=== PATIENT | male | born 1945 | race Caucasian/White ===

== ENCOUNTER 2018-03-11 16:27 | Emergency (ER) | payer OTHER, SELFPAY ==
[2018-03-11 16:28] VITALS: BP 162/71; PULSE 66; RESP 16; TEMP 36.9; O2SAT 99; BMI 28.8
--- NOTE | 2018-03-11 16:31 | RAD_ITS ---
STUDY: X-RAY - RIGHT SHOULDER REASON FOR EXAM: Male, 72 years old. Pain TECHNIQUE: 4 view(s) of the shoulder. COMPARISON: None. FINDINGS: Normal glenohumeral articulation. There is hypertrophic osteoarthrosis of the acromioclavicular joint with inferior osseous spur formation. Normal acromion. Normal humeral head and visualized proximal humerus. The soft tissue structures are unremarkable. There is no demonstrated fracture. Normal visualized pulmonary apex. RAD/Shoulder min 2 Views IMPRESSION: Acromioclavicular degenerative change. Electronically Signed: Sander Teague MD at 17:08 EDT , Service support ,
--- NOTE | 2018-03-11 16:57 | ED.VISSUMM ---
- ER Visit Summary Date of Service: 03/11/18 Chief Complaint: Right shoulder injury History of Present Illness: The patient is a 72 M Zentz to the emergency department with right shoulder injury. Patient was walking outdoors. He slipped and fell backwards. He landed on his buttocks and then hit his right elbow. He states his right shoulder jammed up into the joint. Since then, he has had some increasing pain and diminished range of motion. He did not strike his head. He denies loss of consciousness. He denies other injury. He does not taken anything for pain. He has had no prior problems with shoulder injury or other orthopedic issues. Physical Examination: Exam is relatively unremarkable. Patient does have some tenderness to palpation over the joint but there is no gross laxity. There is no pain at the elbow. Axillary nerve is preserved. There is normal pulses. Lungs are clear. Neck is nontender. Test Results: [] Emergency Department Course and Treatment: X-rays obtained. There is some chronic arthritis in the joint, but no evidence of fracture dislocation. Clinically, I do for the patient likely has rotator cuff injury. He will be placed in a sling for comfort. He will be given 2 days of analgesics. He will be given outpatient orthopedic follow-up. He is comfortable with this plan of care and will be discharged. Treatment Plan: [] Disposition: Right rotator cuff strain Impression: Discharged home This note was generated with [employer] dictation software. It may contain incorrect words, spelling, and punctuation that were not noted in review of the chart prior to signing ED Disposition - Plan for ED Patient: Chief Complaint: Upper Extremity Injury Instructions: ED Sprain Shoulder Prescriptions: Hydrocodone Bitart/Apap 5-325 [[place] 5MG-325MG] 1 tab PO Q4H PRN PRN 2 Days #10 tab PRN Reason: Pain Referrals: Panfilo Bergeron DO [STAFF PHYSICIAN] -
--- NOTE | 2018-03-11 17:00 | ED.DCSUM_ITS ---
- ER Visit Summary Date of Service: 03/11/18 Chief Complaint: Right shoulder injury History of Present Illness: The patient is a 72 M Zentz to the emergency department with right shoulder injury. Patient was walking outdoors. He slipped and fell backwards. He landed on his buttocks and then hit his right elbow. He states his right shoulder jammed up into the joint. Since then, he has had some increasing pain and diminished range of motion. He did not strike his head. He denies loss of consciousness. He denies other injury. He does not taken anything for pain. He has had no prior problems with shoulder injury or other orthopedic issues. Physical Examination: Exam is relatively unremarkable. Patient does have some tenderness to palpation over the joint but there is no gross laxity. There is no pain at the elbow. Axillary nerve is preserved. There is normal pulses. Lungs are clear. Neck is nontender. Test Results: [] Emergency Department Course and Treatment: X-rays obtained. There is some chronic arthritis in the joint, but no evidence of fracture dislocation. Clinically, I do for the patient likely has rotator cuff injury. He will be placed in a sling for comfort. He will be given 2 days of analgesics. He will be given outpatient orthopedic follow-up. He is comfortable with this plan of care and will be discharged. Treatment Plan: [] Disposition: Right rotator cuff strain Impression: Discharged home This note was generated with [employer] dictation software. It may contain incorrect words, spelling, and punctuation that were not noted in review of the chart prior to signing ED Disposition - Plan for ED Patient: Chief Complaint: Upper Extremity Injury Instructions: ED Sprain Shoulder Prescriptions: Hydrocodone Bitart/Apap 5-325 [[place] 5MG-325MG] 1 tab PO Q4H PRN PRN 2 Days #10 tab PRN Reason: Pain Referrals: Panfilo Bergeron DO [STAFF PHYSICIAN] -
[2018-03-11] MEDS: HYDROcodone Bitartrate/Apap 5/325 Tablet PO (17:22)
== END 2018-03-11 17:29 | disposition home or self-care (01) ==
PROVIDERS: Emergency Provider Emergency Medicine
DX: S46.011A Strain of muscle(s) and tendon(s) of the rotator cuff of right shoulder, initial encounter (principal); M19.011 Primary osteoarthritis, right shoulder; W01.0XXA Fall on same level from slipping, tripping and stumbling without subsequent striking against object, initial encounter; Y93.01 Activity, walking, marching and hiking; Y92.008 Other place in unspecified non-institutional (private) residence as the place of occurrence of the external cause; Y99.8 Other external cause status
CPT/HCPCS: 73030; 99283

== ENCOUNTER 2020-02-19 14:22 | Inpatient (IN) | payer MEDICARE, OTHER, SELFPAY ==
[2020-02-19] VITALS (31 sets, daily range): BP systolic 52–180; BP diastolic 14–103; PULSE 55–109; RESP 14–36; TEMP 36.4–36.8; O2SAT 91–99; BMI 28.9; BMI 28.3; BMI 28.4
--- NOTE | 2020-02-19 14:47 | EKG12_ITS ---
Test Reason : Blood Pressure : / mmHG Vent. Rate : 072 BPM Atrial Rate : 072 BPM P-R Int : 244 ms QRS Dur : 098 ms QT Int : 424 ms P-R-T Axes : 015 047 077 degrees QTc Int : 464 ms Sinus rhythm with 1st degree A-V block Otherwise normal ECG Confirmed by JOSUE SOLANO, BRADLEY ([id number]), manager editorial KARY CASTRO ([id number]) on 02/23/2020 10:22:27 AM Referred By: MARILYN Confirmed By:BRADLEY SALAS MD
[2020-02-19 15:21] LABS: Absolute Neutrophil Count 8.6 X10^3/uL (2.0-7.7); Basophil# 0.02 X10^3/uL; Basophil% 0.2 % (0-1); Eosinophil# 0.03 X10^3/uL; Eosinophils% 0.3 % (0-5); Hemoglobin 10.5 g/dL (13.0-16.5); Lymphocyte % 13.6 % (19-41); Mean Corp Hgb Conc 32.8 g/dL (32-36); Mean Corpuscular Hgb 30.1 pg (27.0-32.0); Mean Corpuscular Volume 91.7 fL (80-94); Mean Platelet Vol. 11.1 fl (6.2-12.0); Monocyte% 8.1 % (0-10); NRBC Flagged by Analyzer 0 % (0-5); Neutrophil # 8.57 X10^3/uL (2.7-7.7); Neutrophil % 77.3 % (47-70); Platelet Count 269 K/mm3 (150-450); RBC Distribution Width CV 14.6 % (11.6-14.6); RBC Distribution Width SD 48.5 fl (35.1-43.9); Red Blood Count 3.49 M/mm3 (4.6-6.2); White Blood Count 11.1 K/mm3 (4.4-11.0)
--- NOTE | 2020-02-19 15:22 | RAD_ITS ---
STUDY: X-RAY CHEST REASON FOR EXAM: Male, 74 years old. INCREASING SOB AND SLIGHT COUGH. REPORTS SOB STARTING THIS PAST WEEKEND. TECHNIQUE: Single AP portable view of the chest. COMPARISON: None. FINDINGS: EKG electrodes are seen. Increased markings at the lung bases with areas of confluence. This may represent a combination of scarring with bibasilar atelectasis. Mild vascular congestion. Blunting of both costophrenic angles. Normal size heart. Normal mediastinum and sugey. Normal visualized pulmonary arteries. There is atherosclerotic calcification of the aortic arch with tortuosity. There are diffuse degenerative changes of the visualized thoracic spine. Normal visualized ribs, clavicles, and shoulders. There is no demonstrated abnormality of the visualized soft tissue structures of the upper abdomen. RAD/Chest 1 View (Portable) IMPRESSION: Findings suggestive of scarring at the lung bases with superimposed bibasilar atelectasis and mild degree of CHF. Blunting of both costophrenic angles slightly worse on the right side. Electronically Signed: Rafael Camilo, at 15:37 EDT , Service support ,
[2020-02-19 15:37] LABS: ALB/GLOB Ratio 0.8 RATIO (0.9-2.4); AST(SGOT) 67 U/L (15-37); Alanine Aminotransfer ALT/SGPT 87 U/L (16-61); Albumin, Serum 3.2 g/dL (3.2-5.0); Alkaline Phosphatase 89 U/L (45-117); Anion Gap 9 (5-15); BUN 48 mg/dL (7-18); BUN/Creat Ratio 25.5 RATIO (10-20); Chloride 108 mmol/L (98-107); Creatinine, Serum 1.88 mg/dL (0.70-1.30); EST Glomerular Filtration Rate 38 mL/min (>60); Est Glom Filt Rate - Afr Amer 46 mL/min (>60); Estimated Creatinine Clearance 34.36 ml/min; Globulin 3.9 g/dL (2.2-4.2); Glucose 203 mg/dL (74-106); Potassium 4.7 mmol/L (3.5-5.1); Protein, Total 7.1 g/dL (6.4-8.2); Sodium Level 138 mmol/L (136-145)
[2020-02-19 15:46] LABS: BNP,B-Type NATRIURETIC PEPTIDE 1171.8 pg/mL (0-100)
--- NOTE | 2020-02-19 15:52 | ED.DCSUM_ITS ---
History of Present Illness Chief Complaint: Shortness of Breath Informant: Patient Onset: Days Context: Sudden Onset Timing: Continuous Quality: Shortness of breath since the weekend Location: Respiratory Current Severity: Mild Maximum Severity: Moderate Worsened by: Exertion Relieved by: Nothing Associated Symptoms: No associated symptoms Narrative: Patient is a 74-year-old male who presents with shortness of breath that started this past weekend. He denies fever, chills or night sweats. He denies headache, photophobia, neck pain or neck stiffness. He denies rhinorrhea, congestion or postnasal drainage. Denies loss of smell or taste. He denies difficulty breathing or swallowing. He denies trouble with speech. He denies chest pain of any type. He denies nausea, vomiting diarrhea. He denies black or maroon stool. He denies urologic symptoms. He states occasionally has a cough, which he attributes to smoking. Called in to ask if he had the COVID-19 infection. She informed me that he was told he needed a cardiac catheterization and stent placed last year which he declined. Prior similar symptoms: No Recent Illness/Hospitalization: No - Past Medical History (1) Hypertension Status: Chronic (2) Type 2 diabetes mellitus Status: Chronic Past Medical History - Allergies and Home Meds Allergies/Adverse Reactions: Allergies No Known Allergies Allergy (Verified 02/19/20 14:24) [facility] [[facility]] - Prior records reviewed: Yes Surgical History: noncontributory Lives: Alone Smoking Status: Current every day smoker Alcohol: None Drugs: None Review of Systems General: Denies: Chills, Fever, Sweats Eyes: Denies: Visual changes - bilaterally, Blurred Vision - bilaterally, Diplopia ENT: Denies: Rhinorrhea, Sore throat Cardiovascular: Denies: Chest pain, Palpitations Respiratory: Reports: Dyspnea, Cough, Dyspnea on exertion. Denies: Sputum, Orthopnea, Paroxysmal nocturnal dyspnea Gastrointestinal: Denies: Abdominal pain, Nausea, Vomiting, Diarrhea, Constipation, Melena, Hematochezia Genitourinary: Denies: Dysuria, Hematuria, Frequency Musculoskeletal: Denies: Myalgias, Arthralgias, Neck pain, Back pain, Swelling, Extremity Pain Skin: Denies: Rash, Wounds Neurological: Denies: Headache, Weakness, Numbness Endocrine: Denies: Polyuria, Polydipsia Hematologic: Denies: Easy bruising, Easy bleeding Allergy: Denies: Uticaria, Swelling of the mouth, Swelling of the tongue Physical Exam Vital Signs/Narrative: Vital Signs Temp Pulse Resp BP Pulse Ox 02/19/20 14:38 98.2 F 74 18 160/68 H 94 02/19/20 14:25 98.2 F 68 17 147/71 H 93 Inital Vital Signs reviewed: Yes General: Well nourished, Well developed, No Acute Distress Head: Normocephalic, Atraumatic. Negative for: Trauma, Tenderness Eyes: Perrl, EOMI. Negative for: Pale conjunctiva, Scleral icterus ENT: Moist mucous membranes, No rhinorrhea Neck: Supple, Nontender, No lymphadenopathy, No JVD Cardiovascular: Regular rate, Regular rhythm, No murmurs, Normal S1, Normal S2 Respiratory: No distress, Chest nontender, Rales - Rales noted bilaterally Abdomen: Soft, Nontender, Nondistended, Normal bowel sounds, No masses. Negative for: Hepatomegaly, Splenomegaly, Mass, Pulsatile mass Rectal: Deferred Back: Nontender, Normal Inspection. Negative for: CVA tenderness Extremities: Nontender, Edema - 3+ Skin: Normal color, No rash Neurological: Alert, Oriented x3, Cranial nerves II-XII grossly intact, Normal Strength, Normal Sensation Psychological: Normal affect, Normal Mood Diagnostic/Tx/Re-eval Chest X-Ray - ED: 1 View, Read by ED Physician, Normal, Heart, Mediastinum, Bony Structures, - - There is increased interstitial markings noted. This may represent congestive heart failure - Rhythm Strip Rhythm Strip: Sinus Rhythm - EKG Initial EKG Interpretation: Sinus Rhythm - Sinus rhythm with a ventricular rate of 72. There is evidence of a first-degree AV block with a VA interval of 244 ms. QRS duration 98 ms. QT duration 424 ms. [place] is normal. There is no acute ischemic changes noted. - Medical Decision Making With complaint of shortness of breath bilateral rales need to evaluate for cardiac ischemia, congestive heart failure, bilateral pneumonia, viral respiratory infection. EKG, chest x-ray and appropriate labs were ordered. Patient was treated with Lasix for diuresis since clinically he is fluid overloaded. He also has treated with nitroglycerin for preload reduction. Patient requested transfer to [facility]. They were paged to determine if they have capacity to accept him: otherwise, will admit patient to [facility]. Spoke with the personal service representative at the [facility]. She informed that he has Medicare insurance. She recommend that he stay in the hospital at [facility]. I was informed at 1635 the patient became hypoxic. Pulse ox 85%. He is presently on 4 L by nasal cannula. Will start nitroglycerin drip for acute decompensated heart failure. Case discussed with Dr. Goodman. He requested not to start the nitroglycerin drip. He requested additional Lasix. He will admit patient to PCU. - Critical Care Time Critical care time (excluding procedures): 30-74 minutes, Discussing w/Patient &/or Family/Client Technical Professional, Discussing w/Consultants, Arranging Admission or Transfer ED Disposition - Plan for ED Patient: Diagnosis: New onset of congestive heart failure, Elevated troponin I level, Anginal equivalent dyspnea, FREIDA (acute kidney injury), Hypertension, Type 2 diabetes mellitus, Respiratory failure with hypoxia [facility] [[facility] Provider] -
--- NOTE | 2020-02-19 16:12 | NURSING ---
SPOKE WITH [facility] SHE TOOK THE PATIENTS INFORMATION AND STATED THAT SOMEONE WOULD BE GETTING BACK TO [place]. ASKED IF IT WAS OK TO ADMIT TO HERE AND THEY STATED THAT THEY ARE UNABLE TO SAY ONE WAY OR THE OTHER BUT DO WHAT IS IN THE BEST INTEREST OF THE PTY
[2020-02-19] MEDS: Furosemide 20 MG/2 ML VIAL IV ×2 (16:28→17:01)
[2020-02-19] MEDS: Nitroglycerin Oint 1 INCH PACKET TRANSDERM. (16:28)
--- NOTE | 2020-02-19 16:41 | ED.RN ---
DR SANDERS SPOKE WITH HEIDY WITH [facility]. PT WILL STAY HERE. SHE HAD BILLING INFORMATION TO RELAY TO REGISTRATION SO I TRANSFERRED THE CALL
--- NOTE | 2020-02-19 16:45 | ED.RN ---
HEIDY DIRECT NUMBER IS [phone] [facility] [id number]
[2020-02-19] MEDS: Nitroglycerin Infusion 250 ML 6 MG CONT INF (16:55)
--- NOTE | 2020-02-19 17:10 | HP.PCM_ITS ---
Problem List (1) Elevated troponin I level Status: Acute (2) New onset of congestive heart failure Status: Acute (3) Respiratory failure with hypoxia Status: Acute (4) Hypertension Status: Chronic (5) Type 2 diabetes mellitus Status: Chronic History of Present Illness Date of Admission: 02/19/20 Chief Complaint: short of breath The patient is a 74 year old M who for the past 2 weeks is just been progressively more short of breath. States just been more short of breath in general but also when he is exerting herself. Presented to the emergency room and had an x-ray that was consistent with CHF, BNP was elevated as well as troponin. Patient received total 40 mg of IV furosemide and received a Nitropaste. Patient did require oxygen while he was here. Patient himself denies any chest pain but does state that he is having increasing lower extremity edema. Dr. Rodas, of the emergency room, [facility] the [facility] and stated that the patient has never had CHF at their facility before. After my initial evaluation, patient was requiring much more oxygen and 1 of being put on nonrebreather. Discussed with Dr. Nelson as well as Dr. Rodas. Plan is to intubate the patient put him in the ICU. Patient will be checked for COVID-19 and we will check a d-dimer as well to see if patient has possible pulmonary emboli. Patient would not be a candidate for CT angiogram given his chronic kidney disease may require empiric anticoagulation with heparin drip if the d-dimer is significantly elevated. [] Past Medical History Past Medical History (Chronic Problems): Chronic Problems Hypertension (Chronic) Type 2 diabetes mellitus (Chronic) Allergies No Known Allergies Allergy (Verified 02/19/20 14:24) Home Medications: Ambulatory Orders Medication Instructions Recorded Allopurinol [Zyloprim] 300 mg PO DAILY 02/19/20 Alogliptin Benzoate [Alogliptin] 12.5 mg PO DAILY 02/19/20 Aspirin E.C. [Ecotrin] 81 mg PO DAILY@0800 02/19/20 Chlorthalidone 37.5 mg PO DAILY 02/19/20 Lisinopril 20 mg PO BID 02/19/20 Metoprolol Tartrate 50 mg PO BID 02/19/20 [place]-3 Fatty Acids/Fish Oil [Fish 1 cap PO DAILY 02/19/20 Oil 1,000 mg Capsule] glipiZIDE [Glucotrol] 10 mg PO DAILY 02/19/20 metFORMIN HCl [Glucophage] 500 mg PO BIDCM 02/19/20 Surgical History: noncontributory Lives: Alone Smoking Status: Heavy Smoker (>10/day) Tobacco Use: Cigarettes Alcohol: None Drugs: Marijuana - Occasional - *Family History Maternal History Items: - - No CAD Review of Systems Constitutional: Denies: Anorexia, Chills, Fever, Night Sweats Eyes: Denies: Blurred vision, Double vision HEENT: Denies: Head Aches, Sinus Congestion, Sinus Drainage Cardiovascular: Reports: Edema. Denies: Chest Pain, Palpitations Respiratory: Reports: Shortness of Breath. Denies: Cough Gastrointestinal: Denies: Abdominal Pain, Nausea, Vomiting Genitourinary: Denies: Dysuria Musculoskeletal: Denies: Joint Pain, Joint Tenderness Skin: Denies: Rash, Wounds Neurological: Denies: Numbness, Tingling, Focal weakness Psychiatric: Denies: Anxiety, Depression Hematologic/ Lymphatic: Denies: Easy Bruising, Easy Bleeding, Hx of blood clot Comment: All review of systems were negative except as mentioned above in the history of present illness and the other review of systems. VTE Information - Inpt Only VTE Present on Admission: No VTE Mechan Device Prophylaxis: None VTE Pharm Prophylaxis ordered?: Yes Patient Problems: Active and Suspected Problems New onset of congestive heart failure (Acute) Elevated troponin I level (Acute) Respiratory failure with hypoxia (Acute) - Physical Exam Vitals/I&O's: Vital Signs Temp Pulse Resp BP Pulse Ox 36.6 C 83 26 H 164/74 H 91 02/19/20 16:43 02/19/20 16:55 02/19/20 16:43 02/19/20 16:55 02/19/20 16:43 Oxygen Flow Rate (L/min) 4 Oxygen Delivery Method Nasal Cannula Weight: 86.3 kg Body Mass Index (BMI) 28.9 General: Alert, Cooperative, No apparent distress, - - No respiratory distress. No conversational dyspnea. Patient is disheveled and appears older than stated age. HEENT: Atraumatic, Normocephalic Oral: Moist Mucosa, No Gingival or Mucosal Lesions/ Ulcerations Neck: No Nodes, Trachea Midline Lungs: Normal air movement, - - Coarse breath sounds bilaterally Cardiovascular: Regular rate, Regular Rhythm, Normal S1, Normal S2, No murmurs Abdomen: Bowel Sounds Present, Soft, Non Tender, Non-Distended, No Hepato- splenomegaly Extremities: No Calf Tenderness, Edema - No pitting Skin: No rashes, No breakdown Musculoskeletal: No Tenderness to Palpation of Joints or Extremities, No Muscle Wasting Neurological: Deep Tendon Reflexes 2+/4 and Symmetrical, - - No clonus Psych/Mental Status: Normal Affect, Appropriate Laboratory Results 02/19/20 15:00: WBC 11.1 H, RBC 3.49 L, Hgb 10.5 L, Hct 32.0 L, MCV 91.7, MCH 30.1, MCHC 32.8, RDW Std Deviation 48.5 H, RDW Coeff of Юлия 14.6, Plt Count 269, MPV 11.1, Immature Gran % (Auto) 0.500, Neut % (Auto) 77.3 H, Lymph % (Auto) 13.6 L, [place] % (Auto) 8.1, Eos % (Auto) 0.3, Baso % (Auto) 0.2, Absolute Neuts (auto) 8.6 H, Absolute Lymphs (auto) 1.50, Nucleated RBC % 0 02/19/20 15:00: Sodium 138, Potassium 4.7, Chloride 108 H, Carbon Dioxide 21.0, Anion Gap 9, BUN 48 H, Creatinine 1.88 H, Estim Creat Clear Calc 34.36, Est GFR (MDRD) Af Amer 46 L, Est GFR (MDRD) Non-Af 38 L, BUN/Creatinine Ratio 25.5 H, Glucose 203 H, Calcium 9.0, Total Bilirubin 0.40, AST 67 H, ALT 87 H, Alkaline Phosphatase 89, Troponin I 0.238 H, Total Protein 7.1, Albumin 3.2, Globulin 3.9, Albumin/Globulin Ratio 0.8 L 02/19/20 15:00: Lactic Acid 1.0 02/19/20 15:00: B-Natriuretic Peptide 1171.8 H EKG reviewed and showed normal sinus rhythm with no acute changes. Chest x-ray reviewed and showed bilateral pulmonary edema. Questionable small effusion in the right costophrenic angle. Assessment/Plan All Active Problems New onset of congestive heart failure (Acute) Elevated troponin I level (Acute) Respiratory failure with hypoxia (Acute) 1. Acute hypoxic respiratory failure: Patient's status is rapidly gotten worse during this time. Possibilities could include evolving pneumonia, worsening heart failure, COVID-19 and possible associated acute respiratory distress syndrome, pulmonary emboli versus other. Patient currently being intubated in the emergency room. Will put the patient on empiric antibiotics and check COVID-19 as well as a d-dimer. Will check pneumonia studies as well. Pt will be on the ventilator, [facility] consult. 2.Acute CHF exacerbation: Unclear what type at this time. Plan is to continue with IV furosemide, check echocardiogram, consult cardiology (discussed with Dr. Rodriguez). [facility] 3. Elevated troponins: Unclear etiology. May be demand ischemia. We will cycle troponins. Continue with aspirin and metoprolol. 4. Diabetes mellitus type 2: We will hold on his oral agents. Check an A1c and have sliding scale insulin 5. Chronic kidney disease stage III: No baseline labs to compare to so this could be acute but I suspect is prime more chronic given patient's underlying diabetes and hypertension. 6. VTE prophylaxis: High risk. Patient will be on enoxaparin. 7. Advanced care planning: Before the patient got worse, he stated he wished to be full CODE STATUS.
[2020-02-19] MEDS: Etomidate 20 MG/10 ML Vial IV (17:38)
[2020-02-19] MEDS: Rocuronium Bromide 50 MG/5 ML Vial 100 MG IV (17:39)
--- NOTE | 2020-02-19 18:00 | CPS ---
Critical blood gas results gave to Dr. Rodas.
[2020-02-19] MEDS: LORazepam 2 MG/ML Syringe 5 MG IV (18:09)
[2020-02-19] MEDS: Heparin Injection (Vial) 5,000 UNIT/ML VIAL 6000 UNIT IV (18:11)
[2020-02-19 18:13] LABS: Partial Thromboplast Time 32.9 Seconds (24.1-36.2)
[2020-02-19] MEDS: HEPARIN/D5w 25,000 UNITS 25,000 UNITS/250 ML IV.SOLN. 12 UNITS IV (18:14)
--- NOTE | 2020-02-19 18:19 | ED.RN ---
CAYDEN DAVIDSON [phone]
[2020-02-19 18:23] LABS: International Normalized Ratio 1.1; Prothrombin Time (Protime)PT. 13.2 SECONDS (11.7-14.9)
--- NOTE | 2020-02-19 18:25 | ED.RN ---
UNABLE TO PLACE NG/OG X 2 RNS. AWARE.
[2020-02-19 18:30] LABS: Base Excess -8 mmol/L (-2 to +2); Bicarbonate 20.4 mmol/L (22-26); PO2 125 mmHG (75-100); SO2 98 % (95-99); Total Carbon Dioxide 22 mmol/L; pCO2 55.9 mmHg (35-45); pH 7.17 (7.35-7.45)
--- NOTE | 2020-02-19 18:34 | RAD_ITS ---
STUDY: X-RAY CHEST REASON FOR EXAM: Male, 74 years old. ET TUBE PLACEMENT TECHNIQUE: Single AP portable view of the chest. COMPARISON: Same day, 3:17 PM. FINDINGS: Endotracheal tube terminates 6 cm above the odlly. No other changes since 3 hours earlier. Electronically Signed: Jesse Castrejon MD at 18:49 EDT , Service support , RAD/Chest 1 View (Portable)
--- NOTE | 2020-02-19 18:35 | CCHN_ITS ---
Hospitalist Note Given patient deterioration in the ED and required intubation, requested transition of care to the COVID unit with plan of care as noted: HPI: The patient is a 74 y/o M[facility] PMH[facility]: HTN, HLD, Diabetes mellitus type II, Gout, Tobacco use who presents to the [facility] ED on 02/19/20 with history of progressively worsening dyspnea with occasional nonproductive cough, worse over the last 2 weeks and worse with exertion but more severe on day of ED presentation with no specific fever, chills, productive cough, myalgias, stomach discomfort, nausea or vomiting, diarrhea, loss or alteration to sense of taste or smell. Work-up in the ED included initial vital signs T 98.2, heart rate 68, BP 147/71, respiratory rate 17, 93% on room air however patient deteriorated quickly with repeat respiratory rate 26, 91% on 4 L and eventually required BiPAP with eventual transition to intubation, CBC with WC 11.1, hemoglobin 10.5, platelet 269 with left shift with mild lymphopenia however absolute normal, CMP with chloride 108, BUN/creatinine 48/1.88, glucose 203, lactic acid 1, AST/ALT 67/87, troponin 0.238, BNP 1171.8, chest x-ray with findings suggestive of scarring at the lung bases with superimposed bibasilar atelectasis and mild degree of CHF with blunting of both costophrenic angles slightly worse on the right side, EKG with sinus rhythm with a first-degree AV block with no acute evidence of ischemia. In the ED patient administered Lasix 20 mg IV x1, Nitro-Bid 1 inch applied. Following patient respiratory duration patient initiated on rocuronium and administered etomidate. Per discussion with ED physician given patient quick respiratory deterioration initiated on a heparin drip with bolus. Plan of Care: 1. Acute Hypoxic Respiratory Failure secondary to Unclear Specific Etiology, Possibly Acute New Onset CHF Exacerbation of Unclear Type versus Acute Viral Syndrome, COVID-19: Will admit to the COVID ICU unit, continue intubation status with initiation propofol and fentanyl, continue MDI inhaler PRN albuterol, maintain on IV Zosyn and Vancomycin w/ pending MRSA screen with de-escalation if appropriate, HOB, IS parameters w/ pending sputum cultures and urine antigens, respiratory viral panel and requested COVID, will obtain procalcitonin, D-dimer, CRP, CPK, Ferritin, LDH, Alk phos/AST/ALT, given noted EKG with sinus rhythm with a first-degree AV block with no acute evidence of ischemia, trop 0.238 will obtain ECHO, cycle cardiac enzymes with repeat EKG in AM, continue supportive care including q 2 hour turning including prone given no prone bed availability, maintain on IV lasix diuresis given possibly new onset CHF exacerbation as noted, TSH/FT4, mag, FLP in AM requested also, maintain on asa, metoprolol, holding lisinopril in case FREIDA with continued Cr trending, closely monitor for worsening status for ARDS and multiorgan failure, Bld cx x 2 obtained in the ED. Cardiology aware and discussed case, agree with current plan for care. Dr. Nelson, ICU consulted and aware. Given significant decline pending work-up as noted discussed with ED physician requested heparin bolus and drip initiated. 2. Indeterminate cardiac enzymes, possible early NSTEMI versus Myocarditis given acute presentation #1: ED evaluation with troponin 0.238, BNP 1171.8, chest x-ray with findings suggestive of scarring at the lung bases with superimposed bibasilar atelectasis and mild degree of CHF with blunting of both costophrenic angles slightly worse on the right side, EKG with sinus rhythm with a first-degree AV block with no acute evidence of ischemia. Will maintain on a monitored bed, continue serial cardiac enzymes and EKGs. Obtain magnesium level upon admission. Continue Heparin drip. Continue medical management w/ asa, BB, defer statin given mild LFT elevations and possible #1, obtain ECHO. FLP in AM. 3. FREIDA versus CKD stage III: Admission BUN/Cr 48/1.88, baseline renal function unknown and patient's denies any notable renal history but unclear specific baseline, repeat CMP in a.m., will hold lisinopril in case FREIDA especially given acute presentation and #1, will plan continuation of IV diuresis with Lasix as noted. 4. Hypertension: Continue home regimen including metoprolol, holding lisinopril, holding chlorthalidone given IV Lasix usage as noted, PRN hydralazine. 5. Hyperlipidemia: Not on regimen, FLP in a.m., temporarily hold fish oil, given elevated LFTs likely secondary to #1 defer addition. 6. Diabetes mellitus type II: Hold oral home regimen, HgbA1c requested, NPO status, accu checks w/ ISS every 6 hours while NPO. 7. Normocytic anemia, unclear if chronic: Admission CBC with hemoglobin 10.5, likely chronic but unclear, will continue to trend. 8. GERD: Maintain on Protonix. 9. DVT prophylaxis: SCDs, continue heparin drip. 10. CODE STATUS: Full code.
[2020-02-19] MEDS: Propofol 10MG/Ml 1,000 MG/100 ML Bottle 5.2 MG CONT INF (19:02)
--- NOTE | 2020-02-19 19:02 | ECHOCS_ITS ---
Reason For Study: CHF Procedure This was a 2D Doppler, Color Flow transthoracic echocardiogram. The study was technically difficult. Patient is intubated. Contrast injection was performed. Exam performed portable in ICU/CCU. Left Ventricle Normal LV size. Mild segmental systolic dysfunction (see wall motion). The estimated ejection fraction is 50 %. There is evidence of diastolic dysfunction. Anterio-Basal: Hypokinetic. Posterior- Basal: Hypokinetic. Infero-Basal: Akinetic. Mid-Anterior : Hypokinetic. Mid-Lateral : Hypokinetic. Mid-Posterior: Hypokinetic. Mid-Inferior: Akinetic. Right Ventricle Normal RV size. Normal systolic function. Atria The left atrium is mildly enlarged. Normal right atrium. No doppler evidence for ASD. Mitral Valve There is mild mitral annular calcification. Normal mitral valve. Mild (1+) mitral valve insufficiency. Tricuspid Valve Normal tricuspid valve. Trivial tricuspid valve insufficiency. Unable to estimate RV systolic pressure/pulmonary artery pressure due to technically difficult study. Aortic Valve Trisinus/trileaflet aortic valve. Severe diffuse aortic valve thickening. Severe diffuse aortic valve calcification. Severe aortic stenosis. Mild (1+) aortic valve insufficiency. Pulmonic Valve The pulmonic valve is not well visualized. Great Vessels Normal sized aortic root. Calcified aortic root. Pericardium/Pleural No pericardial effusion. Medication Diluted definity 2ml given slow IV push to enhance endocardial definition. MMode/2D Measurements & Calculations LVIDd: 4.1 cm IVSd: 1.7 cm LVOT diam: 2.2 cm LVIDs: 2.6 cm LVPWd: 1.2 cm RVDd: 3.8 cm FS: 36.2 % LVOT area: 3.8 cm2 Ao root diam: 2.9 cm LAV(MOD-bp): 98.3 ml LA A4 area: 26.0 cm2 LAV(MOD-bp) Indexed: 49.2 ml/m2 LAV(MOD-sp2): 101.8 ml LAV(MOD-sp4): 92.6 ml LA dimension(2D): 4.3 cm RA A4 area: 17.0 cm2 Doppler Measurements & Calculations MV E max misael: 74.4 cm/sec Lat Peak E' Misael: 6.9 cm/sec Med Peak E' Misael: 5.0 cm/sec MV A max misael: 80.1 cm/sec E/E' lat: 10.8 E/E' med: 15.0 MV E/A: 0.93 Ao V2 max: 491.8 cm/sec LV V1 max: 95.8 cm/sec SV(LVOT): 96.7 ml Ao max P.9 mmHg LV V1 max P.7 mmHg Ao V2 mean: 346.2 cm/sec LV V1 mean P.1 mmHg Ao mean P.5 mmHg LV V1 mean: 69.2 cm/sec Ao V2 VTI: 119.3 cm LV V1 VTI: 25.6 cm ROSA(I,D): 0.81 cm2 ROSA(V,D): 0.73 cm2 PA V2 max: 116.3 cm/sec Interpretation Summary The study was technically difficult. Contrast injection was performed. Mild segmental systolic dysfunction (see wall motion). The estimated ejection fraction is 50 %. The left atrium is mildly enlarged. There is mild mitral annular calcification. Mild (1+) mitral valve insufficiency. Trivial tricuspid valve insufficiency. Severe aortic stenosis. Mild (1+) aortic valve insufficiency. Calcified aortic root. Unable to estimate RV systolic pressure/pulmonary artery pressure due to technically difficult study. There is evidence of diastolic dysfunction. Ordering Physician: Kaiden Goodman Referring Physician: [facility] Performed By: Tatyana Duran RDCS
[2020-02-19 19:58] LABS: Procalcitonin 1.49 ng/mL (0.00-0.09)
[2020-02-19 19:59] LABS: Ferritin 143 ng/mL (26-388); LDH 314 U/L (87-241); Magnesium 1.8 mg/dL (1.6-2.6); T4 Free Direct 0.96 ng/dL (0.76-1.46)
[2020-02-19 20:03] LABS: Allen Test POS; Blood Gas Specimen Type ART; FI02 100; Mode A-C; O2 Delivery Device Vent; PEEP 10; RR 14; SITE R RADIAL; Vt 450
[2020-02-19 20:04] LABS: Time Given 1800
[2020-02-19 20:12] LABS: D-Dimer Quantitative (DVT/PE) 2.75 FEU/ug/m (0.27-0.49)
[2020-02-19] MEDS: fentaNYL drip 100 ML 5 MCG IV (20:21)
[2020-02-19] MEDS: Insulin Lispro 100 UNIT/ML INSULN.PEN SC (20:23)
[2020-02-19] MEDS: Chlorhexidine 15 ML PO (20:53)
[2020-02-19] MEDS: 0.9% Saline Lock 10 ML Syringe IV (21:01)
[2020-02-19 21:55] LABS: Allen Test POS; Blood Gas Specimen Type ART; SITE R RADIAL
[2020-02-19 21:57] LABS: Mode A-C; O2 Delivery Device Vent; RR 14; Vt 450
[2020-02-19 21:58] LABS: FI02 100; PEEP 10
[2020-02-19 21:59] LABS: Base Excess -9 mmol/L (-2 to +2); Bicarbonate 18.5 mmol/L (22-26); PO2 112 mmHG (75-100); Time Given 2011; pCO2 44.3 mmHg (35-45); pH 7.23 (7.35-7.45)
[2020-02-19 22:00] LABS: SO2 97 % (95-99); Total Carbon Dioxide 20 mmol/L
[2020-02-19 22:18] LABS: M R Staph aureus DNA By PCR Negative (Negative); Probe Check PASS; Specimen Processing Control PASS
[2020-02-19 22:20] LABS: Bedside Glucose 234 mg/dL (70-110)
--- NOTE | 2020-02-19 23:35 | NURSING ---
Dr. Garber at bedside for central line placement.
[2020-02-20] VITALS (70 sets, daily range): BP systolic 74–140; BP diastolic 40–72; PULSE 50–67; RESP 13–22; TEMP 36.6–37.2; O2SAT 90–98; BMI 27.5
--- NOTE | 2020-02-20 00:44 | RAD_ITS ---
STUDY: X-RAY CHEST REASON FOR EXAM: Male, 74 years old. central line placement TECHNIQUE: Single AP portable view of the chest. COMPARISON: 02/19/2020 FINDINGS: Central venous line is seen on the right side its tip is at the lower part of the superior vena cava. Endotracheal tube is seen its tip is 4 cm superior to the dolly. Ill-defined subpleural groundglass opacities are seen more prominent in the lung bases , may represent atypical pneumonia or viral pneumonia (COVID-19 ?). There is no demonstrated pleural abnormality. Normal size heart. Normal mediastinum and sugey. Normal visualized pulmonary arteries. Normal visualized aortic arch and descending thoracic aorta. Normal visualized thoracic spine. There is degenerative osteoarthritis of the bilateral shoulders. There is no demonstrated abnormality of the visualized soft tissue structures of the upper abdomen. RAD/CXR for Line Placement IMPRESSION: Ill-defined subpleural groundglass opacities are seen more prominent in the lung bases , may represent atypical pneumonia or viral pneumonia (COVID-19 ?). Electronically Signed: Johnnie Vaughan, at 1:31 EDT Tel , Service support ,
--- NOTE | 2020-02-20 00:54 | PCM.PN.BLA ---
Progress Note R IJ insertion] Reason for procedure: Septic shock requiring pressures The patient was appropriately placed to maximize comfort. The site was cleansed and allowed to dry prior to draping the patient. The skin overlying the access site was infiltrated with lidocaine. The vein was successfully cannulated and a guidewire was inserted. The needle was removed and the vein dilator was advanced over the guidewire. The dilator was removed and a catheter was threaded over the guidewire while maintaining control over the guidewire. The guidewire was removed and each port was sequentially aspirated and then flushed with saline. The catheter was sutured in place and the site was dressed using sterile technique. A chest x-ray was obtained and the tip is at the lower tip of the SVC. The patient tolerated the procedure well. STROKE Vital Signs/Narrative: Vital Signs Temp Pulse Resp BP BP Pulse Ox 02/20/20 00:30 90/44 L 02/20/20 00:15 128/60 H 02/20/20 00:00 98.4 F 55 L 19 H 106/48 L 94 02/19/20 23:45 111/46 L 02/19/20 23:30 92/39 L 02/19/20 23:15 55 L 102/46 L 02/19/20 23:00 58 L 21 H 97/48 L 98 02/19/20 22:45 56 L 69/35 L 02/19/20 22:40 56 L 17 98 02/19/20 22:30 57 L 17 62/38 L 98 02/19/20 22:15 58 L 17 72/37 L 98 02/19/20 22:02 58 L 02/19/20 22:00 58 L 18 74/43 L 98 02/19/20 21:30 59 L 17 79/46 L 99 02/19/20 21:15 60 25 H 68/41 L 99 02/19/20 21:00 61 25 H 65/36 L 97 Procedures: 61094 US Guide Vascular Access
[2020-02-20 01:07] LABS: Hemoglobin A1c 7.4 % (4.2-6.3)
[2020-02-20] MEDS: Insulin Lispro 100 UNIT/ML INSULN.PEN SC ×3 (01:30→18:58)
[2020-02-20 01:36] LABS: Partial Thromboplast Time 114.2 Seconds (24.1-36.2)
--- NOTE | 2020-02-20 02:27 | SEPSISNOTE ---
Sepsis Note - Physical Exam/Vitals Objective: Chest X-Ray 02/19/20 15:22 IMPRESSION: Findings suggestive of scarring at the lung bases with superimposed bibasilar atelectasis and mild degree of CHF. Blunting of both costophrenic angles slightly worse on the right side. Electronically Signed: Rafael Sandhudorothy, at 15:37 EDT , Service support , Chest X-Ray 02/19/20 18:34 Chest X-Ray 02/20/20 00:44 IMPRESSION: Ill-defined subpleural groundglass opacities are seen more prominent in the lung bases , may represent atypical pneumonia or viral pneumonia (COVID-19 ?). Electronically Signed: Johnnie Vaughan, at 1:31 EDT Tel , Service support , Temp Pulse Resp BP Pulse Ox 98.4 F 54 L 17 95/52 L 95 02/20/20 00:00 02/20/20 02:00 02/20/20 02:00 02/20/20 02:00 02/20/20 02:00 02/20/20 02/19/20 02/19/20 00:35 21:20 20:09 WBC RBC Hgb Hct MCV MCH MCHC RDW Std Deviation RDW Coeff of Юлия Plt Count MPV Immature Gran % (Auto) Neut % (Auto) Lymph % (Auto) Craven % (Auto) Eos % (Auto) Baso % (Auto) Absolute Neuts (auto) Absolute Lymphs (auto) Nucleated RBC % PT INR APTT 114.2 H* D-Dimer Quant (PE/DVT) Specimen Type Sample Site pH Bicarbonate Actual POC Total CO2 Base Excess O2 Saturation O2 % ABG pCO2 ABG pO2 Dinh Test Respiration Rate O2 Delivery Device Vent Mode Tidal Volume POC PEEP Blood Gas Notified Whom Blood Gas Notified Time Sodium Potassium Chloride Carbon Dioxide Anion Gap BUN Creatinine Estim Creat Clear Calc Est GFR (MDRD) Af Amer Est GFR (MDRD) Non-Af BUN/Creatinine Ratio Glucose Hemoglobin A1c Lactic Acid Calcium Magnesium Ferritin Total Bilirubin AST ALT Alkaline Phosphatase Lactate Dehydrogenase Troponin I 0.441 H C-React Prot Ext Range B-Natriuretic Peptide Total Protein Albumin Globulin Albumin/Globulin Ratio Procalcitonin Free T4 COVID-19 (JET) MRSA (PCR) POC Glucose 234 H 02/19/20 02/19/20 02/19/20 20:05 20:00 19:15 WBC RBC Hgb Hct MCV MCH MCHC RDW Std Deviation RDW Coeff of Юлия Plt Count MPV Immature Gran % (Auto) Neut % (Auto) Lymph % (Auto) Craven % (Auto) Eos % (Auto) Baso % (Auto) Absolute Neuts (auto) Absolute Lymphs (auto) Nucleated RBC % PT INR APTT D-Dimer Quant (PE/DVT) 2.75 H* Specimen Type ART Sample Site R RADIAL pH 7.23 L Bicarbonate Actual 18.5 L POC Total CO2 20 Base Excess -9 L O2 Saturation 97 O2 % 100 ABG pCO2 44.3 ABG pO2 112 H Dinh Test POS Respiration Rate 14 O2 Delivery Device Vent Vent Mode A-C Tidal Volume 450 POC PEEP 10 Blood Gas Notified Whom [facility] Blood Gas Notified Time 2010 Sodium Potassium Chloride Carbon Dioxide Anion Gap BUN Creatinine Estim Creat Clear Calc Est GFR (MDRD) Af Amer Est GFR (MDRD) Non-Af BUN/Creatinine Ratio Glucose Hemoglobin A1c Lactic Acid Calcium Magnesium Ferritin Total Bilirubin AST ALT Alkaline Phosphatase Lactate Dehydrogenase Troponin I 0.364 H C-React Prot Ext Range B-Natriuretic Peptide Total Protein Albumin Globulin Albumin/Globulin Ratio Procalcitonin Free T4 COVID-19 (JET) MRSA (PCR) POC Glucose 02/19/20 02/19/20 02/19/20 19:15 19:00 18:19 WBC RBC Hgb Hct MCV MCH MCHC RDW Std Deviation RDW Coeff of Юлия Plt Count MPV Immature Gran % (Auto) Neut % (Auto) Lymph % (Auto) Craven % (Auto) Eos % (Auto) Baso % (Auto) Absolute Neuts (auto) Absolute Lymphs (auto) Nucleated RBC % PT INR APTT D-Dimer Quant (PE/DVT) Specimen Type ART Sample Site R RADIAL pH 7.17 L* Bicarbonate Actual 20.4 L POC Total CO2 22 Base Excess -8 L O2 Saturation 98 O2 % 100 ABG pCO2 55.9 H ABG pO2 125 H Dinh Test POS Respiration Rate 14 O2 Delivery Device Vent Vent Mode A-C Tidal Volume 450 POC PEEP 10 Blood Gas Notified Whom ED MD Blood Gas Notified Time 1800 Sodium Potassium Chloride Carbon Dioxide Anion Gap BUN Creatinine Estim Creat Clear Calc Est GFR (MDRD) Af Amer Est GFR (MDRD) Non-Af BUN/Creatinine Ratio Glucose Hemoglobin A1c Lactic Acid Calcium Magnesium Ferritin Total Bilirubin AST ALT Alkaline Phosphatase Lactate Dehydrogenase Troponin I C-React Prot Ext Range B-Natriuretic Peptide Total Protein Albumin Globulin Albumin/Globulin Ratio Procalcitonin 1.49 H Free T4 COVID-19 (JET) MRSA (PCR) Negative POC Glucose 02/19/20 02/19/20 02/19/20 17:45 14:55 14:55 WBC RBC Hgb Hct MCV MCH MCHC RDW Std Deviation RDW Coeff of Юлия Plt Count MPV Immature Gran % (Auto) Neut % (Auto) Lymph % (Auto) Craven % (Auto) Eos % (Auto) Baso % (Auto) Absolute Neuts (auto) Absolute Lymphs (auto) Nucleated RBC % PT INR APTT D-Dimer Quant (PE/DVT) Specimen Type Sample Site pH Bicarbonate Actual POC Total CO2 Base Excess O2 Saturation O2 % ABG pCO2 ABG pO2 Dinh Test Respiration Rate O2 Delivery Device Vent Mode Tidal Volume POC PEEP Blood Gas Notified Whom Blood Gas Notified Time Sodium Potassium Chloride Carbon Dioxide Anion Gap BUN Creatinine Estim Creat Clear Calc Est GFR (MDRD) Af Amer Est GFR (MDRD) Non-Af BUN/Creatinine Ratio Glucose Hemoglobin A1c Lactic Acid Calcium Magnesium 1.8 Ferritin 143 Total Bilirubin AST ALT Alkaline Phosphatase Lactate Dehydrogenase 314 H Troponin I C-React Prot Ext Range 41.20 H B-Natriuretic Peptide 1171.8 H Total Protein Albumin Globulin Albumin/Globulin Ratio Procalcitonin Free T4 0.96 COVID-19 (JET) Pending MRSA (PCR) POC Glucose 02/19/20 02/19/20 02/19/20 14:55 14:55 14:55 WBC 11.1 H RBC 3.49 L Hgb 10.5 L Hct 32.0 L MCV 91.7 MCH 30.1 MCHC 32.8 RDW Std Deviation 48.5 H RDW Coeff of Юлия 14.6 Plt Count 269 MPV 11.1 Immature Gran % (Auto) 0.500 Neut % (Auto) 77.3 H Lymph % (Auto) 13.6 L Craven % (Auto) 8.1 Eos % (Auto) 0.3 Baso % (Auto) 0.2 Absolute Neuts (auto) 8.6 H Absolute Lymphs (auto) 1.50 Nucleated RBC % 0 PT INR APTT D-Dimer Quant (PE/DVT) Specimen Type Sample Site pH Bicarbonate Actual POC Total CO2 Base Excess O2 Saturation O2 % ABG pCO2 ABG pO2 Dinh Test Respiration Rate O2 Delivery Device Vent Mode Tidal Volume POC PEEP Blood Gas Notified Whom Blood Gas Notified Time Sodium 138 Potassium 4.7 Chloride 108 H Carbon Dioxide 21.0 Anion Gap 9 BUN 48 H Creatinine 1.88 H Estim Creat Clear Calc 34.36 Est GFR (MDRD) Af Amer 46 L Est GFR (MDRD) Non-Af 38 L BUN/Creatinine Ratio 25.5 H Glucose 203 H Hemoglobin A1c Lactic Acid 1.0 Calcium 9.0 Magnesium Ferritin Total Bilirubin 0.40 AST 67 H ALT 87 H Alkaline Phosphatase 89 Lactate Dehydrogenase Troponin I 0.238 H C-React Prot Ext Range B-Natriuretic Peptide Total Protein 7.1 Albumin 3.2 Globulin 3.9 Albumin/Globulin Ratio 0.8 L Procalcitonin Free T4 COVID-19 (JET) MRSA (PCR) POC Glucose 02/19/20 02/19/20 02/19/20 14:53 14:53 00:35 WBC RBC Hgb Hct MCV MCH MCHC RDW Std Deviation RDW Coeff of Юлия Plt Count MPV Immature Gran % (Auto) Neut % (Auto) Lymph % (Auto) Craven % (Auto) Eos % (Auto) Baso % (Auto) Absolute Neuts (auto) Absolute Lymphs (auto) Nucleated RBC % PT 13.2 INR 1.1 APTT 32.9 D-Dimer Quant (PE/DVT) Specimen Type Sample Site pH Bicarbonate Actual POC Total CO2 Base Excess O2 Saturation O2 % ABG pCO2 ABG pO2 Dinh Test Respiration Rate O2 Delivery Device Vent Mode Tidal Volume POC PEEP Blood Gas Notified Whom Blood Gas Notified Time Sodium Potassium Chloride Carbon Dioxide Anion Gap BUN Creatinine Estim Creat Clear Calc Est GFR (MDRD) Af Amer Est GFR (MDRD) Non-Af BUN/Creatinine Ratio Glucose Hemoglobin A1c 7.4 H Lactic Acid Calcium Magnesium Ferritin Total Bilirubin AST ALT Alkaline Phosphatase Lactate Dehydrogenase Troponin I C-React Prot Ext Range B-Natriuretic Peptide Total Protein Albumin Globulin Albumin/Globulin Ratio Procalcitonin Free T4 COVID-19 (JET) MRSA (PCR) POC Glucose General: - - Intubated and sedated Lungs: - - Coarse Cardiovascular: Bradycardic Capillary Refill: <3 seconds Peripheral Pulses: Normal Skin Color: [place], - - cold extremities - Assessment/Plan Because of possible COVID will not give fluid bolus per septic shock protocol. On levophed. Titrate as needed. Add vasopressin if patient is requiring more than 15mcg/min. On Zosyn and azithromycin - Attestation Sepsis Attestation: Sepsis re-evaluation was performed
[2020-02-20 02:36] LABS: Bedside Glucose 188 mg/dL (70-110)
[2020-02-20] MEDS: Propofol 10MG/Ml 1,000 MG/100 ML Bottle 2.6 MG CONT INF (02:38)
[2020-02-20] MEDS: 0.9% Saline Lock 10 ML Syringe IV ×2 (03:49→20:51)
[2020-02-20 03:50] LABS: Absolute Lymphocyte Count 1.91 X10^3/uL (0.83-4.51); Absolute Neutrophil Count 9.7 X10^3/uL (2.0-7.7); Basophil# 0.02 X10^3/uL; Basophil% 0.2 % (0-1); Eosinophil# 0.01 X10^3/uL; Eosinophils% 0.1 % (0-5); Hematocrit 28.2 % (40-54); Hemoglobin 9.2 g/dL (13.0-16.5); Lymphocyte # 1.91 X10^3/ul (4.0); Lymphocyte % 14.6 % (19-41); Mean Corp Hgb Conc 32.6 g/dL (32-36); Mean Corpuscular Hgb 30.8 pg (27.0-32.0); Mean Corpuscular Volume 94.3 fL (80-94); Mean Platelet Vol. 10.5 fl (6.2-12.0); Monocyte% 10.7 % (0-10); NRBC Flagged by Analyzer 0 % (0-5); Neutrophil # 9.67 X10^3/uL (2.7-7.7); Neutrophil % 73.8 % (47-70); Platelet Count 274 K/mm3 (150-450); RBC Distribution Width CV 14.1 % (11.6-14.6); Red Blood Count 2.99 M/mm3 (4.6-6.2); White Blood Count 13.1 K/mm3 (4.4-11.0)
[2020-02-20] MEDS: fentaNYL drip 100 ML 7.5 MCG IV (04:02)
[2020-02-20 04:15] LABS: ALB/GLOB Ratio 0.8 RATIO (0.9-2.4); AST(SGOT) 39 U/L (15-37); Alanine Aminotransfer ALT/SGPT 65 U/L (16-61); Albumin, Serum 2.7 g/dL (3.2-5.0); Alkaline Phosphatase 73 U/L (45-117); Anion Gap 8 (5-15); BUN 54 mg/dL (7-18); BUN/Creat Ratio 20.3 RATIO (10-20); Calcium,Total 8.5 mg/dL (8.5-10.1); Chloride 109 mmol/L (98-107); Cholesterol 142 mg/dL (200); Creatinine, Serum 2.66 mg/dL (0.70-1.30); EST Glomerular Filtration Rate 25 mL/min (>60); Est Glom Filt Rate - Afr Amer 31 mL/min (>60); Estimated Creatinine Clearance 24.29 ml/min; Globulin 3.5 g/dL (2.2-4.2); Glucose 208 mg/dL (74-106); High Density Lipoprotein 38 mg/dL; Potassium 4.8 mmol/L (3.5-5.1); Protein, Total 6.2 g/dL (6.4-8.2); Sodium Level 137 mmol/L (136-145); Thyroid Stim Hormone (TSH) 3.59 uIU/mL (0.358-3.74); Triglycerides 97 mg/dL; Very Low Density Lipoprotein 19 mg/dL (5-40)
--- NOTE | 2020-02-20 04:50 | RAD_ITS ---
STUDY: X-RAY - ABDOMEN/PELVIS REASON FOR EXAM: Male, 74 years old. OG tube placement TECHNIQUE: Single AP view of the abdomen / pelvis. COMPARISON: None. FINDINGS: Normal visualized lung bases. An OG tube is seen stent is in the gastric lumen. There is an unremarkable bowel gas pattern. There is no demonstrated free abdominal air. The visualized liver, spleen and kidneys are grossly normal in size and morphology. Normal soft tissue structures. Normal visualized osseous structures. RAD/Abdomen Single View (Portable) IMPRESSION: An OG tube is seen stent is in the gastric lumen is in good position. Electronically Signed: Johnnie Vaughan, at 5:20 EDT Tel , Service support ,
[2020-02-20] MEDS: TITRATION PARAMETER CHANGE 1 EACH IV (05:19)
--- NOTE | 2020-02-20 05:55 | EKG12_ITS ---
Test Reason : AM EKG Blood Pressure : / mmHG Vent. Rate : 050 BPM Atrial Rate : 050 BPM P-R Int : 266 ms QRS Dur : 096 ms QT Int : 582 ms P-R-T Axes : 045 041 081 degrees QTc Int : 530 ms Sinus bradycardia with 1st degree A-V block T wave abnormality, consider anterior ischemia Prolonged QT Abnormal ECG Confirmed by JOSUE SOLANO, BRADLEY ([id number]), market editor KARY CASTRO ([id number] on 02/24/2020 9:42:59 AM Referred By: ELZA Confirmed By:BRADLEY SALAS MD
--- NOTE | 2020-02-20 06:25 | CON.PCM_ITS ---
Reason for Consult Date of Consultation: 02/20/20 Reason for Consultation: Acute combined respiratory failure History of Present Illness: The patient is a 74-year-old male, with a history as outlined below, who presented to the emergency department on February 18 with complaints of shortness of breath. History pertinent to the patient's hospitalization was obtained primarily via chart review, as the patient is currently intubated and there is no family available at the bedside. On presentation to the emergency department, the patient was initially noted to be afebrile and hemodynamically stable. He was maintaining appropriate oxygen saturations on room air. Laboratory evaluation revealed a mildly elevated white blood cell count of 11,000. Chemistry profile revealed an elevated creatinine to 1.8. AST and ALT were mildly increased. Troponin was elevated at 0.238. BNP was elevated to 1171. Procalcitonin was only elevated to 1.49. MRSA screen was negative. The initial plain film chest x-ray revealed findings that could have been suggestive of interstitial scarring in the lung bases with some blunting of the costophrenic angles. Over the next several hours, follow-up chest imaging revealed the interval development of some groundglass changes within the lung bases. There was initial concern for acute decompensated heart failure. The patient was placed on a nitro infusion and Lasix. The patient's supplemental oxygen requirement increased during his emergency department stay. He was quickly escalated to BiPAP and then subsequently intubated. The patient was placed on antimicrobials and admitted to the medical intensive care unit. Overnight, the patient became hypotensive, even after discontinuation of his nitro infusion. Therefore, a central venous catheter was placed and vasopressors were started. Past Medical History Past Medical History (Chronic Problems): Chronic Problems Hypertension (Chronic) Type 2 diabetes mellitus (Chronic) Allergies No Known Allergies Allergy (Verified 02/19/20 14:24) Home Medications: Ambulatory Orders Medication Instructions Recorded Allopurinol [Zyloprim] 300 mg PO DAILY 02/19/20 Alogliptin Benzoate [Alogliptin] 12.5 mg PO DAILY 02/19/20 Aspirin E.C. [Ecotrin] 81 mg PO DAILY@0800 02/19/20 Chlorthalidone 37.5 mg PO DAILY 02/19/20 Lisinopril 20 mg PO BID 02/19/20 Metoprolol Tartrate 50 mg PO BID 02/19/20 [place]-3 Fatty Acids/Fish Oil [Fish 1 cap PO DAILY 02/19/20 Oil 1,000 mg Capsule] glipiZIDE [Glucotrol] 10 mg PO DAILY 02/19/20 metFORMIN HCl [Glucophage] 500 mg PO BIDCM 02/19/20 Surgical History: noncontributory Lives: Alone Smoking Status: Heavy Smoker (>10/day) Tobacco Use: Cigarettes Alcohol: None Drugs: Marijuana - Occasional - *Family History Maternal History Items: - - No CAD Review of Systems Unable to obtain accurate/complete ROS d/t: Due to current intubation and mechanical ventilation status. Patient Problems: Active and Suspected Problems New onset of congestive heart failure (Acute) Elevated troponin I level (Acute) Respiratory failure with hypoxia (Acute) FREIDA (acute kidney injury) (Acute) Objective: The patient's most recent lab work, culture data and imaging studies have all been personally reviewed. Strep and urine Legionella antigens were negative. Respiratory viral panel was negative. Blood and sputum cultures are pending. COVID testing is pending. - Physical Exam Vitals/I&O's: Vital Signs Temp Pulse Resp BP Pulse Ox 98.5 F 51 L 16 103/45 L 94 02/20/20 06:00 02/20/20 06:00 02/20/20 06:00 02/20/20 06:00 02/20/20 06:00 Oxygen Flow Rate (L/min) 4 Oxygen Delivery Method Mechanical Ventilator Weight: 181 lb 7.047 oz Body Mass Index (BMI) 28.3 Intake and Output for Last 24 Hours 02/18/20 02/19/20 02/20/20 23:59 23:59 23:59 Intake Total 101.87 / 111.57 608.35 / 608.35 Output Total 475 / 475 Balance 101.87 / -288.43 133.35 / 133.35 General: - - Intubated, sedated and mechanically ventilated. No ventilator dyssynchrony. Plateau pressures are acceptable. HEENT: Atraumatic, PERRLA, Normocephalic Oral: No Gingival or Mucosal Lesions/ Ulcerations, - - Endotracheal and OG tubes in place Neck: Supple, No Nodes, Trachea Midline, - - Right IJ central venous catheter in place Lungs: No rhonchi, No wheeze, No rales, Diminished Cardiovascular: Regular rate, Regular Rhythm, Normal S1, Normal S2 Abdomen: Bowel Sounds Present, Soft, Non Tender Extremities: No clubbing, No cyanosis, Edema Skin: No breakdown Musculoskeletal: No Tenderness to Palpation of Joints or Extremities Lymphatic: No Cervical, Supraclavicular, or Inguinal Adenopathy Neurological: - - No focal neurological deficits. Although sedated, the patient can follow simple commands. Labs (Last 48 Hours) 02/19/20 02/19/20 02/19/20 00:35 14:53 14:53 WBC RBC Hgb Hct MCV MCH MCHC RDW Std Deviation RDW Coeff of Юлия Plt Count MPV Immature Gran % (Auto) Neut % (Auto) Lymph % (Auto) Nelson % (Auto) Eos % (Auto) Baso % (Auto) Absolute Neuts (auto) Absolute Lymphs (auto) Nucleated RBC % PT 13.2 INR 1.1 APTT 32.9 D-Dimer Quant (PE/DVT) Specimen Type Sample Site pH Bicarbonate Actual POC Total CO2 Base Excess O2 Saturation O2 % ABG pCO2 ABG pO2 Dinh Test Respiration Rate O2 Delivery Device Vent Mode Tidal Volume POC PEEP Blood Gas Notified Whom Blood Gas Notified Time Sodium Potassium Chloride Carbon Dioxide Anion Gap BUN Creatinine Estim Creat Clear Calc Est GFR (MDRD) Af Amer Est GFR (MDRD) Non-Af BUN/Creatinine Ratio Glucose Hemoglobin A1c 7.4 H Lactic Acid Calcium Magnesium Ferritin Total Bilirubin AST ALT Alkaline Phosphatase Lactate Dehydrogenase Troponin I C-React Prot Ext Range B-Natriuretic Peptide Total Protein Albumin Globulin Albumin/Globulin Ratio Triglycerides Cholesterol LDL Cholesterol VLDL Cholesterol HDL Cholesterol Procalcitonin TSH Free T4 COVID-19 (JET) MRSA (PCR) POC Glucose 02/19/20 02/19/20 02/19/20 14:55 14:55 14:55 WBC 11.1 H RBC 3.49 L Hgb 10.5 L Hct 32.0 L MCV 91.7 MCH 30.1 MCHC 32.8 RDW Std Deviation 48.5 H RDW Coeff of Юлия 14.6 Plt Count 269 MPV 11.1 Immature Gran % (Auto) 0.500 Neut % (Auto) 77.3 H Lymph % (Auto) 13.6 L Nelson % (Auto) 8.1 Eos % (Auto) 0.3 Baso % (Auto) 0.2 Absolute Neuts (auto) 8.6 H Absolute Lymphs (auto) 1.50 Nucleated RBC % 0 PT INR APTT D-Dimer Quant (PE/DVT) Specimen Type Sample Site pH Bicarbonate Actual POC Total CO2 Base Excess O2 Saturation O2 % ABG pCO2 ABG pO2 Dinh Test Respiration Rate O2 Delivery Device Vent Mode Tidal Volume POC PEEP Blood Gas Notified Whom Blood Gas Notified Time Sodium 138 Potassium 4.7 Chloride 108 H Carbon Dioxide 21.0 Anion Gap 9 BUN 48 H Creatinine 1.88 H Estim Creat Clear Calc 34.36 Est GFR (MDRD) Af Amer 46 L Est GFR (MDRD) Non-Af 38 L BUN/Creatinine Ratio 25.5 H Glucose 203 H Hemoglobin A1c Lactic Acid 1.0 Calcium 9.0 Magnesium Ferritin Total Bilirubin 0.40 AST 67 H ALT 87 H Alkaline Phosphatase 89 Lactate Dehydrogenase Troponin I 0.238 H C-React Prot Ext Range B-Natriuretic Peptide Total Protein 7.1 Albumin 3.2 Globulin 3.9 Albumin/Globulin Ratio 0.8 L Triglycerides Cholesterol LDL Cholesterol VLDL Cholesterol HDL Cholesterol Procalcitonin TSH Free T4 COVID-19 (JET) MRSA (PCR) POC Glucose 02/19/20 02/19/20 02/19/20 14:55 14:55 17:45 WBC RBC Hgb Hct MCV MCH MCHC RDW Std Deviation RDW Coeff of Юлия Plt Count MPV Immature Gran % (Auto) Neut % (Auto) Lymph % (Auto) Nelson % (Auto) Eos % (Auto) Baso % (Auto) Absolute Neuts (auto) Absolute Lymphs (auto) Nucleated RBC % PT INR APTT D-Dimer Quant (PE/DVT) Specimen Type Sample Site pH Bicarbonate Actual POC Total CO2 Base Excess O2 Saturation O2 % ABG pCO2 ABG pO2 Dinh Test Respiration Rate O2 Delivery Device Vent Mode Tidal Volume POC PEEP Blood Gas Notified Whom Blood Gas Notified Time Sodium Potassium Chloride Carbon Dioxide Anion Gap BUN Creatinine Estim Creat Clear Calc Est GFR (MDRD) Af Amer Est GFR (MDRD) Non-Af BUN/Creatinine Ratio Glucose Hemoglobin A1c Lactic Acid Calcium Magnesium 1.8 Ferritin 143 Total Bilirubin AST ALT Alkaline Phosphatase Lactate Dehydrogenase 314 H Troponin I C-React Prot Ext Range 41.20 H B-Natriuretic Peptide 1171.8 H Total Protein Albumin Globulin Albumin/Globulin Ratio Triglycerides Cholesterol LDL Cholesterol VLDL Cholesterol HDL Cholesterol Procalcitonin TSH Free T4 0.96 COVID-19 (JET) Pending MRSA (PCR) POC Glucose 02/19/20 02/19/2002/18/20 18:19 19:00 19:15 WBC RBC Hgb Hct MCV MCH MCHC RDW Std Deviation RDW Coeff of Юлия Plt Count MPV Immature Gran % (Auto) Neut % (Auto) Lymph % (Auto) Nelson % (Auto) Eos % (Auto) Baso % (Auto) Absolute Neuts (auto) Absolute Lymphs (auto) Nucleated RBC % PT INR APTT D-Dimer Quant (PE/DVT) Specimen Type ART Sample Site R RADIAL pH 7.17 L* Bicarbonate Actual 20.4 L POC Total CO2 22 Base Excess -8 L O2 Saturation 98 O2 % 100 ABG pCO2 55.9 H ABG pO2 125 H Dinh Test POS Respiration Rate 14 O2 Delivery Device Vent Vent Mode A-C Tidal Volume 450 POC PEEP 10 Blood Gas Notified Whom ED Blood Gas Notified Time 1800 Sodium Potassium Chloride Carbon Dioxide Anion Gap BUN Creatinine Estim Creat Clear Calc Est GFR (MDRD) Af Amer Est GFR (MDRD) Non-Af BUN/Creatinine Ratio Glucose Hemoglobin A1c Lactic Acid Calcium Magnesium Ferritin Total Bilirubin AST ALT Alkaline Phosphatase Lactate Dehydrogenase Troponin I C-React Prot Ext Range B-Natriuretic Peptide Total Protein Albumin Globulin Albumin/Globulin Ratio Triglycerides Cholesterol LDL Cholesterol VLDL Cholesterol HDL Cholesterol Procalcitonin 1.49 H TSH Free T4 COVID-19 (JET) MRSA (PCR) Negative POC Glucose 02/19/20 02/19/20 02/19/20 19:15 20:00 20:05 WBC RBC Hgb Hct MCV MCH MCHC RDW Std Deviation RDW Coeff of Юлия Plt Count MPV Immature Gran % (Auto) Neut % (Auto) Lymph % (Auto) Nelson % (Auto) Eos % (Auto) Baso % (Auto) Absolute Neuts (auto) Absolute Lymphs (auto) Nucleated RBC % PT INR APTT D-Dimer Quant (PE/DVT) 2.75 H* Specimen Type ART Sample Site R RADIAL pH 7.23 L Bicarbonate Actual 18.5 L POC Total CO2 20 Base Excess -9 L O2 Saturation 97 O2 % 100 ABG pCO2 44.3 ABG pO2 112 H Dinh Test POS Respiration Rate 14 O2 Delivery Device Vent Vent Mode A-C Tidal Volume 450 POC PEEP 10 Blood Gas Notified Whom [facility] Blood Gas Notified Time 2010 Sodium Potassium Chloride Carbon Dioxide Anion Gap BUN Creatinine Estim Creat Clear Calc Est GFR (MDRD) Af Amer Est GFR (MDRD) Non-Af BUN/Creatinine Ratio Glucose Hemoglobin A1c Lactic Acid Calcium Magnesium Ferritin Total Bilirubin AST ALT Alkaline Phosphatase Lactate Dehydrogenase Troponin I 0.364 H C-React Prot Ext Range B-Natriuretic Peptide Total Protein Albumin Globulin Albumin/Globulin Ratio Triglycerides Cholesterol LDL Cholesterol VLDL Cholesterol HDL Cholesterol Procalcitonin TSH Free T4 COVID-19 (JET) MRSA (PCR) POC Glucose 02/19/20 02/19/20 02/20/20 20:09 21:20 00:35 WBC RBC Hgb Hct MCV MCH MCHC RDW Std Deviation RDW Coeff of Юлия Plt Count MPV Immature Gran % (Auto) Neut % (Auto) Lymph % (Auto) Nelson % (Auto) Eos % (Auto) Baso % (Auto) Absolute Neuts (auto) Absolute Lymphs (auto) Nucleated RBC % PT INR APTT 114.2 H* D-Dimer Quant (PE/DVT) Specimen Type Sample Site pH Bicarbonate Actual POC Total CO2 Base Excess O2 Saturation O2 % ABG pCO2 ABG pO2 Dinh Test Respiration Rate O2 Delivery Device Vent Mode Tidal Volume POC PEEP Blood Gas Notified Whom Blood Gas Notified Time Sodium Potassium Chloride Carbon Dioxide Anion Gap BUN Creatinine Estim Creat Clear Calc Est GFR (MDRD) Af Amer Est GFR (MDRD) Non-Af BUN/Creatinine Ratio Glucose Hemoglobin A1c Lactic Acid Calcium Magnesium Ferritin Total Bilirubin AST ALT Alkaline Phosphatase Lactate Dehydrogenase Troponin I 0.441 H C-React Prot Ext Range B-Natriuretic Peptide Total Protein Albumin Globulin Albumin/Globulin Ratio Triglycerides Cholesterol LDL Cholesterol VLDL Cholesterol HDL Cholesterol Procalcitonin TSH Free T4 COVID-19 (JET) MRSA (PCR) POC Glucose 234 H 02/20/20 02/20/20 02/20/20 00:56 03:40 03:40 WBC 13.1 H RBC 2.99 L Hgb 9.2 L Hct 28.2 L MCV 94.3 H MCH 30.8 MCHC 32.6 RDW Std Deviation 48.0 H RDW Coeff of Юлия 14.1 Plt Count 274 MPV 10.5 Immature Gran % (Auto) 0.600 Neut % (Auto) 73.8 H Lymph % (Auto) 14.6 L Nelson % (Auto) 10.7 H Eos % (Auto) 0.1 Baso % (Auto) 0.2 Absolute Neuts (auto) 9.7 H Absolute Lymphs (auto) 1.91 Nucleated RBC % 0 PT INR APTT D-Dimer Quant (PE/DVT) Specimen Type Sample Site pH Bicarbonate Actual POC Total CO2 Base Excess O2 Saturation O2 % ABG pCO2 ABG pO2 Dinh Test Respiration Rate O2 Delivery Device Vent Mode Tidal Volume POC PEEP Blood Gas Notified Whom Blood Gas Notified Time Sodium 137 Potassium 4.8 Chloride 109 H Carbon Dioxide 20.0 L Anion Gap 8 BUN 54 H Creatinine 2.66 H Estim Creat Clear Calc 24.29 Est GFR (MDRD) Af Amer 31 L Est GFR (MDRD) Non-Af 25 L BUN/Creatinine Ratio 20.3 H Glucose 208 H Hemoglobin A1c Lactic Acid Calcium 8.5 Magnesium Ferritin Total Bilirubin 0.40 AST 39 H ALT 65 H Alkaline Phosphatase 73 Lactate Dehydrogenase Troponin I C-React Prot Ext Range B-Natriuretic Peptide Total Protein 6.2 L Albumin 2.7 L Globulin 3.5 Albumin/Globulin Ratio 0.8 L Triglycerides 97 Cholesterol 142 LDL Cholesterol 85 VLDL Cholesterol 19 HDL Cholesterol 38 L Procalcitonin TSH 3.59 Free T4 COVID-19 (JET) MRSA (PCR) POC Glucose 188 H Microbiology 02/19/20 17:45 Mucosa - Nasopharyngeal Respiratory Panel (PCR) - Final 02/19/20 19:08 Urine Catheter - Catheter Streptococcus pneumoniae Antigen (M - Final 02/19/20 19:08 Urine Catheter - Catheter Legionella Antigen - Final Clinical Impression(s) from Imaging Studies Chest X-Ray 02/19/20 15:22 IMPRESSION: Findings suggestive of scarring at the lung bases with superimposed bibasilar atelectasis and mild degree of CHF. Blunting of both costophrenic angles slightly worse on the right side. Electronically Signed: Rafael Camilo, at 15:37 EDT , Service support , Chest X-Ray 02/19/20 18:34 Chest X-Ray 02/20/20 00:44 IMPRESSION: Ill-defined subpleural groundglass opacities are seen more prominent in the lung bases , may represent atypical pneumonia or viral pneumonia (COVID-19 ?). Electronically Signed: Johnnie Vaughan, at 1:31 EDT Tel , Service support , KUB X-Ray 02/20/20 04:50 IMPRESSION: An OG tube is seen stent is in the gastric lumen is in good position. Electronically Signed: Johnnie Vaughan, at 5:20 EDT Tel , Service support , Current Medications Acetaminophen (Tylenol Liquid) 650 mg GT Q6H PRN PRN PRN Reason: Pain Score 1-10/Temp > 100.7 F Aspirin (Aspirin, Baby) 81 mg GT DAILY@0800 ALO Chlorhexidine Gluconate () 15 ml PO BID ALO Last Admin: 02/19/20 20:53 Dose: 15 ml Documented by: Dextrose (D50w Syringe) 0 gm IV X1 PRN; Protocol PRN Reason: Hypoglycemia Furosemide (Lasix) 40 mg IV BID@1000,1800 ALO Glucagon () 1 mg IM .X1 PRN PRN Reason: Hypoglycemia Heparin Sodium (Porcine) (Heparin Na) 0 unit IV UD PRN; Protocol Heparin Sodium/Dextrose () 25,000 units in 250 mls @ 12 mls/hr IV .[id number] ALO; Protocol Last Infusion: 02/20/20 03:35 Dose: 900 units/hr, 9 mls/hr Documented by: Propofol (Diprivan) 1,000 mg in 100 mls @ 4.938 mls/hr CONT INF .Q12H ALO; Protocol Last Admin: 02/20/20 06:02 Dose: Not Given Documented by: Piperacillin Sod/Tazobactam (Sod 3.375 gm/ Sodium Chloride) 50 mls @ 12.5 mls/hr IV Q8 ALO Last Admin: 02/20/20 05:20 Dose: 12.5 mls/hr Documented by: Fentanyl () 100 mls @ 5 mls/hr IV UD ALO; Protocol Last Titration: 02/20/20 06:00 Dose: 75 mcg/hr, 7.5 mls/hr Documented by: Sodium Chloride () 250 mls @ 15 mls/hr IV .[id number] PRN PRN Reason: Saline Flush Sodium Chloride () 250 mls @ 15 mls/hr IV .[id number] PRN PRN Reason: Additional IVPB Infusion Azithromycin 500 mg/ Dextrose 255 mls @ 250 mls/hr IV Q24H [facility] Last Infusion: 02/20/20 01:53 Dose: Infused Documented by: Norepinephrine Bitartrate 8 mg (/ Sodium Chloride) 250 mls @ 9.375 mls/hr CONT INF .[id number] [facility]; Protocol Last Titration: 02/20/20 06:00 Dose: 15 mcg/min, 28.1 mls/hr Documented by: Insulin Human Lispro (Humalog Kwikpen (Bkc)) 0 unit SC Q6 [facility]; Protocol Lansoprazole (Lansoprazole) 15 mg NG DAILY [facility] Metoprolol Tartrate (Lopressor (Beta Bismark)) 50 mg GT BID [facility] Last Admin: 02/19/20 22:02 Dose: Not Given Documented by: Nitroglycerin (Nitrostat) 0.4 mg SUBLINGUAL Q5M PRN PRN Reason: CARDIAC/CHEST PAIN Ondansetron HCl (Zofran) 4 mg IV Q8H PRN PRN PRN Reason: NAUSEA/VOMITING Sodium Chloride () 10 - 40 ml IV UD PRN PRN Reason: SALINE FLUSH Last Admin: 02/20/20 03:49 Dose: 40 ml Documented by: Assessment/Plan Active and Suspected Problems New onset of congestive heart failure (Acute) Elevated troponin I level (Acute) Respiratory failure with hypoxia (Acute) FREIDA (acute kidney injury) (Acute) RECOMMENDATIONS: 1. Broaden antimicrobials, while awaiting infectious work-up. 2. Discontinue IV Lasix. 3. Stop beta-bismark, given bradycardia. 4. Obtain echocardiogram. 5. COVID testing is pending. 6. Administer fluid bolus. 7. Wean Levophed to maintain a mean arterial pressure at or above 65 mmHg. 8. Start tube feeds today. 9. Wean FiO2 and PEEP to maintain oxygen saturations at or above 90%. IMPRESSIONS: 1. Acute combined respiratory failure Likely multifactorial with decompensated heart failure and/or pulmonary infecti ous etiologies contributing. The patient did require intubation. We will plan to continue current supportive measures and wean FiO2 and PEEP to maintain oxygen saturations at or above 90%. The patient will remain on broad-spectrum antimicrobials, pending infectious work-up. Unfortunately, given the patient's tenuous hemodynamics, aggressive diuresis cannot be undertaken. Awaiting echocardiogram. COVID testing is pending. Given elevated d-dimer and concerns for viral mediated thrombotic phenomenon, the patient was placed empirically on a heparin drip. 2. Multifactorial shock Most likely distributive versus hypovolemic in nature. Although, an echocardiogram is currently pending to evaluate the patient's underlying cardiac function. A component of his hypotension is also the consequence of the medication that is currently being utilized to sedate him while on the ventilator. For now, we will plan to continue vasopressor support in an attempt to maintain a mean arterial pressure at or above 65 mmHg. Infectious work-up is currently pending. Echocardiogram is pending. Given that the patient did receive IV Lasix yesterday, will give him back a small amount of supplemental IV fluid today. 3. Acute kidney injury Most likely prerenal in etiology and related to ischemic ATN in the setting of numbers 1 and 2. Plan to continue current supportive measures. Continue to monitor urine output. There is no current indication for renal replacement therapy. 4. Indeterminate cardiac enzymes/non-ST segment elevation TN Possibly related to demand ischemia in the setting of numbers 1 and 2. Awaiting echocardiogram. 5. Hypertension/hyperlipidemia/diabetes mellitus/anemia/GERD Complicates care, management, recovery and prognosis. Continue sliding scale insulin coverage. Hold antihypertensives. TIME: 45 minutes of critical care time, independent of procedures, was spent addressing the patient's acute combined respiratory failure, multifactorial shock, acute kidney injury, troponin elevation, review of all data and collaboration with the care team. ([id number]) [id number] Critical care first hour
[2020-02-20 06:41] LABS: Bedside Glucose 178 mg/dL (70-110)
--- NOTE | 2020-02-20 06:58 | PN_ITS ---
Patient Problems: Active and Suspected Problems New onset of congestive heart failure (Acute) Elevated troponin I level (Acute) Respiratory failure with hypoxia (Acute) FREIDA (acute kidney injury) (Acute) Subjective: Patient awake, intubated and able to follow commands, able to give signals to orientation questions and questions regarding how he is currently faring. Patient denies any ongoing dyspnea or any chest pain. He denies any arthralgias, abdominal cramping, nausea. He notes feeling improved since initial ED presentation. Discussed plan of care which included evaluation for COVID to which patient understands as he initially had been admitted for concern for acute decompensated CHF. Patient denies fevers, chills, nausea, emesis, abdominal pain, chest pain. Objective: Physical Examination: General: awake, alert, continued intubated status, able to answer orientation questions appropriately, giving appropriate hand gestures to questions, remains cooperative, seated upright in the ICU bed, wrist restraints in place. Skin: normal color, turgor, no icterus, cyanosis. HEENT: AT/NC, EOMI, PERRLA, dry MM, ET tube in place. Lungs: Diminished breath sounds bilaterally, intubated, no evidence of distress, no rales, ronchi or wheezing. Heart: Regular rate and rhythm; no gallop, rub audible. Abdomen: soft, NTTP, ND, normal BS. Extremities: no cyanosis, clubbing, mild bilateral pedal to distal culver nonpitting edema. Neurological: patient awake, alert, oriented as noted; cognitive function improving, likely mildly decreased still from baseline intact; pupils equally reactive to light and accomodation; cranial nerves grossly appear normal although limited given intubated status, moving extremities, strength severely global decrease given intubated status with restrictions. Psychiatric: affect appears fatigued otherwise normal, no acute evidence of depressive or anxiety feelings. Vitals/I&O's: Vital Signs Temp Pulse Resp BP Pulse Ox 98.5 F 54 L 18 103/45 L 92 02/20/20 06:00 02/20/20 06:33 02/20/20 06:33 02/20/20 06:00 02/20/20 06:33 Oxygen Flow Rate (L/min) 4 Oxygen Delivery Method Mechanical Ventilator Weight: 181 lb 7.047 oz Body Mass Index (BMI) 28.3 Intake and Output for Last 24 Hours 0402/19/20 02/20/20 23:59 23:59 23:59 Intake Total 101.87 / 111.57 633.17 / 633.17 Output Total 475 / 475 Balance 101.87 / -288.43 158.17 / 158.17 Microbiology Past 72 Hours 02/19/20 17:45 Mucosa - Nasopharyngeal Respiratory Panel (PCR) - Final 02/19/20 19:08 Urine Catheter - Catheter Streptococcus pneumoniae Antigen (M - Final 02/19/20 19:08 Urine Catheter - Catheter Legionella Antigen - Final Laboratory Results 02/19/20 00:35: Hemoglobin A1c 7.4 H 02/19/20 14:53: APTT 32.9 02/19/20 14:53: PT 13.2, INR 1.1 02/19/20 14:55: WBC 11.1 H, RBC 3.49 L, Hgb 10.5 L, Hct 32.0 L, MCV 91.7, MCH 30.1, MCHC 32.8, RDW Std Deviation 48.5 H, RDW Coeff of Юлия 14.6, Plt Count 269, MPV 11.1, Immature Gran % (Auto) 0.500, Neut % (Auto) 77.3 H, Lymph % (Auto) 13.6 L, [place] % (Auto) 8.1, Eos % (Auto) 0.3, Baso % (Auto) 0.2, Absolute Neuts (auto) 8.6 H, Absolute Lymphs (auto) 1.50, Nucleated RBC % 0 02/19/20 14:55: Sodium 138, Potassium 4.7, Chloride 108 H, Carbon Dioxide 21.0, Anion Gap 9, BUN 48 H, Creatinine 1.88 H, Estim Creat Clear Calc 34.36, Est GFR (MDRD) Af Amer 46 L, Est GFR (MDRD) Non-Af 38 L, BUN/Creatinine Ratio 25.5 H, Glucose 203 H, Calcium 9.0, Total Bilirubin 0.40, AST 67 H, ALT 87 H, Alkaline Phosphatase 89, Troponin I 0.238 H, Total Protein 7.1, Albumin 3.2, Globulin 3.9, Albumin/Globulin Ratio 0.8 L 02/19/20 14:55: Lactic Acid 1.0 02/19/20 14:55: B-Natriuretic Peptide 1171.8 H 02/19/20 14:55: Magnesium 1.8, Ferritin 143, Lactate Dehydrogenase 314 H, C- React Prot Ext Range 41.20 H, Free T4 0.96 02/19/20 17:45: COVID-19 (JET) Pending 02/19/20 18:19: Specimen Type ART, Sample Site R RADIAL, pH 7.17 L*, Bicarbonate Actual 20.4 L, POC Total CO2 22, Base Excess -8 L, O2 Saturation 98, O2 % 100, ABG pCO2 55.9 H, ABG pO2 125 H, Dinh Test POS, Respiration Rate 14, O2 Delivery Device Vent, Vent Mode A-C, Tidal Volume 450, POC PEEP 10, Blood Gas Notified Whom ED , Blood Gas Notified Time 1800 02/19/20 19:00: MRSA (PCR) Negative 02/19/20 19:15: Procalcitonin 1.49 H 02/19/20 19:15: D-Dimer Quant (PE/DVT) 2.75 H* 02/19/20 20:00: Troponin I 0.364 H 02/19/20 20:05: Specimen Type ART, Sample Site R RADIAL, pH 7.23 L, Bicarbonate Actual 18.5 L, POC Total CO2 20, Base Excess -9 L, O2 Saturation 97, O2 % 100, ABG pCO2 44.3, ABG pO2 112 H, Dinh Test POS, Respiration Rate 14, O2 Delivery Device Vent, Vent Mode A-C, Tidal Volume 450, POC PEEP 10, Blood Gas Notified Whom HOSP , Blood Gas Notified Time 201002/19/20 20:09: POC Glucose 234 H 02/19/20 21:20: Troponin I 0.441 H 02/20/20 00:35: APTT 114.2 H* 02/20/20 00:56: POC Glucose 188 H 02/20/20 03:40: Sodium 137, Potassium 4.8, Chloride 109 H, Carbon Dioxide 20.0 L , Anion Gap 8, BUN 54 H, Creatinine 2.66 H, Estim Creat Clear Calc 24.29, Est GFR (MDRD) Af Amer 31 L, Est GFR (MDRD) Non-Af 25 L, BUN/Creatinine Ratio 20.3 H , Glucose 208 H, Calcium 8.5, Total Bilirubin 0.40, AST 39 H, ALT 65 H, Alkaline Phosphatase 73, Total Protein 6.2 L, Albumin 2.7 L, Globulin 3.5, Albumin/Globulin Ratio 0.8 L, Triglycerides 97, Cholesterol 142, LDL Cholesterol 85, VLDL Cholesterol 19, HDL Cholesterol 38 L, TSH 3.59 02/20/20 03:40: WBC 13.1 H, RBC 2.99 L, Hgb 9.2 L, Hct 28.2 L, MCV 94.3 H, MCH 30.8, MCHC 32.6, RDW Std Deviation 48.0 H, RDW Coeff of Юлия 14.1, Plt Count 274, MPV 10.5, Immature Gran % (Auto) 0.600, Neut % (Auto) 73.8 H, Lymph % (Auto) 14.6 L, [place] % (Auto) 10.7 H, Eos % (Auto) 0.1, Baso % (Auto) 0.2, Absolute Neuts (auto) 9.7 H, Absolute Lymphs (auto) 1.91, Nucleated RBC % 0 02/20/20 05:02: POC Glucose 178 H Current Medications Acetaminophen (Tylenol Liquid) 650 mg GT Q6H PRN PRN PRN Reason: Pain Score 1-10/Temp > 100.7 F Aspirin (Aspirin, Baby) 81 mg GT DAILY@0800 [facility] Chlorhexidine Gluconate () 15 ml PO BID [facility] Last Admin: 02/19/20 20:53 Dose: 15 ml Documented by: Dextrose (D50w Syringe) 0 gm IV X1 PRN; Protocol PRN Reason: Hypoglycemia Glucagon () 1 mg IM .X1 PRN PRN Reason: Hypoglycemia Heparin Sodium (Porcine) (Heparin Na) 0 unit IV UD PRN; Protocol Heparin Sodium/Dextrose () 25,000 units in 250 mls @ 12 mls/hr IV .[id number] [facility]; Protocol Last Infusion: 02/20/20 03:35 Dose: 900 units/hr, 9 mls/hr Documented by: Propofol (Diprivan) 1,000 mg in 100 mls @ 4.938 mls/hr CONT INF .Q12H [facility]; Protocol Last Admin: 02/20/20 06:02 Dose: Not Given Documented by: Piperacillin Sod/Tazobactam (Sod 3.375 gm/ Sodium Chloride) 50 mls @ 12.5 mls/hr IV Q8 [facility] Last Admin: 02/20/20 05:20 Dose: 12.5 mls/hr Documented by: Fentanyl () 100 mls @ 5 mls/hr IV UD ALO; Protocol Last Titration: 02/20/20 06:00 Dose: 75 mcg/hr, 7.5 mls/hr Documented by: Sodium Chloride () 250 mls @ 15 mls/hr IV .[id number] PRN PRN Reason: Saline Flush Sodium Chloride () 250 mls @ 15 mls/hr IV .[id number] PRN PRN Reason: Additional IVPB Infusion Norepinephrine Bitartrate 8 mg (/ Sodium Chloride) 250 mls @ 9.375 mls/hr CONT INF .[id number] ALO; Protocol Last Admin: 02/20/20 06:53 Dose: 15 mcg/min, 28.1 mls/hr Documented by: Insulin Human Lispro (Humalog Kwikpen (Bkc)) 0 unit SC Q6 ALO; Protocol Last Admin: 02/20/20 06:25 Dose: 1 units Documented by: Lansoprazole (Lansoprazole) 15 mg NG DAILY [facility] Nitroglycerin (Nitrostat) 0.4 mg SUBLINGUAL Q5M PRN PRN Reason: CARDIAC/CHEST PAIN Ondansetron HCl (Zofran) 4 mg IV Q8H PRN PRN PRN Reason: NAUSEA/VOMITING Sodium Chloride () 10 - 40 ml IV UD PRN PRN Reason: SALINE FLUSH Last Admin: 02/20/20 03:49 Dose: 40 ml Documented by: STROKE Vital Signs/Narrative: Vital Signs Temp Pulse Resp BP Pulse Ox 02/20/20 06:33 54 L 18 92 02/20/20 06:00 98.5 F 51 L 16 103/45 L 94 02/20/20 05:04 98.6 F 52 L 20 H 102/54 L 93 02/20/20 04:10 50 L 17 97 02/20/20 04:00 50 L 17 102/48 L 98 02/20/20 03:28 51 L 02/20/20 03:15 51 L 108/45 L 02/20/20 03:00 52 L 15 107/46 L 97 Medical Necessity - Tobacco Use Smoking Status: Heavy Smoker (>10/day) Tobacco Use: Cigarettes Assessment/Plan All Active Problems New onset of congestive heart failure (Acute) Elevated troponin I level (Acute) Respiratory failure with hypoxia (Acute) FREIDA (acute kidney injury) (Acute) The patient is a 74 y/o M[facility] PMHx: HTN, HLD, Diabetes mellitus type II, Gout, Tobacco use who presents to the [facility] ED on 02/19/20 with history of progressively worsening dyspnea with occasional nonproductive cough, worse over the last 2 weeks and worse with exertion but more severe on day of ED presentation with no specific fever, chills, productive cough, myalgias, stomach discomfort, nausea or vomiting, diarrhea, loss or alteration to sense of taste or smell. 1. Acute Septic Shock versus Distributive Shock secondary to Acute Hypoxic Respiratory Failure secondary to Unclear Specific Etiology, Possibly Acute New Onset CHF Exacerbation of Unclear Type versus Acute Viral Syndrome, COVID-19: Transitioned from PCU admission to ICU admission, maintained in the COVID ICU unit, continued intubation status with initiation propofol and fentanyl, continue MDI inhaler PRN albuterol, maintained on IV Zosyn and Vancomycin w/ negative MRSA screen therefore 02/20/20 vanc d/c, HOB, IS parameters w/ pending sputum cultures, negative urine antigens, respiratory viral panel negative, pending COVID, pro calcitonin 1.49, LDH 314, CRP 41.20, ferritin 143. EKG with sinus rhythm with a first-degree AV block with no acute evidence of ischemia, trop 0.238 with trending as noted with now up to 0.441, requested echocardiogram, maintain on telemetry, continue supportive care including q 2 hour turning including prone given no prone bed availability, we administered IV Lasix therapy however given hypotension with necessity to start 02/19/2020 evening pressor therapy with hypotension discontinued. TSH and free T4 normal. Magnesium 1.8. Will continue to closely monitor for worsening status for ARDS and multiorgan failure, Bld cx x 2 obtained in the ED. Cardiology aware and discussed case, agree with current plan for care. Dr. Nelson, ICU consulted and aware. If cardiology is needed will formally consult as discussed with Dr. Nelson. Initiated on heparin drip in the ED given concerns for possible PE involvement as well as indeterminate cardiac enzymes which has been continued. 2. Indeterminate cardiac enzymes, possible early NSTEMI versus Myocarditis given acute presentation #1: ED evaluation with troponin 0.238, BNP 1171.8, ches t x-ray with findings suggestive of scarring at the lung bases with superimposed bibasilar atelectasis and mild degree of CHF with blunting of both costophrenic angles slightly worse on the right side, EKG with sinus rhythm with a first- degree AV block with no acute evidence of ischemia. Maintained on a monitored bed, continue serial cardiac enzymes with trending 0.238-->0.364-->0.441, magnesium level 1.8 on admission. Continued Heparin drip. Continue medical management w/ asa, holding BB, defer statin given mild LFT elevations and possible #1, pending ECHO. FLP with triglycerides 97, total cholesterol 142, LDL 85, VLDL 19, HDL 38. 3. FREIDA superimposed on possible CKD stage III: Admission BUN/Cr 48/1.88, baseline renal function unknown and patient's denies any notable renal history but unclear specific baseline, however more likely acute kidney injury on possible chronic kidney disease with repeat 02/20/2020 BUN/creatinine 54/2.66, continue to hold nephrotoxic regimen, initial IV Lasix given concern for possible CHF discontinued secondary to hypotension with pressor usage. 4. Hypertension: Holding patient hypertensive regimen as well as IV Lasix given worsening blood pressures with hypotension with pressor therapy usage. Resume once appropriate and normalized renal function. PRN hydralazine. 5. Hyperlipidemia: Not on regimen, FLP with triglycerides 97, total cholesterol 142, LDL 85, VLDL 19, HDL 38, temporarily hold fish oil, given elevated LFTs likely secondary to #1 defer addition. 6. Diabetes mellitus type II: Hold oral home regimen, HgbA1c 7.4%, TFs per ICU, accu checks w/ ISS every 6 hours while NPO. 7. Normocytic anemia, unclear if chronic: Admission CBC with hemoglobin 10.5, likely chronic but unclear, 02/20/2020 hemoglobin 9.2, will continue to trend. 8. GERD: Maintain on Protonix. 9. DVT prophylaxis: SCDs, continued heparin drip. 10. CODE STATUS: Full code. Inpatient E&M: 13364 Subs Hosp L3
[2020-02-20 08:18] LABS: Partial Thromboplast Time 46.3 Seconds (24.1-36.2)
--- NOTE | 2020-02-20 08:30 | NURSING ---
0820 Pt weaned to PEEP 5 from PEEP [address] Nelson. Sats remained stable, but patient dropped to 86-87% after approx [address] Nelson notified and PEEP titrated back to 8. Sats stabilized. [address] Nelson to clarify OG placement per CXR done this AM. Stated that OG appeared to be in the stomach with possible mild kink. This RN was unable to aspirate gastric contents, but flushes without difficulty. OK to leave in current position per Dr. Nelson and utilize for associate media planner and enteral feeding per Business [employer] Consultant recommendations.
[2020-02-20] MEDS: Lansoprazole 15 MG Capsule.DR NG (08:51)
[2020-02-20] MEDS: Lactated Ringers 1,000 ML 999 ML IV (08:52)
[2020-02-20] MEDS: Heparin Injection (Vial) 5,000 UNIT/ML VIAL IV ×2 (08:52→21:59)
[2020-02-20] MEDS: Aspirin 81 MG TAB.CHEW GT (08:53)
[2020-02-20] MEDS: Chlorhexidine 15 ML PO ×2 (08:53→20:51)
--- NOTE | 2020-02-20 10:06 | NT.THERAPY_ITS ---
Nutrition Therapy Report - History Nutrition Services has been consulted to:: Manage enteral nutrition Current diet / nutrition support order:: none ordered - Anthropometric Measurements Height:: 5 ft 8.11 in Weight:: 82.3 kg Body Mass Index (BMI):: 27.5 - Relevant Labs Relevant Labs:: WBC 13.1 K/mm3 (4.4-11.0) H 02/20/20 03:40 RBC 2.99 M/mm3 (4.6-6.2) L 02/20/20 03:40 Hgb 9.2 g/dL (13.0-16.5) L 02/20/20 03:40 Hct 28.2 % (40-54) L 02/20/20 03:40 MCV 94.3 fL (80-94) H 02/20/20 03:40 RDW Std Deviation 48.0 fl (35.1-43.9) H 02/20/20 03:40 Neut % (Auto) 73.8 % (47-70) H 02/20/20 03:40 Lymph % (Auto) 14.6 % (19-41) L 02/20/20 03:40 [place] % (Auto) 10.7 % (0-10) H 02/20/20 03:40 Absolute Neuts (auto) 9.7 X10^3/uL (2.0-7.7) H 02/20/20 03:40 APTT 46.3 Seconds (24.1-36.2) H 02/20/20 07:35 D-Dimer Quant (PE/DVT) 2.75 FEU/ug/m (0.27-0.49) H* 02/19/20 19:15 Chloride 109 mmol/L (98-107) H 02/20/20 03:40 Carbon Dioxide 20.0 mmol/L (21.0-32.0) L 02/20/20 03:40 BUN 54 mg/dL (7-18) H 02/20/20 03:40 Creatinine 2.66 mg/dL (0.70-1.30) H 02/20/20 03:40 Est GFR (MDRD) Af Amer 31 mL/min (>60) L 02/20/20 03:40 Est GFR (MDRD) Non-Af 25 mL/min (>60) L 02/20/20 03:40 BUN/Creatinine Ratio 20.3 RATIO (10-20) H 02/20/20 03:40 Glucose 208 mg/dL (74-106) H 02/20/20 03:40 Hemoglobin A1c 7.4 % (4.2-6.3) H 02/19/20 00:35 AST 39 U/L (15-37) H 02/20/20 03:40 ALT 65 U/L (16-61) H 02/20/20 03:40 Lactate Dehydrogenase 314 U/L (87-241) H 02/19/20 14:55 Troponin I 0.441 ng/mL (<0.045) H 02/19/20 21:20 C-React Prot Ext Range 41.20 mg/L (0.0-3.0) H 02/19/20 14:55 B-Natriuretic Peptide 1171.8 pg/mL (0-100) H 02/19/20 14:55 Total Protein 6.2 g/dL (6.4-8.2) L 02/20/20 03:40 Albumin 2.7 g/dL (3.2-5.0) L 02/20/20 03:40 Albumin/Globulin Ratio 0.8 RATIO (0.9-2.4) L 02/20/20 03:40 HDL Cholesterol 38 mg/dL (40-) L 02/20/20 03:40 Procalcitonin 1.49 ng/mL (0.00-0.09) H 02/19/20 19:15 - Assessment Food / Nutrition-Related History:: Discussed in ICU rounds. Currently intubated, OG in place. In isolation precautions for suspected COVID-19. Pt was unable to answer admission nutrition screen questions. No wt hx per EMR. BLE 1+ pitting edema per nursing documentation. Per nigel Donaldson to start tube feeds today. - Nutrition Diagnosis Problem / Etiology / Signs & Symptoms (PES):: Inadequate oral intake related to intubation as evidenced by inability to consume oral diet. Evidence of Malnutrition Exists:: No - Nutrition Intervention Nutrition Prescription:: [id number] calories; 90-110 g protein/day - Food / Nutrient Delivery Interventions Summary of nutrition intervention:: Will order enteral nutrition. Nutrition support ordered as / adjusted to:: Vital AF 1.2 at goal rate of 65mL/hour w/ 100mL H2O flush every 4 hours to provide 1872 calories, 117 g protein, and 1865mL total fluid/day. Start tube feeds at 20mL/hour and increase by 10mL every 8 to 12 hours as pt tolerates until goal rate achieved. NPO diet order entered. Nutrition education provided?: No - MNT Monitoring Further MNT monitoring and evaluation required?: Yes MNT Follow-up in:: 1-2 days
--- NOTE | 2020-02-20 10:44 | CASEMGMT ---
RN Note: Pt remains on ventilator. Unable to participate in assessment at this time. Attempted call to patient's @ home. No answer, and no message machine with voice identifier. Will attempt again later. Sheree SIM RN ACM
[2020-02-20] MEDS: Vital AF 1.2 Cal Liquid 1,000 ML 65 ML GT (11:30)
[2020-02-20 12:16] LABS: Bedside Glucose 149 mg/dL (70-110)
[2020-02-20] MEDS: fentaNYL drip 100 ML 12.5 MCG IV ×2 (13:20→21:36)
--- NOTE | 2020-02-20 15:21 | CASEMGMT ---
RN CM assessment. Pt remains on ventilator 65% O2. not available so assessment deferred for now. Sheree BSN RN ACM
--- NOTE | 2020-02-20 15:31 | CASEMGMT ---
RN CM Assessment Note Presentation: New onset CHF, Resp failure with hypoxia. COVID test pending. Intubated, ventilator, ICU care. Intro role of CM and purpose of RN CM assessment to patient's via phone. Demographics, PCP and Pharmacy verified. Pharmacy added to chart. states pt stays mostly in basement and does not communicate medical status with his and daughter. states she overheard him talking to a nurse, that's how I found out he's been sick. and daughter are moving pt's bedroom back to main floor. States pt has been independent, not using DME. PCP: [facility] in [place]. Per , do NOT wish to transfer to [facility] at this time. Plan is to stay @ [facility] under MCR A benefit Specialists: Cardiology @ [facility] Preferred Pharmacy: [facility] Insurance: [facility] A; [place] Prescription Benef[place] yes through [place] LNO[place] : Living Arrangements: Lives in one story home with and daughter who helps take care of parents. states pt is generally independent with care needs. Transportation: drives DME: none, has walker, grab bars and shower chair at home -pt does not have oxygen or Cpap at home. If oxygen is needed, would need to get through [facility] as pt does not have [facility] part B benefits. HHC: none Patient DC goals: undetermined DC PLAN: undetermined.Questions answered for . She will call to ICU later tonight for update. Sheree SIM RN ACM
[2020-02-20 15:52] LABS: Partial Thromboplast Time 59.5 Seconds (24.1-36.2)
--- NOTE | 2020-02-20 16:00 | NURSING ---
Dr. Olson notified for crit lab value of elevated D-dimer. Clarified that physician did not need notified of elevated D-dimer as long as values are trending down.
[2020-02-20 19:11] LABS: Bedside Glucose 159 mg/dL (70-110)
[2020-02-20] MEDS: HEPARIN/D5w 25,000 UNITS 25,000 UNITS/250 ML IV.SOLN. 10 UNITS IV (20:48)
[2020-02-20 21:17] LABS: Partial Thromboplast Time 52.7 Seconds (24.1-36.2)
--- NOTE | 2020-02-20 22:11 | CPS ---
POST VENT. CHECK PATIENT WEANED TO .55%. PATIENTS NURSE AWARE.
--- NOTE | 2020-02-20 22:44 | CPS ---
POST VENT. ASSESSMENT, PATIENT WEANED TO .50%. PATIENTS NURSE AWARE.
[2020-02-21] VITALS (36 sets, daily range): BP systolic 112–161; BP diastolic 49–104; PULSE 61–116; RESP 13–20; TEMP 36.5–37.3; O2SAT 90–95
[2020-02-21] MEDS: Insulin Lispro 100 UNIT/ML INSULN.PEN SC ×5 (00:43→23:46)
[2020-02-21 01:41] LABS: Bedside Glucose 161 mg/dL (70-110)
[2020-02-21 04:10] LABS: Absolute Lymphocyte Count 1.21 X10^3/uL (0.83-4.51); Absolute Neutrophil Count 8.9 X10^3/uL (2.0-7.7); Basophil# 0.03 X10^3/uL; Basophil% 0.3 % (0-1); Eosinophil# 0.01 X10^3/uL; Eosinophils% 0.1 % (0-5); Hematocrit 28.2 % (40-54); Hemoglobin 9.3 g/dL (13.0-16.5); Lymphocyte # 1.21 X10^3/ul (4.0); Mean Corpuscular Hgb 31.3 pg (27.0-32.0); Mean Corpuscular Volume 94.9 fL (80-94); Mean Platelet Vol. 10.8 fl (6.2-12.0); Monocyte# 0.82 X10^3/uL; Monocyte% 7.5 % (0-10); NRBC Flagged by Analyzer 0 % (0-5); Neutrophil # 8.85 X10^3/uL (2.7-7.7); Neutrophil % 80.7 % (47-70); Platelet Count 228 K/mm3 (150-450); RBC Distribution Width CV 14.4 % (11.6-14.6); Red Blood Count 2.97 M/mm3 (4.6-6.2)
[2020-02-21 04:18] LABS: Partial Thromboplast Time 61.2 Seconds (24.1-36.2)
[2020-02-21 04:22] LABS: D-Dimer Quantitative (DVT/PE) 1.37 FEU/ug/m (0.27-0.49)
[2020-02-21 04:30] LABS: ALB/GLOB Ratio 0.7 RATIO (0.9-2.4); AST(SGOT) 25 U/L (15-37); Alanine Aminotransfer ALT/SGPT 53 U/L (16-61); Albumin, Serum 2.7 g/dL (3.2-5.0); Alkaline Phosphatase 67 U/L (45-117); Anion Gap 9 (5-15); BUN 58 mg/dL (7-18); BUN/Creat Ratio 19.8 RATIO (10-20); Chloride 108 mmol/L (98-107); Creatinine, Serum 2.93 mg/dL (0.70-1.30); EST Glomerular Filtration Rate 23 mL/min (>60); Est Glom Filt Rate - Afr Amer 27 mL/min (>60); Estimated Creatinine Clearance 22.05 ml/min; Glucose 168 mg/dL (74-106); Potassium 4.8 mmol/L (3.5-5.1); Protein, Total 6.7 g/dL (6.4-8.2); Sodium Level 138 mmol/L (136-145)
[2020-02-21 05:56] LABS: Bedside Glucose 160 mg/dL (70-110)
--- NOTE | 2020-02-21 06:09 | PCM.PN.INT ---
Subjective: The patient was seen and examined at the bedside this morning. Events from the last 24 hours have been reviewed. The patient is currently afebrile, hemodynamically stable and maintaining appropriate oxygen saturations on assist control mode of mechanical ventilation with an FiO2 requirement of 50% and PEEP of 8. COVID testing is still pending. The patient was able to be weaned off of Levophed completely around 2100 hrs. Nursing staff did report thick, creamy secretions from his endotracheal tube overnight. The patient is currently on fentanyl only for sedation and pain control. He has been tolerating tube feeds without issue. The patient did have a positive blood culture identified overnight. Objective: The patient's most recent lab work, culture data and imaging studies have all been personally reviewed. Surface echocardiogram revealed mild segmental systolic dysfunction with an ejection fraction of 50%. There was evidence of severe aortic stenosis. Strep and urine Legionella antigens were negative. Respiratory viral panel was negative. Preliminary sputum culture was positive for alphahemolytic Streptococcus. Blood culture dated February 18 was positive for gram-positive cocci. General: - - Remains intubated and mechanically ventilated. No dyssynchrony noted. HEENT: Atraumatic, PERRLA, Normocephalic Oral: Moist Mucosa, - - Endotracheal and OG tubes remain in place. Neck: Supple, No Nodes, Trachea Midline, - - Stable central venous catheter in place Lungs: No rhonchi, No wheeze, No rales, Diminished Cardiovascular: Regular rate, Regular Rhythm, Normal S1, Normal S2, Murmur Abdomen: Bowel Sounds Present, Soft, Non Tender Extremities: No clubbing, No cyanosis, Edema Skin: - - No significant change from previous Musculoskeletal: No Tenderness to Palpation of Joints or Extremities Lymphatic: No Cervical, Supraclavicular, or Inguinal Adenopathy Neurological: Neuro grossly intact Vital Signs Temp Pulse Resp BP Pulse Ox 97.7 F L 70 14 129/55 H 92 02/21/20 06:00 02/21/20 06:00 02/21/20 06:00 02/21/20 06:00 02/21/20 06:00 Oxygen Flow Rate (L/min) 4 Oxygen Delivery Method Mechanical Ventilator Weight: 185 lb 3.013 oz Body Mass Index (BMI) 27.5 Intake and Output for Last 24 Hours 02/19/20 02/20/20 02/21/20 23:59 23:59 23:59 Intake Total 101.87 / 111.57 2764.67 / 3197.17 1290.92 / 1290.92 Output Total 820 / 970 200 / 200 Balance 101.87 / -288.43 1944.67 / 2227.17 1090.92 / 1090.92 Labs (Last 48 Hours) 02/19/20 02/19/20 02/19/20 00:35 14:53 14:53 WBC RBC Hgb Hct MCV MCH MCHC RDW Std Deviation RDW Coeff of Юлия Plt Count MPV Immature Gran % (Auto) Neut % (Auto) Lymph % (Auto) [place] % (Auto) Eos % (Auto) Baso % (Auto) Absolute Neuts (auto) Absolute Lymphs (auto) Nucleated RBC % PT 13.2 INR 1.1 APTT 32.9 D-Dimer Quant (PE/DVT) Specimen Type Sample Site pH Bicarbonate Actual POC Total CO2 Base Excess O2 Saturation O2 % ABG pCO2 ABG pO2 Dinh Test Respiration Rate O2 Delivery Device Vent Mode Tidal Volume POC PEEP Blood Gas Notified Whom Blood Gas Notified Time Sodium Potassium Chloride Carbon Dioxide Anion Gap BUN Creatinine Estim Creat Clear Calc Est GFR (MDRD) Af Amer Est GFR (MDRD) Non-Af BUN/Creatinine Ratio Glucose Hemoglobin A1c 7.4 H Lactic Acid Calcium Magnesium Ferritin Total Bilirubin AST ALT Alkaline Phosphatase Lactate Dehydrogenase Troponin I C-React Prot Ext Range B-Natriuretic Peptide Total Protein Albumin Globulin Albumin/Globulin Ratio Triglycerides Cholesterol LDL Cholesterol VLDL Cholesterol HDL Cholesterol Procalcitonin TSH Free T4 COVID-19 (JET) MRSA (PCR) POC Glucose 02/19/20 02/19/20 02/19/20 14:55 14:55 14:55 WBC 11.1 H RBC 3.49 L Hgb 10.5 L Hct 32.0 L MCV 91.7 MCH 30.1 MCHC 32.8 RDW Std Deviation 48.5 H RDW Coeff of Юлия 14.6 Plt Count 269 MPV 11.1 Immature Gran % (Auto) 0.500 Neut % (Auto) 77.3 H Lymph % (Auto) 13.6 L [place] % (Auto) 8.1 Eos % (Auto) 0.3 Baso % (Auto) 0.2 Absolute Neuts (auto) 8.6 H Absolute Lymphs (auto) 1.50 Nucleated RBC % 0 PT INR APTT D-Dimer Quant (PE/DVT) Specimen Type Sample Site pH Bicarbonate Actual POC Total CO2 Base Excess O2 Saturation O2 % ABG pCO2 ABG pO2 Dinh Test Respiration Rate O2 Delivery Device Vent Mode Tidal Volume POC PEEP Blood Gas Notified Whom Blood Gas Notified Time Sodium 138 Potassium 4.7 Chloride 108 H Carbon Dioxide 21.0 Anion Gap 9 BUN 48 H Creatinine 1.88 H Estim Creat Clear Calc 34.36 Est GFR (MDRD) Af Amer 46 L Est GFR (MDRD) Non-Af 38 L BUN/Creatinine Ratio 25.5 H Glucose 203 H Hemoglobin A1c Lactic Acid 1.0 Calcium 9.0 Magnesium Ferritin Total Bilirubin 0.40 AST 67 H ALT 87 H Alkaline Phosphatase 89 Lactate Dehydrogenase Troponin I 0.238 H C-React Prot Ext Range B-Natriuretic Peptide Total Protein 7.1 Albumin 3.2 Globulin 3.9 Albumin/Globulin Ratio 0.8 L Triglycerides Cholesterol LDL Cholesterol VLDL Cholesterol HDL Cholesterol Procalcitonin TSH Free T4 COVID-19 (JET) MRSA (PCR) POC Glucose 02/19/20 02/19/20 02/19/20 14:55 14:55 17:45 WBC RBC Hgb Hct MCV MCH MCHC RDW Std Deviation RDW Coeff of [place] Plt Count MPV Immature Gran % (Auto) Neut % (Auto) Lymph % (Auto) [place] % (Auto) Eos % (Auto) Baso % (Auto) Absolute Neuts (auto) Absolute Lymphs (auto) Nucleated RBC % PT INR APTT D-Dimer Quant (PE/DVT) Specimen Type Sample Site pH Bicarbonate Actual POC Total CO2 Base Excess O2 Saturation O2 % ABG pCO2 ABG pO2 Dinh Test Respiration Rate O2 Delivery Device Vent Mode Tidal Volume POC PEEP Blood Gas Notified Whom Blood Gas Notified Time Sodium Potassium Chloride Carbon Dioxide Anion Gap BUN Creatinine Estim Creat Clear Calc Est GFR (MDRD) Af Amer Est GFR (MDRD) Non-Af BUN/Creatinine Ratio Glucose Hemoglobin A1c Lactic Acid Calcium Magnesium 1.8 Ferritin 143 Total Bilirubin AST ALT Alkaline Phosphatase Lactate Dehydrogenase 314 H Troponin I C-React Prot Ext Range 41.20 H B-Natriuretic Peptide 1171.8 H Total Protein Albumin Globulin Albumin/Globulin Ratio Triglycerides Cholesterol LDL Cholesterol VLDL Cholesterol HDL Cholesterol Procalcitonin TSH Free T4 0.96 COVID-19 (JET) Pending MRSA (PCR) POC Glucose 02/19/20 02/19/20 02/19/20 18:19 19:00 19:15 WBC RBC Hgb Hct MCV MCH MCHC RDW Std Deviation RDW Coeff of [place] Plt Count MPV Immature Gran % (Auto) Neut % (Auto) Lymph % (Auto) [place] % (Auto) Eos % (Auto) Baso % (Auto) Absolute Neuts (auto) Absolute Lymphs (auto) Nucleated RBC % PT INR APTT D-Dimer Quant (PE/DVT) Specimen Type ART Sample Site R RADIAL pH 7.17 L* Bicarbonate Actual 20.4 L POC Total CO2 22 Base Excess -8 L O2 Saturation 98 O2 % 100 ABG pCO2 55.9 H ABG pO2 125 H Dinh Test POS Respiration Rate 14 O2 Delivery Device Vent Vent Mode A-C Tidal Volume 450 POC PEEP 10 Blood Gas Notified Whom ED Blood Gas Notified Time 1800 Sodium Potassium Chloride Carbon Dioxide Anion Gap BUN Creatinine Estim Creat Clear Calc Est GFR (MDRD) Af Amer Est GFR (MDRD) Non-Af BUN/Creatinine Ratio Glucose Hemoglobin A1c Lactic Acid Calcium Magnesium Ferritin Total Bilirubin AST ALT Alkaline Phosphatase Lactate Dehydrogenase Troponin I C-React Prot Ext Range B-Natriuretic Peptide Total Protein Albumin Globulin Albumin/Globulin Ratio Triglycerides Cholesterol LDL Cholesterol VLDL Cholesterol HDL Cholesterol Procalcitonin 1.49 H TSH Free T4 COVID-19 (JET) MRSA (PCR) Negative POC Glucose 02/19/20 02/19/20 02/19/20 19:15 20:00 20:05 WBC RBC Hgb Hct MCV MCH MCHC RDW Std Deviation RDW Coeff of [place] Plt Count MPV Immature Gran % (Auto) Neut % (Auto) Lymph % (Auto) [place] % (Auto) Eos % (Auto) Baso % (Auto) Absolute Neuts (auto) Absolute Lymphs (auto) Nucleated RBC % PT INR APTT D-Dimer Quant (PE/DVT) 2.75 H* Specimen Type ART Sample Site R RADIAL pH 7.23 L Bicarbonate Actual 18.5 L POC Total CO2 20 Base Excess -9 L O2 Saturation 97 O2 % 100 ABG pCO2 44.3 ABG pO2 112 H Dinh Test POS Respiration Rate 14 O2 Delivery Device Vent Vent Mode A-C Tidal Volume 450 POC PEEP 10 Blood Gas Notified Whom [facility] Blood Gas Notified Time 2011 Sodium Potassium Chloride Carbon Dioxide Anion Gap BUN Creatinine Estim Creat Clear Calc Est GFR (MDRD) Af Amer Est GFR (MDRD) Non-Af BUN/Creatinine Ratio Glucose Hemoglobin A1c Lactic Acid Calcium Magnesium Ferritin Total Bilirubin AST ALT Alkaline Phosphatase Lactate Dehydrogenase Troponin I 0.364 H C-React Prot Ext Range B-Natriuretic Peptide Total Protein Albumin Globulin Albumin/Globulin Ratio Triglycerides Cholesterol LDL Cholesterol VLDL Cholesterol HDL Cholesterol Procalcitonin TSH Free T4 COVID-19 (JET) MRSA (PCR) POC Glucose 02/19/20 02/19/20 02/20/20 20:09 21:20 00:35 WBC RBC Hgb Hct MCV MCH MCHC RDW Std Deviation RDW Coeff of [place] Plt Count MPV Immature Gran % (Auto) Neut % (Auto) Lymph % (Auto) [place] % (Auto) Eos % (Auto) Baso % (Auto) Absolute Neuts (auto) Absolute Lymphs (auto) Nucleated RBC % PT INR APTT 114.2 H* D-Dimer Quant (PE/DVT) Specimen Type Sample Site pH Bicarbonate Actual POC Total CO2 Base Excess O2 Saturation O2 % ABG pCO2 ABG pO2 Dinh Test Respiration Rate O2 Delivery Device Vent Mode Tidal Volume POC PEEP Blood Gas Notified Whom Blood Gas Notified Time Sodium Potassium Chloride Carbon Dioxide Anion Gap BUN Creatinine Estim Creat Clear Calc Est GFR (MDRD) Af Amer Est GFR (MDRD) Non-Af BUN/Creatinine Ratio Glucose Hemoglobin A1c Lactic Acid Calcium Magnesium Ferritin Total Bilirubin AST ALT Alkaline Phosphatase Lactate Dehydrogenase Troponin I 0.441 H C-React Prot Ext Range B-Natriuretic Peptide Total Protein Albumin Globulin Albumin/Globulin Ratio Triglycerides Cholesterol LDL Cholesterol VLDL Cholesterol HDL Cholesterol Procalcitonin TSH Free T4 COVID-19 (JET) MRSA (PCR) POC Glucose 234 H 02/20/20 02/20/20 02/20/20 00:56 03:40 03:40 WBC 13.1 H RBC 2.99 L Hgb 9.2 L Hct 28.2 L MCV 94.3 H MCH 30.8 MCHC 32.6 RDW Std Deviation 48.0 H RDW Coeff of Юлия 14.1 Plt Count 274 MPV 10.5 Immature Gran % (Auto) 0.600 Neut % (Auto) 73.8 H Lymph % (Auto) 14.6 L [place] % (Auto) 10.7 H Eos % (Auto) 0.1 Baso % (Auto) 0.2 Absolute Neuts (auto) 9.7 H Absolute Lymphs (auto) 1.91 Nucleated RBC % 0 PT INR APTT D-Dimer Quant (PE/DVT) Specimen Type Sample Site pH Bicarbonate Actual POC Total CO2 Base Excess O2 Saturation O2 % ABG pCO2 ABG pO2 Dinh Test Respiration Rate O2 Delivery Device Vent Mode Tidal Volume POC PEEP Blood Gas Notified Whom Blood Gas Notified Time Sodium 137 Potassium 4.8 Chloride 109 H Carbon Dioxide 20.0 L Anion Gap 8 BUN 54 H Creatinine 2.66 H Estim Creat Clear Calc 24.29 Est GFR (MDRD) Af Amer 31 L Est GFR (MDRD) Non-Af 25 L BUN/Creatinine Ratio 20.3 H Glucose 208 H Hemoglobin A1c Lactic Acid Calcium 8.5 Magnesium Ferritin Total Bilirubin 0.40 AST 39 H ALT 65 H Alkaline Phosphatase 73 Lactate Dehydrogenase Troponin I C-React Prot Ext Range B-Natriuretic Peptide Total Protein 6.2 L Albumin 2.7 L Globulin 3.5 Albumin/Globulin Ratio 0.8 L Triglycerides 97 Cholesterol 142 LDL Cholesterol 85 VLDL Cholesterol 19 HDL Cholesterol 38 L Procalcitonin TSH 3.59 Free T4 COVID-19 (JET) MRSA (PCR) POC Glucose 188 H 02/20/20 02/20/20 02/20/20 05:02 07:35 11:24 WBC RBC Hgb Hct MCV MCH MCHC RDW Std Deviation RDW Coeff of [place] Plt Count MPV Immature Gran % (Auto) Neut % (Auto) Lymph % (Auto) [place] % (Auto) Eos % (Auto) Baso % (Auto) Absolute Neuts (auto) Absolute Lymphs (auto) Nucleated RBC % PT INR APTT 46.3 H D-Dimer Quant (PE/DVT) Cancelled Specimen Type Sample Site pH Bicarbonate Actual POC Total CO2 Base Excess O2 Saturation O2 % ABG pCO2 ABG pO2 Dinh Test Respiration Rate O2 Delivery Device Vent Mode Tidal Volume POC PEEP Blood Gas Notified Whom Blood Gas Notified Time Sodium Potassium Chloride Carbon Dioxide Anion Gap BUN Creatinine Estim Creat Clear Calc Est GFR (MDRD) Af Amer Est GFR (MDRD) Non-Af BUN/Creatinine Ratio Glucose Hemoglobin A1c Lactic Acid Calcium Magnesium Ferritin Total Bilirubin AST ALT Alkaline Phosphatase Lactate Dehydrogenase Troponin I C-React Prot Ext Range B-Natriuretic Peptide Total Protein Albumin Globulin Albumin/Globulin Ratio Triglycerides Cholesterol LDL Cholesterol VLDL Cholesterol HDL Cholesterol Procalcitonin TSH Free T4 COVID-19 (JET) MRSA (PCR) POC Glucose 178 H 149 H 02/20/20 02/20/20 02/20/20 15:00 18:54 20:50 WBC RBC Hgb Hct MCV MCH MCHC RDW Std Deviation RDW Coeff of [place] Plt Count MPV Immature Gran % (Auto) Neut % (Auto) Lymph % (Auto) [place] % (Auto) Eos % (Auto) Baso % (Auto) Absolute Neuts (auto) Absolute Lymphs (auto) Nucleated RBC % PT INR APTT 59.5 H 52.7 H D-Dimer Quant (PE/DVT) Cancelled Cancelled Specimen Type Sample Site pH Bicarbonate Actual POC Total CO2 Base Excess O2 Saturation O2 % ABG pCO2 ABG pO2 Dinh Test Respiration Rate O2 Delivery Device Vent Mode Tidal Volume POC PEEP Blood Gas Notified Whom Blood Gas Notified Time Sodium Potassium Chloride Carbon Dioxide Anion Gap BUN Creatinine Estim Creat Clear Calc Est GFR (MDRD) Af Amer Est GFR (MDRD) Non-Af BUN/Creatinine Ratio Glucose Hemoglobin A1c Lactic Acid Calcium Magnesium Ferritin Total Bilirubin AST ALT Alkaline Phosphatase Lactate Dehydrogenase Troponin I C-React Prot Ext Range B-Natriuretic Peptide Total Protein Albumin Globulin Albumin/Globulin Ratio Triglycerides Cholesterol LDL Cholesterol VLDL Cholesterol HDL Cholesterol Procalcitonin TSH Free T4 COVID-19 (JET) MRSA (PCR) POC Glucose 159 H 02/21/20 02/21/20 02/21/20 00:39 04:00 04:00 WBC 11.0 RBC 2.97 L Hgb 9.3 L Hct 28.2 L MCV 94.9 H MCH 31.3 MCHC 33.0 RDW Std Deviation 49.0 H RDW Coeff of Юлия 14.4 Plt Count 228 MPV 10.8 Immature Gran % (Auto) 0.400 Neut % (Auto) 80.7 H Lymph % (Auto) 11.0 L [place] % (Auto) 7.5 Eos % (Auto) 0.1 Baso % (Auto) 0.3 Absolute Neuts (auto) 8.9 H Absolute Lymphs (auto) 1.21 Nucleated RBC % 0 PT INR APTT D-Dimer Quant (PE/DVT) Specimen Type Sample Site pH Bicarbonate Actual POC Total CO2 Base Excess O2 Saturation O2 % ABG pCO2 ABG pO2 Dinh Test Respiration Rate O2 Delivery Device Vent Mode Tidal Volume POC PEEP Blood Gas Notified Whom Blood Gas Notified Time Sodium 138 Potassium 4.8 Chloride 108 H Carbon Dioxide 21.0 Anion Gap 9 BUN 58 H Creatinine 2.93 H Estim Creat Clear Calc 22.05 Est GFR (MDRD) Af Amer 27 L Est GFR (MDRD) Non-Af 23 L BUN/Creatinine Ratio 19.8 Glucose 168 H Hemoglobin A1c Lactic Acid Calcium 9.0 Magnesium Ferritin Total Bilirubin 0.40 AST 25 ALT 53 Alkaline Phosphatase 67 Lactate Dehydrogenase Troponin I C-React Prot Ext Range B-Natriuretic Peptide Total Protein 6.7 Albumin 2.7 L Globulin 4.0 Albumin/Globulin Ratio 0.7 L Triglycerides Cholesterol LDL Cholesterol VLDL Cholesterol HDL Cholesterol Procalcitonin TSH Free T4 COVID-19 (JET) MRSA (PCR) POC Glucose 161 H 02/21/20 02/21/20 02/21/20 04:00 04:00 05:38 WBC RBC Hgb Hct MCV MCH MCHC RDW Std Deviation RDW Coeff of [place] Plt Count MPV Immature Gran % (Auto) Neut % (Auto) Lymph % (Auto) [place] % (Auto) Eos % (Auto) Baso % (Auto) Absolute Neuts (auto) Absolute Lymphs (auto) Nucleated RBC % PT INR APTT 61.2 H D-Dimer Quant (PE/DVT) Cancelled 1.37 H* Specimen Type Sample Site pH Bicarbonate Actual POC Total CO2 Base Excess O2 Saturation O2 % ABG pCO2 ABG pO2 Dinh Test Respiration Rate O2 Delivery Device Vent Mode Tidal Volume POC PEEP Blood Gas Notified Whom Blood Gas Notified Time Sodium Potassium Chloride Carbon Dioxide Anion Gap BUN Creatinine Estim Creat Clear Calc Est GFR (MDRD) Af Amer Est GFR (MDRD) Non-Af BUN/Creatinine Ratio Glucose Hemoglobin A1c Lactic Acid Calcium Magnesium Ferritin Total Bilirubin AST ALT Alkaline Phosphatase Lactate Dehydrogenase Troponin I C-React Prot Ext Range B-Natriuretic Peptide Total Protein Albumin Globulin Albumin/Globulin Ratio Triglycerides Cholesterol LDL Cholesterol VLDL Cholesterol HDL Cholesterol Procalcitonin TSH Free T4 COVID-19 (JET) MRSA (PCR) POC Glucose 160 H Microbiology 02/19/20 19:15 Blood Culture (Wb) - Anticubital Left Blood Culture - Preliminary 02/19/20 22:55 Sputum, Induced/Lukens Gram Stain - Final 02/19/20 22:55 Sputum, Induced/Lukens Respiratory Culture - Preliminary Alpha Hemolytic Streptococcus 02/19/20 17:45 Mucosa - Nasopharyngeal Respiratory Panel (PCR) - Final 02/19/20 19:08 Urine Catheter - Catheter Streptococcus pneumoniae Antigen (M - Final 02/19/20 19:08 Urine Catheter - Catheter Legionella Antigen - Final Clinical Impression(s) from Imaging Studies Chest X-Ray 02/19/20 15:22 IMPRESSION: Findings suggestive of scarring at the lung bases with superimposed bibasilar atelectasis and mild degree of CHF. Blunting of both costophrenic angles slightly worse on the right side. Electronically Signed: Rafael Ton, at 15:37 EDT , Service support , Chest X-Ray 02/19/20 18:34 Chest X-Ray 02/20/20 00:44 IMPRESSION: Ill-defined subpleural groundglass opacities are seen more prominent in the lung bases , may represent atypical pneumonia or viral pneumonia (COVID-19 ?). Electronically Signed: Johnnie Vaughan, at 1:31 EDT Tel , Service support , KUB X-Ray 02/20/20 04:50 IMPRESSION: An OG tube is seen stent is in the gastric lumen is in good position. Electronically Signed: Johnnie Vaughan, at 5:20 EDT Tel , Service support , Medical Necessity - Tobacco Use Smoking Status: Heavy Smoker (>10/day) Tobacco Use: Cigarettes Assessment/Plan All Active Problems New onset of congestive heart failure (Acute) Elevated troponin I level (Acute) Respiratory failure with hypoxia (Acute) FREIDA (acute kidney injury) (Acute) RECOMMENDATIONS: 1. Continue broad-spectrum antimicrobial coverage, pending infectious work-up. 2. Obtain repeat blood cultures. 3. Await COVID test results. 4. Continue tube feeds. 5. Continue empiric heparin infusion. 6. Continue bronchodilators. 7. Wean FiO2 and PEEP to maintain oxygen saturations at or above 90%. 8. Continue appropriate ICU prophylaxis. IMPRESSIONS: 1. Acute combined respiratory failure Likely multifactorial with decompensated heart failure and/or pulmonary infectious etiologies contributing. The patient did require intubation. We will plan to continue current supportive measures and wean FiO2 and PEEP to maintain oxygen saturations at or above 90%. The patient will remain on broad-spectrum antimicrobials, pending infectious work-up. COVID testing is pending. Given elevated d-dimer and concerns for viral mediated thrombotic phenomenon, the patient will be continued empirically on a heparin drip. 2. Septic shock Most likely distributive (Septic) in nature. A component of his hypotension is also the consequence of the medication that was being utilized to sedate him while on the ventilator. The patient has since defervesced and has been weaned from vasopressor support. He is currently hemodynamically stable. Plan to continue current supportive measures along with broad-spectrum antimicrobials, pending finalized infectious work-up. 3. Acute kidney injury Most likely prerenal in etiology and related to ischemic ATN in the setting of numbers 1 and 2. Plan to continue current supportive measures. Continue to monitor urine output. There is no current indication for renal replacement therapy. 4. Indeterminate cardiac enzymes/non-ST segment elevation UT/heart failure with preserved ejection fraction/aortic stenosis Most likely related to demand ischemia in the setting of numbers 1 and 2. 5. Hypertension/hyperlipidemia/diabetes mellitus/anemia/GERD Complicates care, management, recovery and prognosis. Continue sliding scale insulin coverage. Physical therapy evaluation, once medically stabilized. TIME: 38 minutes of critical care time, independent of procedures, was spent addressing the patient's acute combined respiratory failure, multifactorial shock, acute kidney injury, troponin elevation, review of all data and collaboration with the care team. ([id number]) [phone] [id number] Critical care first hour
[2020-02-21] MEDS: fentaNYL drip 100 ML 10 MCG IV (06:42)
--- NOTE | 2020-02-21 06:52 | PCM.RX.CS ---
Consult Pharmacy has been consulted to manage selected antiobiotic: Vancomycin Type of Consult: New start Labs: Sodium 138 mmol/L (136-145) 02/21/20 04:00 Potassium 4.8 mmol/L (3.5-5.1) 02/21/20 04:00 Chloride 108 mmol/L (98-107) H 02/21/20 04:00 Carbon Dioxide 21.0 mmol/L (21.0-32.0) 02/21/20 04:00 Anion Gap 9 (5-15) 02/21/20 04:00 BUN 58 mg/dL (7-18) H 02/21/20 04:00 Creatinine 2.93 mg/dL (0.70-1.30) H 02/21/20 04:00 Est GFR (MDRD) Af Amer 27 mL/min (>60) L 02/21/20 04:00 Est GFR (MDRD) Non-Af 23 mL/min (>60) L 02/21/20 04:00 BUN/Creatinine Ratio 19.8 RATIO (10-20) 02/21/20 04:00 Glucose 168 mg/dL (74-106) H 02/21/20 04:00 Microbiology: Microbiology 02/19/20 19:15 Blood Culture (Wb) - Anticubital Left Blood Culture - Preliminary 02/19/20 22:55 Sputum, Induced/Lukens Gram Stain - Final 02/19/20 22:55 Sputum, Induced/Lukens Respiratory Culture - Preliminary Alpha Hemolytic Streptococcus 02/19/20 17:45 Mucosa - Nasopharyngeal Respiratory Panel (PCR) - Final 02/19/20 19:08 Urine Catheter - Catheter Streptococcus pneumoniae Antigen (M - Final 02/19/20 19:08 Urine Catheter - Catheter Legionella Antigen - Final Weight used for dosin kg Estimated Creatinine Clearance: 22.05 Goal Trough: 15-20 mcg/mL Pharmacy Plan for Drug Dosing: Pharmacy Service will continue to monitor and adjust dosing as required. Medications Vancomycin HCl 750 mg/ Sodium (Chloride) 265 mls @ 250 mls/hr IV Q12H ALO Discontinued Medications Vancomycin HCl 1,250 mg/ (Sodium Chloride) 275 mls @ 250 mls/hr IV X1 ONE Stop: 02/21/20 02:57 Last Admin: 02/21/20 03:17 Dose: Infused Documented by: Follow-Up Labs: Trough Vancomycin Labs to be done on [date and time ordered]: 02/21 @ 0332
--- NOTE | 2020-02-21 07:53 | PCM.PN.HOSP ---
Patient Problems: Active and Suspected Problems New onset of congestive heart failure (Acute) Elevated troponin I level (Acute) Respiratory failure with hypoxia (Acute) FREIDA (acute kidney injury) (Acute) Subjective: Patient with hand maneuvering and gesturing with no acute events overnight per self and also per nursing report. Patient oxygenation requirements have been stable. Patient has been weaned off of Levophed successfully. Patient tolerating intubation on minimal sedation not even requiring restraints. Patient maintained on tube feeds without issue concurrently. Patient overnight with 1 of 2 blood cultures with noted coag negative staph. Sputum preliminary noting alphahemolytic strep. Patient given blood culture findings placed back again on IV vancomycin with continuation of Zosyn. Patient denies fevers, chills, nausea, emesis, abdominal pain, chest pain. Objective: Physical Examination: General: awake, alert, continued intubated status, answering questions with hand signals, remains cooperative, seated upright in the ICU bed, wrist restraints currently off, minimally sedated and comfortable appearing. Skin: normal color, turgor, no icterus, cyanosis. HEENT: AT/NC, EOMI, PERRLA, improved less dry MM, ET tube in place, TF ongoing. Lungs: Diminished breath sounds bilaterally, intubated, no evidence of distress, no rales, ronchi or wheezing. Heart: Regular rate and rhythm; no gallop, rub audible. Abdomen: soft, NTTP, ND, normal BS. Extremities: no cyanosis, clubbing, minimal bilateral pedal nonpitting edema. Neurological: patient awake, alert, oriented as noted; cognitive function improved, suspect near baseline intact with currently minimal sedation; pupils equally reactive to light and accomodation; cranial nerves grossly appear normal although limited given intubated status, moving extremities, strength remains moderately to severely globally decrease given intubated status with restrictions. Psychiatric: affect appears less fatigued, normalizing, no acute evidence of depressive or anxiety feelings. Vitals/I&O's: Vital Signs Temp Pulse Resp BP Pulse Ox 97.7 F L 70 14 129/55 H 92 02/21/20 06:00 02/21/20 06:00 02/21/20 06:00 02/21/20 06:00 02/21/20 06:00 Oxygen Flow Rate (L/min) 4 Oxygen Delivery Method Mechanical Ventilator Weight: 185 lb 3.013 oz Body Mass Index (BMI) 27.5 Intake and Output for Last 24 Hours 02/19/20 02/20/20 02/21/20 23:59 23:59 23:59 Intake Total 101.87 / 111.57 2764.67 / 3197.17 1296.13 / 1296.13 Output Total 820 / 970 200 / 200 Balance 101.87 / -288.43 1944.67 / 2227.17 1096.13 / 1096.13 Microbiology Past 72 Hours 02/19/20 19:15 Blood Culture (Wb) - Anticubital Left Blood Culture - Preliminary 02/19/20 22:55 Sputum, Induced/Lukens Gram Stain - Final 02/19/20 22:55 Sputum, Induced/Lukens Respiratory Culture - Preliminary Alpha Hemolytic Streptococcus 02/19/20 17:45 Mucosa - Nasopharyngeal Respiratory Panel (PCR) - Final 02/19/20 19:08 Urine Catheter - Catheter Streptococcus pneumoniae Antigen (M - Final 02/19/20 19:08 Urine Catheter - Catheter Legionella Antigen - Final Laboratory Results 02/19/20 17:45: COVID-19 (JET) Pending 02/20/20 07:35: APTT 46.3 H, D-Dimer Quant (PE/DVT) Cancelled 02/20/20 11:24: POC Glucose 149 H 02/20/20 15:00: APTT 59.5 H, D-Dimer Quant (PE/DVT) Cancelled 02/20/20 18:54: POC Glucose 159 H 02/20/20 20:50: APTT 52.7 H, D-Dimer Quant (PE/DVT) Cancelled 02/21/20 00:39: POC Glucose 161 H 02/21/20 04:00: WBC 11.0, RBC 2.97 L, Hgb 9.3 L, Hct 28.2 L, MCV 94.9 H, MCH 31.3, MCHC 33.0, RDW Std Deviation 49.0 H, RDW Coeff of Юлия 14.4, Plt Count 228, MPV 10.8, Immature Gran % (Auto) 0.400, Neut % (Auto) 80.7 H, Lymph % (Auto) 11.0 L, [place] % (Auto) 7.5, Eos % (Auto) 0.1, Baso % (Auto) 0.3, Absolute Neuts (auto) 8.9 H, Absolute Lymphs (auto) 1.21, Nucleated RBC % 0 02/21/20 04:00: Sodium 138, Potassium 4.8, Chloride 108 H, Carbon Dioxide 21.0, Anion Gap 9, BUN 58 H, Creatinine 2.93 H, Estim Creat Clear Calc 22.05, Est GFR (MDRD) Af Amer 27 L, Est GFR (MDRD) Non-Af 23 L, BUN/Creatinine Ratio 19.8, Glucose 168 H, Calcium 9.0, Total Bilirubin 0.40, AST 25, ALT 53, Alkaline Phosphatase 67, Total Protein 6.7, Albumin 2.7 L, Globulin 4.0, Albumin/Globulin Ratio 0.7 L 02/21/20 04:00: D-Dimer Quant (PE/DVT) Cancelled 02/21/20 04:00: APTT 61.2 H, D-Dimer Quant (PE/DVT) 1.37 H* 02/21/20 05:38: POC Glucose 160 H Current Medications Acetaminophen (Tylenol Liquid) 650 mg GT Q6H PRN PRN PRN Reason: Pain Score 1-10/Temp > 100.7 F Aspirin (Aspirin, Baby) 81 mg GT 1000 [facility] Last Admin: 02/20/20 08:53 Dose: 81 mg Documented by: Chlorhexidine Gluconate () 15 ml PO BID [facility] Last Admin: 02/20/20 20:51 Dose: 15 ml Documented by: Dextrose (D50w Syringe) 0 gm IV X1 PRN; Protocol PRN Reason: Hypoglycemia Glucagon () 1 mg IM .X1 PRN PRN Reason: Hypoglycemia Heparin Sodium (Porcine) (Heparin Na) 0 unit IV UD PRN; Protocol Last Admin: 02/20/20 21:59 Dose: 1,000 unit Documented by: Heparin Sodium/Dextrose () 25,000 units in 250 mls @ 12 mls/hr IV .[id number] [facility]; Protocol Last Infusion: 02/21/20 06:00 Dose: 1,100 units/hr, 11 mls/hr Documented by: Piperacillin Sod/Tazobactam (Sod 3.375 gm/ Sodium Chloride) 50 mls @ 12.5 mls/hr IV Q8 [facility] Last Admin: 02/21/20 05:39 Dose: 12.5 mls/hr Documented by: Fentanyl () 100 mls @ 5 mls/hr IV UD [facility]; Protocol Last Admin: 02/21/20 06:42 Dose: 100 mcg/hr, 10 mls/hr Documented by: Sodium Chloride () 250 mls @ 15 mls/hr IV .[id number] PRN PRN Reason: Saline Flush Sodium Chloride () 250 mls @ 15 mls/hr IV .[id number] PRN PRN Reason: Additional IVPB Infusion Norepinephrine Bitartrate 8 mg (/ Sodium Chloride) 250 mls @ 9.375 mls/hr CONT INF .[id number] [facility]; Protocol Last Titration: 02/21/20 06:00 Dose: 0 mcg/min, 0 mls/hr Documented by: Enteral Nutritional Formula (Vital Af 1.2 Charly Liquid) 1,000 mls @ 65 mls/hr GT .[id number] [facility] Last Admin: 02/21/20 01:43 Dose: Not Given Documented by: Vancomycin IV Pharmacy to Dose (1 ea/ Sodium Chloride) 500 mls @ 250 mls/hr IV X1 PRN; Protocol PRN Reason: Rx to Dose Vancomycin HCl 750 mg/ Sodium (Chloride) 265 mls @ 250 mls/hr IV Q12H [facility] Insulin Human Lispro (Humalog Kwikpen (Bkc)) 0 unit SC Q6 [facility]; Protocol Last Admin: 02/21/20 05:39 Dose: 1 units Documented by: Lansoprazole (Lansoprazole) 15 mg NG DAILY [facility] Last Admin: 02/20/20 08:51 Dose: 15 mg Documented by: Nitroglycerin (Nitrostat) 0.4 mg SUBLINGUAL Q5M PRN PRN Reason: CARDIAC/CHEST PAIN Ondansetron HCl (Zofran) 4 mg IV Q8H PRN PRN PRN Reason: NAUSEA/VOMITING Sodium Chloride () 10 - 40 ml IV UD PRN PRN Reason: SALINE FLUSH Last Admin: 02/20/20 20:51 Dose: 40 ml Documented by: STROKE Vital Signs/Narrative: Vital Signs Temp Pulse Resp BP Pulse Ox 02/21/20 06:00 97.7 F L 70 14 129/55 H 92 02/21/20 05:00 97.7 F L 65 14 130/60 H 94 02/21/20 04:47 67 02/21/20 04:00 97.7 F L 72 16 131/51 H 92 Medical Necessity - Tobacco Use Smoking Status: Heavy Smoker (>10/day) Tobacco Use: Cigarettes Assessment/Plan All Active Problems New onset of congestive heart failure (Acute) Elevated troponin I level (Acute) Respiratory failure with hypoxia (Acute) FREIDA (acute kidney injury) (Acute) The patient is a 74 y/o M[facility] PMHx: HTN, HLD, Diabetes mellitus type II, Gout, Tobacco use who presents to the [facility] ED on 02/19/20 with history of progressively worsening dyspnea with occasional nonproductive cough, worse over the last 2 weeks and worse with exertion but more severe on day of ED presentation with no specific fever, chills, productive cough, myalgias, stomach discomfort, nausea or vomiting, diarrhea, loss or alteration to sense of taste or smell. 1. Acute Septic Shock versus Distributive Shock secondary to Acute Hypoxic Respiratory Failure secondary to Unclear Specific Etiology, Possibly Acute New Onset CHF Exacerbation of Unclear Type versus Acute Viral Syndrome, COVID-19: Transitioned from PCU admission to ICU admission, maintained in the COVID ICU unit, continued intubation status with initiation propofol and fentanyl, continue MDI inhaler PRN albuterol, maintained on IV Zosyn and Vancomycin w/ negative MRSA screen therefore 02/20/20 vanc d/c however 02/20/2020 evening with positive coag negative staph in 1 of 2 blood cultures therefore vancomycin re-added, HOB, IS parameters w/ sputum culture preliminary alpha hemolytic strep noted, negative urine antigens, respiratory viral panel negative, pending COVID, procalcitonin 1.49, LDH 314, CRP 41.20, ferritin 143. EKG with sinus rhythm with a first-degree AV block with no acute evidence of ischemia, trop 0.238 -->0.441, ECHO as noted #2, maintained on telemetry, continue supportive care, initially attempted IV Lasix therapy however given hypotension with necessity to start 02/19/2020 evening pressor therapy with hypotension discontinued, now 02/20/20 evening de-escalated off pressor therapy. TSH and free T4 normal. Magnesium 1.8. 1/2 Bld Cx 02/20/20 noting coag negative staph w/ second blood culture pending. Initiated and continued on heparin drip in the ED given concerns for possible PE involvement with elevated D-dimer which has been trending down (2.75-->1.37) as well as indeterminate cardiac enzymes. 2. Indeterminate cardiac enzymes, likely Demand Ischemia versus Myocarditis given acute presentation #1: ED evaluation with troponin 0.238, BNP 1171.8, chest x-ray with findings suggestive of scarring at the lung bases with superimposed bibasilar atelectasis and mild degree of CHF with blunting of both costophrenic angles slightly worse on the right side, EKG with sinus rhythm with a first-degree AV block with no acute evidence of ischemia. Maintained on a monitored bed, serial cardiac enzymes with trending 0.238-->0.364-->0.441, magnesium level 1.8 on admission. Continue medical management w/ asa, holding BB, defer statin given mild LFT elevations and possible #1, ECHO w/ mild segmental systolic dysfunction, EF 50%, mildly enlarged LA, mild MVI, trivial TBI, severe aortic stenosis, mild CHRIST[place]NA, evidence of diastolic dysfunction. FLP with triglycerides 97, total cholesterol 142, LDL 85, VLDL 19, HDL 38. Continued on heparin drip. 3. FREIDA superimposed on possible CKD stage III: Admission BUN/Cr 48/1.88, baseline renal function unknown and patient's denies any notable renal history but unclear specific baseline, however more likely acute kidney injury on possible chronic kidney disease, repeat 02/20/2020 BUN/creatinine 54/2.66-->02/21/20 BUN/Cr 58/2.93, rising, continue to hold nephrotoxic regimen, initial IV Lasix given concern for possible CHF discontinued secondary to hypotension with pressor usage. Given possible #1, likely ATN. 4. Hypertension: Holding patient hypertensive regimen with hypotension with pressor therapy usage initially, de-escalated on 02/20/20 evening. Resume once appropriate and normalized renal function. PRN hydralazine. 5. Hyperlipidemia: Not on regimen, FLP with triglycerides 97, total cholesterol 142, LDL 85, VLDL 19, HDL 38, temporarily hold fish oil. 6. Diabetes mellitus type II: Hold oral home regimen, HgbA1c 7.4%, TFs per ICU, accu checks w/ ISS every 6 hours while NPO. 7. Normocytic anemia, unclear if chronic: Admission CBC with hemoglobin 10.5, likely chronic but unclear, 02/21/2020 hemoglobin 9.3, will continue to trend. 8. GERD: Maintain on Protonix. 9. DVT prophylaxis: SCDs, continued heparin drip. 10. CODE STATUS: Full code. Inpatient E&M: 77238 Subs Hosp L2
[2020-02-21] MEDS: Chlorhexidine 15 ML PO ×2 (10:30→21:36)
[2020-02-21] MEDS: Aspirin 81 MG TAB.CHEW GT (10:30)
[2020-02-21] MEDS: Lansoprazole 15 MG Capsule.DR NG (10:30)
[2020-02-21 10:55] LABS: Partial Thromboplast Time 61.4 Seconds (24.1-36.2)
[2020-02-21 13:06] LABS: Bedside Glucose 213 mg/dL (70-110)
[2020-02-21] MEDS: fentaNYL drip 100 ML 15 MCG IV ×2 (13:24→19:57)
[2020-02-21] MEDS: Ipratropium/Albuterol Sulfate 3 ML AMPUL.NEB INHALATION (17:21)
[2020-02-21] MEDS: HEPARIN/D5w 25,000 UNITS 25,000 UNITS/250 ML IV.SOLN. 11 UNITS IV (17:27)
[2020-02-21] MEDS: Vital AF 1.2 Cal Liquid 1,000 ML 65 ML GT (17:27)
[2020-02-21 17:50] LABS: Bedside Glucose 266 mg/dL (70-110)
[2020-02-21 23:56] LABS: Bedside Glucose 322 mg/dL (70-110)
[2020-02-22] VITALS (36 sets, daily range): BP systolic 120–185; BP diastolic 52–88; PULSE 63–139; RESP 9–21; TEMP 36.9–37.5; O2SAT 86–99
[2020-02-22] MEDS: fentaNYL drip 100 ML 15 MCG IV (02:25)
[2020-02-22] MEDS: 0.9% Saline Lock 10 ML Syringe IV (04:52)
[2020-02-22 05:10] LABS: Absolute Lymphocyte Count 1.24 X10^3/uL (0.83-4.51); Absolute Neutrophil Count 7.8 X10^3/uL (2.0-7.7); Basophil# 0.02 X10^3/uL; Basophil% 0.2 % (0-1); Hematocrit 26.8 % (40-54); Hemoglobin 8.6 g/dL (13.0-16.5); Lymphocyte # 1.24 X10^3/ul (4.0); Lymphocyte % 11.9 % (19-41); Mean Corp Hgb Conc 32.1 g/dL (32-36); Mean Corpuscular Hgb 30.1 pg (27.0-32.0); Mean Corpuscular Volume 93.7 fL (80-94); Mean Platelet Vol. 10.7 fl (6.2-12.0); Monocyte% 11.5 % (0-10); NRBC Flagged by Analyzer 0 % (0-5); Neutrophil # 7.75 X10^3/uL (2.7-7.7); Neutrophil % 74.6 % (47-70); Platelet Count 241 K/mm3 (150-450); RBC Distribution Width CV 14.1 % (11.6-14.6); RBC Distribution Width SD 47.7 fl (35.1-43.9); Red Blood Count 2.86 M/mm3 (4.6-6.2); White Blood Count 10.4 K/mm3 (4.4-11.0)
[2020-02-22 05:20] LABS: Partial Thromboplast Time 76.5 Seconds (24.1-36.2)
[2020-02-22 05:27] LABS: ALB/GLOB Ratio 0.6 RATIO (0.9-2.4); AST(SGOT) 17 U/L (15-37); Alanine Aminotransfer ALT/SGPT 40 U/L (16-61); Albumin, Serum 2.3 g/dL (3.2-5.0); Alkaline Phosphatase 66 U/L (45-117); Anion Gap 5 (5-15); BUN 60 mg/dL (7-18); Calcium,Total 9.1 mg/dL (8.5-10.1); Chloride 106 mmol/L (98-107); Creatinine, Serum 2.31 mg/dL (0.70-1.30); EST Glomerular Filtration Rate 30 mL/min (>60); Est Glom Filt Rate - Afr Amer 36 mL/min (>60); Estimated Creatinine Clearance 27.97 ml/min; Globulin 3.8 g/dL (2.2-4.2); Glucose 280 mg/dL (74-106); Potassium 4.1 mmol/L (3.5-5.1); Protein, Total 6.1 g/dL (6.4-8.2); Sodium Level 140 mmol/L (136-145)
[2020-02-22 05:32] LABS: D-Dimer Quantitative (DVT/PE) 1.16 FEU/ug/m (0.27-0.49)
[2020-02-22] MEDS: Insulin Lispro 100 UNIT/ML INSULN.PEN SC ×3 (05:46→18:13)
[2020-02-22 05:56] LABS: Bedside Glucose 276 mg/dL (70-110)
--- NOTE | 2020-02-22 06:00 | PN_ITS ---
Subjective: The patient was seen and examined at the bedside this morning. Events from the last 24 hours have been reviewed. The patient is currently afebrile, hemodynamically stable and maintaining appropriate oxygen saturations on assist control mode mechanical ventilation with an FiO2 requirement of 50%. Spontaneous breathing trial was not attempted this morning as the patient had periodic episodes of desaturation early this morning, which responded to suctioning. COVID testing was negative. Creatinine is improved this morning to 2.3. The patient is currently documented to be overall net +4.7 L for the hospital admission. At approximately 0730 this morning, the patient apparently reported that he could not breathe and subsequently self extubated. He was quickly placed on BiPAP therapy for stabilization. Objective: The patient's most recent lab work, culture data and imaging studies have all been personally reviewed. Surface echocardiogram revealed mild segmental systolic dysfunction with an ejection fraction of 50%. There was evidence of severe aortic stenosis. Strep and urine Legionella antigens were negative. Respiratory viral panel was negative. Preliminary sputum culture was positive for alphahemolytic Streptococcus. General: Alert, No apparent distress, - - Intubated mechanically ventilated. No sedation infusing at the current time. HEENT: Atraumatic, PERRLA, Normocephalic Oral: No Gingival or Mucosal Lesions/ Ulcerations, - - Endotracheal and OG tubes in place Neck: Supple, No Nodes, Trachea Midline, - - Stable appearing central venous catheter Lungs: No rhonchi, No wheeze, No rales, Diminished Cardiovascular: Regular rate, Regular Rhythm, Normal S1, Normal S2, Murmur Abdomen: Bowel Sounds Present, Soft, Non Tender Extremities: No clubbing, No cyanosis, Edema Skin: - - No significant change from previous Musculoskeletal: No Muscle Wasting Lymphatic: No Cervical, Supraclavicular, or Inguinal Adenopathy Neurological: Neuro grossly intact, - - Alert and able to follow commands Vital Signs Temp Pulse Resp BP Pulse Ox 98.8 F 89 14 158/88 H 86 02/22/20 05:00 02/22/20 05:00 02/22/20 05:00 02/22/20 05:02/22/20 05:00 Oxygen Flow Rate (L/min) 4 Oxygen Delivery Method Mechanical Ventilator Weight: 184 lb 8.43 oz Body Mass Index (BMI) 27.5 Intake and Output for Last 24 Hours 04/02/21/20 02/22/20 23:59 23:59 23:59 Intake Total 2764.67 / 3197.17 3157.18 / 3172.18 1064.27 / 1064.27 Output Total 820 / 970 1225 / 1225 325 / 325 Balance 1944.67 / 2227.17 1932.18 / 1947.18 739.27 / 739.27 Labs (Last 48 Hours) 02/19/20 02/20/20 02/20/20 17:45 05:02 07:35 WBC RBC Hgb Hct MCV MCH MCHC RDW Std Deviation RDW Coeff of Юлия Plt Count MPV Immature Gran % (Auto) Neut % (Auto) Lymph % (Auto) [place] % (Auto) Eos % (Auto) Baso % (Auto) Absolute Neuts (auto) Absolute Lymphs (auto) Nucleated RBC % APTT 46.3 H D-Dimer Quant (PE/DVT) Cancelled Sodium Potassium Chloride Carbon Dioxide Anion Gap BUN Creatinine Estim Creat Clear Calc Est GFR (MDRD) Af Amer Est GFR (MDRD) Non-Af BUN/Creatinine Ratio Glucose Calcium Total Bilirubin AST ALT Alkaline Phosphatase Total Protein Albumin Globulin Albumin/Globulin Ratio COVID-19 (JET) Not Detected POC Glucose 178 H 02/20/20 02/20/20 02/20/20 11:24 15:00 18:54 WBC RBC Hgb Hct MCV MCH MCHC RDW Std Deviation RDW Coeff of Юлия Plt Count MPV Immature Gran % (Auto) Neut % (Auto) Lymph % (Auto) [place] % (Auto) Eos % (Auto) Baso % (Auto) Absolute Neuts (auto) Absolute Lymphs (auto) Nucleated RBC % APTT 59.5 H D-Dimer Quant (PE/DVT) Cancelled Sodium Potassium Chloride Carbon Dioxide Anion Gap BUN Creatinine Estim Creat Clear Calc Est GFR (MDRD) Af Amer Est GFR (MDRD) Non-Af BUN/Creatinine Ratio Glucose Calcium Total Bilirubin AST ALT Alkaline Phosphatase Total Protein Albumin Globulin Albumin/Globulin Ratio COVID-19 (JET) POC Glucose 149 H 159 H 02/20/20 02/21/20 02/21/20 20:50 00:39 04:00 WBC 11.0 RBC 2.97 L Hgb 9.3 L Hct 28.2 L MCV 94.9 H MCH 31.3 MCHC 33.0 RDW Std Deviation 49.0 H RDW Coeff of Юлия 14.4 Plt Count 228 MPV 10.8 Immature Gran % (Auto) 0.400 Neut % (Auto) 80.7 H Lymph % (Auto) 11.0 L [place] % (Auto) 7.5 Eos % (Auto) 0.1 Baso % (Auto) 0.3 Absolute Neuts (auto) 8.9 H Absolute Lymphs (auto) 1.21 Nucleated RBC % 0 APTT 52.7 H D-Dimer Quant (PE/DVT) Cancelled Sodium Potassium Chloride Carbon Dioxide Anion Gap BUN Creatinine Estim Creat Clear Calc Est GFR (MDRD) Af Amer Est GFR (MDRD) Non-Af BUN/Creatinine Ratio Glucose Calcium Total Bilirubin AST ALT Alkaline Phosphatase Total Protein Albumin Globulin Albumin/Globulin Ratio COVID-19 (JET) POC Glucose 161 H 02/21/20 02/21/20 02/21/20 04:00 04:00 04:00 WBC RBC Hgb Hct MCV MCH MCHC RDW Std Deviation RDW Coeff of Юлия Plt Count MPV Immature Gran % (Auto) Neut % (Auto) Lymph % (Auto) [place] % (Auto) Eos % (Auto) Baso % (Auto) Absolute Neuts (auto) Absolute Lymphs (auto) Nucleated RBC % APTT 61.2 H D-Dimer Quant (PE/DVT) Cancelled 1.37 H* Sodium 138 Potassium 4.8 Chloride 108 H Carbon Dioxide 21.0 Anion Gap 9 BUN 58 H Creatinine 2.93 H Estim Creat Clear Calc 22.05 Est GFR (MDRD) Af Amer 27 L Est GFR (MDRD) Non-Af 23 L BUN/Creatinine Ratio 19.8 Glucose 168 H Calcium 9.0 Total Bilirubin 0.40 AST 25 ALT 53 Alkaline Phosphatase 67 Total Protein 6.7 Albumin 2.7 L Globulin 4.0 Albumin/Globulin Ratio 0.7 L COVID-19 (JET) POC Glucose 02/21/20 02/21/20 02/21/20 05:38 10:30 12:47 WBC RBC Hgb Hct MCV MCH MCHC RDW Std Deviation RDW Coeff of Юлия Plt Count MPV Immature Gran % (Auto) Neut % (Auto) Lymph % (Auto) [place] % (Auto) Eos % (Auto) Baso % (Auto) Absolute Neuts (auto) Absolute Lymphs (auto) Nucleated RBC % APTT 61.4 H D-Dimer Quant (PE/DVT) Sodium Potassium Chloride Carbon Dioxide Anion Gap BUN Creatinine Estim Creat Clear Calc Est GFR (MDRD) Af Amer Est GFR (MDRD) Non-Af BUN/Creatinine Ratio Glucose Calcium Total Bilirubin AST ALT Alkaline Phosphatase Total Protein Albumin Globulin Albumin/Globulin Ratio COVID-19 (JET) POC Glucose 160 H 213 H 02/21/20 02/21/20 02/22/20 17:25 23:45 04:55 WBC 10.4 RBC 2.86 L Hgb 8.6 L Hct 26.8 L MCV 93.7 MCH 30.1 MCHC 32.1 RDW Std Deviation 47.7 H RDW Coeff of Юлия 14.1 Plt Count 241 MPV 10.7 Immature Gran % (Auto) 0.800 Neut % (Auto) 74.6 H Lymph % (Auto) 11.9 L [place] % (Auto) 11.5 H Eos % (Auto) 1.0 Baso % (Auto) 0.2 Absolute Neuts (auto) 7.8 H Absolute Lymphs (auto) 1.24 Nucleated RBC % 0 APTT D-Dimer Quant (PE/DVT) Sodium Potassium Chloride Carbon Dioxide Anion Gap BUN Creatinine Estim Creat Clear Calc Est GFR (MDRD) Af Amer Est GFR (MDRD) Non-Af BUN/Creatinine Ratio Glucose Calcium Total Bilirubin AST ALT Alkaline Phosphatase Total Protein Albumin Globulin Albumin/Globulin Ratio COVID-19 (JET) POC Glucose 266 H 322 H 02/22/20 02/22/20 02/22/20 04:55 04:55 05:43 WBC RBC Hgb Hct MCV MCH MCHC RDW Std Deviation RDW Coeff of Юлия Plt Count MPV Immature Gran % (Auto) Neut % (Auto) Lymph % (Auto) [place] % (Auto) Eos % (Auto) Baso % (Auto) Absolute Neuts (auto) Absolute Lymphs (auto) Nucleated RBC % APTT 76.5 H D-Dimer Quant (PE/DVT) 1.16 H* Sodium 140 Potassium 4.1 Chloride 106 Carbon Dioxide 29.0 Anion Gap 5 BUN 60 H Creatinine 2.31 H Estim Creat Clear Calc 27.97 Est GFR (MDRD) Af Amer 36 L Est GFR (MDRD) Non-Af 30 L BUN/Creatinine Ratio 26.0 H Glucose 280 H Calcium 9.1 Total Bilirubin 0.30 AST 17 ALT 40 Alkaline Phosphatase 66 Total Protein 6.1 L Albumin 2.3 L Globulin 3.8 Albumin/Globulin Ratio 0.6 L COVID-19 (JET) POC Glucose 276 H Microbiology 02/19/20 19:15 Blood Culture (Wb) - Anticubital Left Bacteria Detection (PCR ) - Final Coag Negative Staph 02/19/20 19:15 Blood Culture (Wb) - Anticubital Left Blood Culture - Preliminary Coag Negative Staph 02/19/20 22:55 Sputum, Induced/Lukens Gram Stain - Final 02/19/20 22:55 Sputum, Induced/Lukens Respiratory Culture - Preliminary Alpha Hemolytic Streptococcus Clinical Impression(s) from Imaging Studies Chest X-Ray 02/19/20 15:22 IMPRESSION: Findings suggestive of scarring at the lung bases with superimposed bibasilar atelectasis and mild degree of CHF. Blunting of both costophrenic angles slightly worse on the right side. Electronically Signed: Rafael Camilo, at 15:37 EDT , Service support , Chest X-Ray 02/19/20 18:34 Chest X-Ray 02/20/20 00:44 IMPRESSION: Ill-defined subpleural groundglass opacities are seen more prominent in the lung bases , may represent atypical pneumonia or viral pneumonia (COVID-19 ?). Electronically Signed: Johnnie Vaughan, at 1:31 EDT Tel , Service support , KUB X-Ray 02/20/20 04:50 IMPRESSION: An OG tube is seen stent is in the gastric lumen is in good position. Electronically Signed: Johnnie Vaughan, at 5:20 EDT Tel , Service support , Medical Necessity - Tobacco Use Smoking Status: Heavy Smoker (>10/day) Tobacco Use: Cigarettes Assessment/Plan All Active Problems New onset of congestive heart failure (Acute) Elevated troponin I level (Acute) Respiratory failure with hypoxia (Acute) FREIDA (acute kidney injury) (Acute) Aortic valve stenosis (Acute) CHF (congestive heart failure) (Acute) Anemia (Acute) Sepsis (Acute) RECOMMENDATIONS: 1. Place patient on BiPAP therapy and monitor clinically for the need for reintubation. Okay to transition to Airvo if tolerated. 2. Continue broad-spectrum antimicrobial coverage. 3. Continue empiric heparin infusion. 4. Continue bronchodilators. 5. Consider initiation of diuretic therapy today. 6. Continue appropriate ICU prophylaxis. IMPRESSIONS: 1. Acute combined respiratory failure Likely multifactorial with decompensated heart failure with pulmonary infectious etiologies contributing. The patient did require intubation, but later self extubated on the morning of February 21. The patient was subsequently transitioned to BiPAP therapy for stabilization. We will plan to wean FiO2 to maintain oxygen saturations at or above 90%. The patient will remain on empiric antimicrobials, pending finalized infectious work-up. COVID testing was nega tive. Given elevated d-dimer and concerns for viral mediated thrombotic phenomenon, the patient will be continued empirically on a heparin drip. 2. Septic shock Resolved. Most likely distributive (Septic) in nature. A component of his hypotension was also the consequence of the medication that was being utilized to sedate him while on the ventilator. The patient has since defervesced and has been weaned from vasopressor support. He is currently hemodynamically stable. Plan to continue current supportive measures along with broad-spectrum antimicrobials. 3. Acute kidney injury Most likely prerenal in etiology and related to ischemic ATN in the setting of numbers 1 and 2. Plan to continue current supportive measures. Continue to m onitor urine output. There is no current indication for renal replacement therapy. 4. Indeterminate cardiac enzymes/non-ST segment elevation MO/heart failure with preserved ejection fraction/aortic stenosis Most likely related to demand ischemia in the setting of numbers 1 and 2. Consider initiation of diuretic therapy today. 5. Hypertension/hyperlipidemia/diabetes mellitus/anemia/GERD Complicates care, management, recovery and prognosis. Continue sliding scale insulin coverage. Physical therapy evaluation, once medically stabilized. TIME: 39 minutes of critical care time, independent of procedures, was spent addressing the patient's acute combined respiratory failure, multifactorial shock, acute kidney injury, troponin elevation, review of all data and collaboration with the care team. [id number]) [id number]: [id number] Critical care first hour
--- NOTE | 2020-02-22 06:09 | CPS ---
No SBT performed at this time d/t SpO2 <88% on 40% FIO2. Pt increased to 50% FIO2 SpO2 92%.
--- NOTE | 2020-02-22 07:01 | PN_ITS ---
Patient Problems: Active and Suspected Problems New onset of congestive heart failure (Acute) Elevated troponin I level (Acute) Respiratory failure with hypoxia (Acute) FREIDA (acute kidney injury) (Acute) Subjective: The patient is a 74 y/o M[facility]: HTN, HLD, Diabetes mellitus type II, Gout, Tobacco use who presents to the [facility] ED on 02/19/20 with history of progressively worsening dyspnea with occasional nonproductive cough, worse over the last 2 weeks and worse with exertion but more severe on day of ED presentation with no specific fever, chills, productive cough, myalgias, stomach discomfort, nausea or vomiting, diarrhea, loss or alteration to sense of taste or smell. Transitioned from PCU admission to ICU admission, maintained in the [facility] ICU unit, initially intubated and sedated; however, 02/22/20 self extubation, BIPAP current transition. Maintained on IV Zosyn and Vancomycin w/ negative MRSA screen therefore 02/20/20 vanc d/c however 02/20/2020 evening with positive coag negative staph in 1 of 2 blood cultures therefore vancomycin re- added. Sputum culture preliminary alpha hemolytic strep noted, negative urine antigens, respiratory viral panel negative, pending COVID, procalcitonin 1.49, LDH 314, CRP 41.20, ferritin 143. EKG with sinus rhythm with a first-degree AV block with no acute evidence of ischemia, trop 0.238 -->0.441, ECHO as noted #2. Initially attempted IV Lasix therapy however given hypotension with necessity to start 02/19/2020 evening pressor therapy with hypotension discontinued, 02/20/20 evening de-escalated off pressor therapy. TSH and free T4 normal. Magnesium 1.8. 1/2 Bld Cx 02/20/20 noting coag negative staph w/ second blood culture pending. Initiated and continued on heparin drip in the ED given concerns for possible PE involvement with elevated D-dimer which has been trending down (2.75-->1.37-->1.16) as well as indeterminate cardiac enzymes. As noted 02/22/20 self extubation, currently on BIPAP, tolerating. Continue medical management w/ asa, given improved BP will add back BB, given LFT improvement will add statin, ECHO w/ mild segmental systolic dysfunction, EF 50%, mildly enlarged LA, mild MVI, trivial TBI, severe aortic stenosis, mild CHRISTIANA, evidence of diastolic dysfunction. FLP with triglycerides 97, total cholesterol 142, LDL 85, VLDL 19, HDL 38. Dr. Rodriguez will see 02/22/20 given now negative COVID status. Admission BUN/Cr 48/1.88, baseline renal function unknown and patient's denies any notable renal history but unclear specific baseline, however more likely acute kidney injury on possible chronic kidney disease, repeat 02/21/2020 BUN/creatinine 54/2.66-->02/21/20 BUN/Cr 58/2.93-->02/22/20 BUN/Cr 60/2.31, trending down. Holter with negative COVID testing evening prior with discontinuation of COVID precautions. Patient this a.m. off sedation and restraints also had been off patient had previously been tolerating however he had a period of significant anxiety and sensation of dyspnea with self extubation with transition to BiPAP currently. Currently tolerating BiPAP, maintaining appropriate settings. Discussed code status again at length given recent episode and patient although very reticent to have intubation again notes that if it was not absolutely necessary he would allow it again. Patient denies fevers, chills, nausea, emesis, abdominal pain, chest pain or worsened dyspnea. Objective: Physical Examination: General: awake, alert, recent self extubation, oriented x3, answering questions appropriately, previously was irritated but now calm, BiPAP in place, no obvious distress. Skin: normal color, turgor, no icterus, cyanosis. HEENT: AT/NC, EOMI, PERRLA, mildly dry MM, BIPAP in place with leak given palomino. Lungs: Transitioned recently to BiPAP status post self extubation, no acute distress, diminished breath sounds, no distress, no rales, ronchi or wheezing. Heart: Regular rate and rhythm; no gallop, rub audible, SM. Abdomen: soft, NTTP, ND, normal BS. Extremities: no cyanosis, clubbing, minimal bilateral pedal nonpitting edema. Neurological: awake, alert, recent self extubation, oriented x3, answering questions appropriately, previously was irritated but now calm, BiPAP in place, no obvious distress; cognitive function baseline intact; pupils equally reactive to light and accomodation; cranial nerves grossly appear normal, moving all extremities, strength improved, moderately globally decrease. Psychiatric: affect appears less fatigued, initially irritable, calm now, no acute evidence of depressive or anxiety feelings. Vitals/I&O's: Vital Signs Temp Pulse Resp BP Pulse Ox 98.8 F 79 15 165/63 H 91 02/22/20 06:00 02/22/20 06:00 02/22/20 06:00 02/22/20 06:00 02/22/20 06:00 Oxygen Flow Rate (L/min) 4 Oxygen Delivery Method Mechanical Ventilator Weight: 184 lb 8.43 oz Body Mass Index (BMI) 27.5 Intake and Output for Last 24 Hours 02/20/20 02/21/20 02/22/20 23:59 23:59 23:59 Intake Total 2764.67 / 3197.17 3157.18 / 3172.18 1064.27 / 1064.27 Output Total 820 / 970 1225 / 1225 325 / 325 Balance 1944.67 / 2227.17 1932.18 / 1947.18 739.27 / 739.27 Microbiology Past 72 Hours 02/19/20 19:15 Blood Culture (Wb) - Anticubital Left Bacteria Detection (PCR) - Final Coag Negative Staph 02/19/20 19:15 Blood Culture (Wb) - Anticubital Left Blood Culture - Preliminary Coag Negative Staph 02/19/20 22:55 Sputum, Induced/Lukens Gram Stain - Final 02/19/20 22:55 Sputum, Induced/Lukens Respiratory Culture - Preliminary Alpha Hemolytic Streptococcus 02/19/20 17:45 Mucosa - Nasopharyngeal Respiratory Panel (PCR) - Final 02/19/20 19:08 Urine Catheter - Catheter Streptococcus pneumoniae Antigen (M - Final 02/19/20 19:08 Urine Catheter - Catheter Legionella Antigen - Final Laboratory Results 02/19/20 17:45: COVID-19 (JET) Not Detected 02/21/20 10:30: APTT 61.4 H 02/21/20 12:47: POC Glucose 213 H 02/21/20 17:25: POC Glucose 266 H 02/21/20 23:45: POC Glucose 322 H 02/22/20 04:55: WBC 10.4, RBC 2.86 L, Hgb 8.6 L, Hct 26.8 L, MCV 93.7, MCH 30.1, MCHC 32.1, RDW Std Deviation 47.7 H, RDW Coeff of Юлия 14.1, Plt Count 241, MPV 10.7, Immature Gran % (Auto) 0.800, Neut % (Auto) 74.6 H, Lymph % (Auto) 11.9 L, [place] % (Auto) 11.5 H, Eos % (Auto) 1.0, Baso % (Auto) 0.2, Absolute Neuts (auto) 7.8 H, Absolute Lymphs (auto) 1.24, Nucleated RBC % 0 02/22/20 04:55: Sodium 140, Potassium 4.1, Chloride 106, Carbon Dioxide 29.0, Anion Gap 5, BUN 60 H, Creatinine 2.31 H, Estim Creat Clear Calc 27.97, Est GFR (MDRD) Af Amer 36 L, Est GFR (MDRD) Non-Af 30 L, BUN/Creatinine Ratio 26.0 H, Glucose 280 H, Calcium 9.1, Total Bilirubin 0.30, AST 17, ALT 40, Alkaline Phosphatase 66, Total Protein 6.1 L, Albumin 2.3 L, Globulin 3.8, Albumin/Globulin Ratio 0.6 L 02/22/20 04:55: APTT 76.5 H, D-Dimer Quant (PE/DVT) 1.16 H* 02/22/20 05:43: POC Glucose 276 H Current Medications Acetaminophen (Tylenol Liquid) 650 mg GT Q6H PRN PRN PRN Reason: Pain Score 1-10/Temp > 100.7 F Albuterol/Ipratropium (Duoneb) 3 ml INHALATION Q6HWA.RT ALO Last Admin: 02/21/20 17:21 Dose: 3 ml Documented by: Aspirin (Aspirin, Baby) 81 mg GT 1000 ALO Last Admin: 02/21/20 10:30 Dose: 81 mg Documented by: Chlorhexidine Gluconate () 15 ml PO BID [facility] Last Admin: 02/21/20 21:36 Dose: 15 ml Documented by: Dextrose (D50w Syringe) 0 gm IV X1 PRN; Protocol PRN Reason: Hypoglycemia Glucagon () 1 mg IM .X1 PRN PRN Reason: Hypoglycemia Heparin Sodium (Porcine) (Heparin Na) 0 unit IV UD PRN; Protocol Last Admin: 02/20/20 21:59 Dose: 1,000 unit Documented by: Heparin Sodium/Dextrose () 25,000 units in 250 mls @ 12 mls/hr IV .[id number] [facility]; Protocol Last Infusion: 02/22/20 05:28 Dose: 1,100 units/hr, 11 mls/hr Documented by: Piperacillin Sod/Tazobactam (Sod 3.375 gm/ Sodium Chloride) 50 mls @ 12.5 mls/hr IV Q8 [facility] Last Admin: 02/22/20 05:44 Dose: 12.5 mls/hr Documented by: Fentanyl () 100 mls @ 5 mls/hr IV UD [facility]; Protocol Last Titration: 02/22/20 06:00 Dose: 0 mcg/hr, 0 mls/hr Documented by: Sodium Chloride () 250 mls @ 15 mls/hr IV .[id number] PRN PRN Reason: Saline Flush Sodium Chloride () 250 mls @ 15 mls/hr IV .[id number] PRN PRN Reason: Additional IVPB Infusion Enteral Nutritional Formula (Vital Af 1.2 Charly Liquid) 1,000 mls @ 65 mls/hr GT .[id number] [facility] Last Admin: 02/21/20 17:27 Dose: 65 mls/hr Documented by: Vancomycin IV Pharmacy to Dose (1 ea/ Sodium Chloride) 500 mls @ 250 mls/hr IV X1 PRN; Protocol PRN Reason: Rx to Dose Vancomycin HCl 750 mg/ Sodium (Chloride) 265 mls @ 250 mls/hr IV Q12H [facility] Last Infusion: 02/22/20 03:02 Dose: Infused Documented by: Insulin Human Lispro (Humalog Kwikpen (Bkc)) 0 unit SC Q6 [facility]; Protocol Last Admin: 02/22/20 05:46 Dose: 4 units Documented by: Lansoprazole (Lansoprazole) 15 mg NG DAILY [facility] Last Admin: 02/21/20 10:30 Dose: 15 mg Documented by: Nitroglycerin (Nitrostat) 0.4 mg SUBLINGUAL Q5M PRN PRN Reason: CARDIAC/CHEST PAIN Ondansetron HCl (Zofran) 4 mg IV Q8H PRN PRN PRN Reason: NAUSEA/VOMITING Sodium Chloride () 10 - 40 ml IV UD PRN PRN Reason: SALINE FLUSH Last Admin: 02/22/20 04:52 Dose: 30 ml Documented by: STROKE Vital Signs/Narrative: Vital Signs Temp Pulse Resp BP Pulse Ox 02/22/20 06:00 98.8 F 79 15 165/63 H 91 02/22/20 05:00 98.8 F 74 14 158/88 H 90 02/22/20 04:00 98.7 F 69 14 157/57 H 90 Medical Necessity - Tobacco Use Smoking Status: Heavy Smoker (>10/day) Tobacco Use: Cigarettes Assessment/Plan All Active Problems New onset of congestive heart failure (Acute) Elevated troponin I level (Acute) Respiratory failure with hypoxia (Acute) FREIDA (acute kidney injury) (Acute) The patient is a 74 y/o M, [facility]: HTN, HLD, Diabetes mellitus type II, Gout, Tobacco use who presents to the [facility] ED on 02/19/20 with history of progressively worsening dyspnea with occasional nonproductive cough, worse over the last 2 weeks and worse with exertion but more severe on day of ED presentation with no specific fever, chills, productive cough, myalgias, stomach discomfort, nausea or vomiting, diarrhea, loss or alteration to sense of taste or smell. 1. Acute Septic Shock versus Distributive Shock secondary to Acute Hypoxic Res piratory Failure secondary to Unclear Specific Etiology, Possibly Acute New Onset CHF Exacerbation of Unclear Type, RULED OUT Acute Viral Syndrome, COVID- 19: Transitioned from PCU admission to ICU admission, maintained in the COVID ICU unit, initially intubated and sedated; however, 02/22/20 self extubation, BIPAP current transition. Maintained on IV Zosyn and Vancomycin w/ negative MRSA screen therefore 02/20/20 vanc d/c however 02/20/2020 evening with positive coag negative staph in 1 of 2 blood cultures therefore vancomycin re-added. Sputum culture preliminary alpha hemolytic strep noted, negative urine antigens, respiratory viral panel negative, pending COVID, procalcitonin 1.49, LDH 314, CRP 41.20, ferritin 143. EKG with sinus rhythm with a first-degree AV block with no acute evidence of ischemia, trop 0.238 -->0.441, ECHO as noted #2. Initially attempted IV Lasix therapy however given hypotension with necessity to start 02/19/2020 evening pressor therapy with hypotension discontinued, 02/20/20 evening de-escalated off pressor therapy. TSH and free T4 normal. Magnesium 1.8. 1/2 Bld Cx 02/20/20 noting coag negative staph w/ second blood culture pending. Initiated and continued on heparin drip in the ED given concerns for possible PE involvement with elevated D-dimer which has been trending down (2.75-->1.37-->1.16) as well as indeterminate cardiac enzymes. As noted 02/22/20 self extubation, currently on BIPAP, tolerating. 2. Indeterminate cardiac enzymes, likely Demand Ischemia secondary to acute presentation #1: ED evaluation with troponin 0.238, BNP 1171.8, chest x-ray with findings suggestive of scarring at the lung bases with superimposed bibasilar atelectasis and mild degree of CHF with blunting of both costophrenic angles slightly worse on the right side, EKG with sinus rhythm with a first-degree AV block with no acute evidence of ischemia. Maintained on a monitored bed, serial cardiac enzymes with trending 0.238-->0.364-->0.441, magnesium level 1.8 on admission. Continue medical management w/ asa, given improved BP will add back BB, given LFT improvement will add statin, ECHO w/ mild segmental systolic dysfunction, EF 50%, mildly enlarged LA, mild MVI, trivial TBI, severe aortic stenosis, mild CHRISTIANA, evidence of diastolic dysfunction. FLP with triglycerides 97, total cholesterol 142, LDL 85, VLDL 19, HDL 38. Continued on heparin drip. 3. FREIDA superimposed on possible CKD stage III: Admission BUN/Cr 48/1.88, baseline renal function unknown and patient's denies any notable renal history but unclear specific baseline, however more likely acute kidney injury on possible chronic kidney disease, repeat 02/21/2020 BUN/creatinine 54/2.66-->02/21/20 BUN/Cr 58/2.93-->02/22/20 BUN/Cr 60/2.31, trending down. Will continue to hold nephrotoxic regimen, initial IV Lasix given concern for possible CHF discontinued secondary to hypotension with pressor usage. Given possible #1, likely ATN. 4. Hypertension: Hypotensive initially, required transient pressor usage, now extubated, BP improved, adding back BB, holding ACEI still given FREIDA. PRN hydralazine. 5. Hyperlipidemia: Not on regimen, FLP with triglycerides 97, total cholesterol 142, LDL 85, VLDL 19, HDL 38, adding statin given #2. 6. Diabetes mellitus type II: Hold oral home regimen, HgbA1c 7.4%, extubated, add ADA once cleared given recent self extubation, accu checks w/ ISS. 7. Normocytic anemia, unclear if chronic: Admission CBC with hemoglobin 10.5, likely chronic but unclear, 02/22/2020 hemoglobin 8.6, will continue to trend. 8. GERD: Maintain on Protonix. 9. DVT prophylaxis: SCDs, continued heparin drip. 10. CODE STATUS: Discussed CODE status at length including difference between FULL code, DNR-CCA and DNR-CC status given recent self-extubation and although not eager notes if needed would remain full code and be re-intubated if felt medically necessary. Advanced Care Planning Face to Face Time: 16 minutes. Inpatient E&M: 42567 Subs Hosp L3 Procedures: 69116 Advncd Care Plan 30 Min
--- NOTE | 2020-02-22 07:33 | CPS ---
No stridor noted after self extubation.
[2020-02-22] MEDS: Furosemide 40 MG/4 ML Vial IV (08:42)
--- NOTE | 2020-02-22 11:14 | CON.PCM_ITS ---
Problem List (1) Aortic valve stenosis Status: Acute (2) CHF (congestive heart failure) Status: Acute (3) Elevated troponin I level Status: Acute (4) HLD (hyperlipidemia) Status: Chronic (5) Hypertension Status: Chronic (6) Type 2 diabetes mellitus Status: Chronic (7) FREIDA (acute kidney injury) Status: Acute (8) Anemia Status: Acute (9) Sepsis Status: Acute Reason for Consult Date of Consultation: 02/22/20 History of Present Illness: The patient is a 74 year old white male who presented for concerns of progressive shortness of breath/dyspnea, was found to have hypoxemia, required urgent mechanical intubation/ventilation, has undergone extensive ICU evaluation and care including COVID-19 evaluation (reported as non-detectable), who is now status post self extubation, with subsequent cardiovascular concerns of aortic valve stenosis, CHF, abnormal cardiac enzymes, superimposed upon a history of hyperlipidemia, hypertension, diabetes mellitus, as well as now renal insufficiency, anemia, and sepsis. The patient states at home he does not recall having chest discomfort. He recalls being progressively short of breath and dyspneic. He also notes that he had lower extremity peripheral pitting edema. He does not not recall any episodes of syncope although he states he has had near fainting spells in the past. He notes through the [facility] in December of this year he wore a heart monitor for 2 weeks. He has not heard the results of his heart monitor. He also notes that he has had ultrasound pictures which he believes are of his heart in the past. He believes this was to follow his heart murmur that he has had all his life. He also believes the [facility] had discussed with him the need for future additional cardiac evaluation including cardiac catheterization, however, he does not believe he has undergone a cardiac catheterization procedure in the past. He states the [facility] has also been following his adrenal glands. Since his hospitalization he underwent cardiac enzymes which have been indeterminant. He has a ECGs that demonstrated sinus rhythm with a first-degree AV block and subsequently sinus rhythm with a first-degree block and T wave abnormality compatible with myocardial ischemia-anterior. He had a transthoracic echocardiogram performed. The results are as noted below. His chest x-rays have demonstrated findings of concern of CHF as well as concern of groundglass appearance. He underwent COVID-19 evaluation which was reported as nondetectable. He has undergone medical treatment which included diuretic therapy. His creatinine level increased and is subsequently decreasing. He subsequently felt that he could not breathe and self extubated himself. He states his breathing is better at this time. He also notes that now that he can see his lower extremities but they are markedly better at this time. [] Past Medical History Allergies/Adverse Reactions: Allergies No Known Allergies Allergy (Verified 02/19/20 14:24) Home Medications: Ambulatory Orders Medication Instructions Recorded Allopurinol [Zyloprim] 300 mg PO DAILY 02/19/20 Alogliptin Benzoate [Alogliptin] 12.5 mg PO DAILY 02/19/20 Aspirin E.C. [Ecotrin] 81 mg PO DAILY@0800 02/19/20 Chlorthalidone 37.5 mg PO DAILY 02/19/20 Lisinopril 20 mg PO BID 02/19/20 Metoprolol Tartrate 50 mg PO BID 02/19/20 Banks-3 Fatty Acids/Fish Oil [Fish 1 cap PO DAILY 02/19/20 Oil 1,000 mg Capsule] glipiZIDE [Glucotrol] 10 mg PO DAILY 02/19/20 metFORMIN HCl [Glucophage] 500 mg PO BIDCM 02/19/20 Past Medical History (Chronic Problems): Chronic Problems Hypertension (Chronic) Type 2 diabetes mellitus (Chronic) HLD (hyperlipidemia) (Chronic) Surgical History: noncontributory - *Family History Maternal History Items: - - No CAD Lives: Alone Smoking Status: Heavy Smoker (>10/day) Tobacco Use: Cigarettes Alcohol: None Drugs: Marijuana - Occasional Review of Systems - Review of Systems General: Denies: Fever, Night Sweats, Fatigue Cardiovascular: Reports: Shortness of Breath, Shortness of Breath at Rest, Peripheral Edema. Denies: Chest Discomfort, Orthopnea, PND, Palpitations, Lightheadedness, Dizziness, Near Syncope, Syncope Respiratory: Reports: Shortness of Breath. Denies: Cough, Sputum Production, Hemoptysis Gastrointestinal: Denies: Hematemesis, Hematochezia, Melena Genitourinary: Denies: Dysuria, Hematuria Skin: Denies: Rash Subjectve: This is a 74-year-old white male who appears to be resting reasonably comfortably at the moment in no acute distress. Objective: Vital Signs Temp Pulse Resp BP Pulse Ox 98.8 F 88 18 157/68 H 92 02/22/20 06:00 02/22/20 09:26 02/22/20 09:26 02/22/20 09:00 02/22/20 09:26 Oxygen Flow Rate (L/min) 4 Oxygen Delivery Method Bi-pap Weight: 184 lb 8.43 oz Body Mass Index (BMI) 27.5 Intake and Output for Last 24 Hours 02/20/20 02/21/20 02/22/20 23:59 23:59 23:59 Intake Total 2764.67 / 3197.17 3157.18 / 3172.18 1131.14 / 1131.14 Output Total 820 / 970 1225 / 1225 325 / 325 Balance 1944.67 / 2227.17 1932.18 / 1947.18 806.14 / 806.14 General: Awake, Alert, Oriented x 3 HEENT: Atraumatic, Normocephalic, PERRL, EOMI, Sclera Non Icteric Neck: Supple, Good ROM Lungs: Diminished Sunil Bases Cardiovascular: Regular Rhythm, Premature Ectopic Beats, Normal S1, Dimished A2 Murmur Murmur: Grade 2/6, Harsh, Mid Systolic, LLSB, LVOT, Sternal Notch Abdomen: Bowel Sounds Present, Soft, Non Tender Extremities: Trace RLE Edema, Trace LLE Edema Neurological: No Focal Motor or Sensory Deficit Psych/Mental Status: Appropriate 02/22/20 04:55: WBC 10.4, RBC 2.86 L, Hgb 8.6 L, Hct 26.8 L, MCV 93.7, MCH 30.1, MCHC 32.1, Plt Count 241, MPV 10.7, Immature Gran % (Auto) 0.800, Neut % (Auto) 74.6 H, Lymph % (Auto) 11.9 L, [place] % (Auto) 11.5 H, Eos % (Auto) 1.0, Baso % (Auto) 0.2, Absolute Neuts (auto) 7.8 H, Nucleated RBC % 0 02/22/20 04:55: Sodium 140, Potassium 4.1, Chloride 106, Carbon Dioxide 29.0, Anion Gap 5, BUN 60 H, Creatinine 2.31 H, Est GFR (MDRD) Af Amer 36 L, Est GFR (MDRD) Non-Af 30 L, BUN/Creatinine Ratio 26.0 H, Glucose 280 H, Calcium 9.1, Total Bilirubin 0.30 02/22/20 04:55: APTT 76.5 H, D-Dimer Quant (PE/DVT) 1.16 H* COVID-19: reported as Non Detected Rhythm: Sinus rhythm; PACs; PVCs EKG: Sinus rhythm; first-degree block Sinus rhythm; first-degree block; T wave abnormality-consider myocardial ischemia-anterior ECHO: Interpretation Summary The study was technically difficult. Contrast injection was performed. Mild segmental systolic dysfunction (see wall motion). The estimated ejection fraction is 50 %. The left atrium is mildly enlarged. There is mild mitral annular calcification. Mild (1+) mitral valve insufficiency. Trivial tricuspid valve insufficiency. Severe aortic stenosis. Mild (1+) aortic valve insufficiency. Calcified aortic root. Unable to estimate RV systolic pressure/pulmonary artery pressure due to technically difficult study. There is evidence of diastolic dysfunction. CXR: Preliminary evaluation: cephalization; possible small left pleural effusion; please see official report evaluation: Assessment/Plan 1. Aortic Valve Stenosis The patient has been found by noninvasive studies to have findings compatible with severe aortic valve stenosis. This could contribute to his concern of chronic shortness of breath and dyspnea, development of CHF, and his subsequent clinical course superimposed upon separate concerns of an underlying infectious disease related issue. At the present time he will need, when he is able, future cardiovascular evaluation, if he so desires, which ideally would include an evaluation that would lead to aortic valve replacement. Such an evaluation would include studies such as diagnostic cardiac catheterization and a chest CT scan. However there is concern about proceeding in this manner at this time based upon his acute renal insufficiency. Thus at the present time he would be followed and treated medically as best as possible. 2. CHF: acute diastolic mediated He does have a history and findings suggestive of underlying CHF. Again this could come from his aortic valve stenosis. His LV is wall motion and systolic function was reviewed. There is concern his CHF may be diastolic mediated. At the moment he does appear to be improved after he is undergone evaluation care including diuretic therapy. He will need continued monitoring of his CHF status. His medicines will need to be adjusted over time, as his vital signs, renal function, and aortic valve allow. This may include the need for long-term diuretic therapy. 3. Abnormal TI levels He did have indeterminate troponin I levels. These may be a type II event secondary to supply demand mismatch brought on by his hypoxemia superimposed upon his aortic valve stenosis, etc. At some point in time, if and when he desires, and his renal function is stable, he should be considered for further evaluation with diagnostic cardiac catheterization to evaluate his coronary anatomy. This would also be used in preparation for future aortic valve replacement evaluation. 4. Hyperlipidemia He should continue risk factor evaluation care as deemed appropriate. 5. Hypertension His blood pressures will need to be followed. As they allow, as well as his renal function, aortic valve, etc. his medications can be adjusted in attempt to bring his blood pressures under better control. 6. Diabetes Mellitus He we will continue evaluation care per internal medicine. 7. Acute Renal Insufficiency He had the appearance of acute renal insufficiency. His baseline renal function is not clear. His creatinine level is improving. 8. Anemia He has been noted to be anemic upon arrival. His hemoglobin is decreased. This will need to be followed for any obvious evidence of hemorrhagic related issues that require further evaluation care. 9. Sepsis There were concerns of the patient had an underlying infectious disease etiology initially superimposed upon any cardiac condition. He did have 1+ blood culture. It is unclear whether it was a contaminant. Repeat blood cultures are pending. He had been treated medically. This has included antibiotic therapy. Again he appears to be improving overall with respect to his clinical status and hemodynamics. He will continue evaluation care per internal medicine and the pulmonology/critical care staff. Comment: The patients case has been discussed and reviewed with Dr. Olson. This note was generated using a voice recognition system and there may be incorrect words, spelling or punctuation that were not noted when reviewing the office note prior to saving.
[2020-02-22] MEDS: Ipratropium/Albuterol Sulfate 3 ML AMPUL.NEB INHALATION ×2 (13:09→18:29)
[2020-02-22] MEDS: HEPARIN/D5w 25,000 UNITS 25,000 UNITS/250 ML IV.SOLN. 11 UNITS IV (16:14)
[2020-02-22 16:16] LABS: Bedside Glucose 309 mg/dL (70-110)
[2020-02-22 18:26] LABS: Bedside Glucose 301 mg/dL (70-110)
[2020-02-22] MEDS: Metoprolol Tartrate 50 MG Tablet PO (22:40)
[2020-02-22] MEDS: Atorvastatin Calcium 40 MG Tablet PO (22:40)
[2020-02-23] VITALS (30 sets, daily range): BP systolic 119–175; BP diastolic 51–82; PULSE 61–94; RESP 11–21; TEMP 36.8–38.1; O2SAT 89–96
[2020-02-23] MEDS: Insulin Lispro 100 UNIT/ML INSULN.PEN SC ×5 (00:26→21:44)
[2020-02-23 00:36] LABS: Bedside Glucose 214 mg/dL (70-110)
[2020-02-23] MEDS: 0.9% Saline Lock 10 ML Syringe IV ×3 (01:24→21:55)
[2020-02-23 03:35] LABS: Vancomycin, Trough Level 14.6 ug/mL (5.0-15.0)
--- NOTE | 2020-02-23 04:13 | RAD_ITS ---
STUDY: X-RAY CHEST REASON FOR EXAM: Male, 74 years old. shortness of breath TECHNIQUE: 2 AP portable views chest were obtained. COMPARISON: 02/20/2020. FINDINGS: Right internal jugular central venous catheter tip overlies the superior vena cava. There is non-dense infiltration in the lungs bilaterally, with interval worsening from previous study. There is no demonstrated pleural abnormality. Normal size heart. Normal mediastinum and sugey. Normal visualized pulmonary arteries. There is atherosclerotic calcification of the aortic arch with tortuosity. There are diffuse degenerative changes of the visualized thoracic spine. . There is no demonstrated abnormality of the visualized soft tissue structures of the upper abdomen. RAD/Chest 1 View (Portable) IMPRESSION: Pulmonary infiltration is slightly worsened from previous study. Central line is in stable position. Electronically Signed: Caesar Greer MD at 5:41 EDT , Service support ,
[2020-02-23 04:27] LABS: Absolute Lymphocyte Count 1.51 X10^3/uL (0.83-4.51); Absolute Neutrophil Count 10.5 X10^3/uL (2.0-7.7); Basophil# 0.03 X10^3/uL; Basophil% 0.2 % (0-1); Eosinophil# 0.06 X10^3/uL; Eosinophils% 0.4 % (0-5); Hematocrit 29.4 % (40-54); Hemoglobin 9.5 g/dL (13.0-16.5); Lymphocyte # 1.51 X10^3/ul (4.0); Lymphocyte % 11.1 % (19-41); Mean Corp Hgb Conc 32.3 g/dL (32-36); Mean Corpuscular Hgb 30.3 pg (27.0-32.0); Mean Corpuscular Volume 93.6 fL (80-94); Monocyte# 1.37 X10^3/uL; Monocyte% 10.1 % (0-10); NRBC Flagged by Analyzer 0 % (0-5); Neutrophil # 10.47 X10^3/uL (2.7-7.7); Neutrophil % 77.2 % (47-70); Platelet Count 274 K/mm3 (150-450); RBC Distribution Width CV 14.2 % (11.6-14.6); RBC Distribution Width SD 47.6 fl (35.1-43.9); Red Blood Count 3.14 M/mm3 (4.6-6.2); White Blood Count 13.6 K/mm3 (4.4-11.0)
[2020-02-23 04:34] LABS: Partial Thromboplast Time 66.2 Seconds (24.1-36.2)
[2020-02-23 04:48] LABS: D-Dimer Quantitative (DVT/PE) 1.55 FEU/ug/m (0.27-0.49)
[2020-02-23 04:57] LABS: ALB/GLOB Ratio 0.6 RATIO (0.9-2.4); AST(SGOT) 28 U/L (15-37); Alanine Aminotransfer ALT/SGPT 44 U/L (16-61); Albumin, Serum 2.4 g/dL (3.2-5.0); Alkaline Phosphatase 67 U/L (45-117); Anion Gap 5 (5-15); BUN 54 mg/dL (7-18); BUN/Creat Ratio 29.2 RATIO (10-20); Calcium,Total 9.4 mg/dL (8.5-10.1); Chloride 112 mmol/L (98-107); Creatinine, Serum 1.85 mg/dL (0.70-1.30); EST Glomerular Filtration Rate 38 mL/min (>60); Est Glom Filt Rate - Afr Amer 46 mL/min (>60); Estimated Creatinine Clearance 34.92 ml/min; Glucose 216 mg/dL (74-106); Potassium 4.4 mmol/L (3.5-5.1); Protein, Total 6.4 g/dL (6.4-8.2); Sodium Level 142 mmol/L (136-145)
--- NOTE | 2020-02-23 05:55 | EKG12_ITS ---
Test Reason : AM EKG Blood Pressure : / mmHG Vent. Rate : 078 BPM Atrial Rate : 078 BPM P-R Int : 186 ms QRS Dur : 092 ms QT Int : 404 ms P-R-T Axes : 043 055 099 degrees QTc Int : 460 ms Normal sinus rhythm Nonspecific ST and T wave abnormality Prolonged QT Abnormal ECG Confirmed by JOSUE SOLANO, BRADLEY ([id number]), slot editor KARY CASTRO ([id number] on 03/01/2020 3:16:49 PM Referred By: ELZA Confirmed By:BRADLEY SALAS MD
[2020-02-23 06:06] LABS: Bedside Glucose 224 mg/dL (70-110)
--- NOTE | 2020-02-23 06:31 | PCM.RX.CS ---
Consult Pharmacy has been consulted to manage selected antiobiotic: Vancomycin Type of Consult: Follow-up Labs: Sodium 142 mmol/L (136-145) 02/23/20 04:11 Potassium 4.4 mmol/L (3.5-5.1) 02/23/20 04:11 Chloride 112 mmol/L (98-107) H 02/23/20 04:11 Carbon Dioxide 25.0 mmol/L (21.0-32.0) 02/23/20 04:11 Anion Gap 5 (5-15) 02/23/20 04:11 BUN 54 mg/dL (7-18) H 02/23/20 04:11 Creatinine 1.85 mg/dL (0.70-1.30) H 02/23/20 04:11 Est GFR (MDRD) Af Amer 46 mL/min (>60) L 02/23/20 04:11 Est GFR (MDRD) Non-Af 38 mL/min (>60) L 02/23/20 04:11 BUN/Creatinine Ratio 29.2 RATIO (10-20) H 02/23/20 04:11 Glucose 216 mg/dL (74-106) H 02/23/20 04:11 Vancomycin Trough 14.6 ug/mL (5.0-15.0) 02/23/20 01:28 Microbiology: Microbiology 02/19/20 19:00 Blood Culture (Wb) - Right Wrist Blood Culture - Preliminary No growth in 48 hours. 02/19/20 22:55 Sputum, Induced/Lukens Gram Stain - Final 02/19/20 22:55 Sputum, Induced/Lukens Respiratory Culture - Final 02/19/20 19:15 Blood Culture (Wb) - Anticubital Left Bacteria Detection (PCR) - Final Coag Negative Staph 02/19/20 19:15 Blood Culture (Wb) - Anticubital Left Blood Culture - Preliminary Coag Negative Staph 02/19/20 17:45 Mucosa - Nasopharyngeal Respiratory Panel (PCR) - Final 02/19/20 19:08 Urine Catheter - Catheter Streptococcus pneumoniae Antigen (M - Final 02/19/20 19:08 Urine Catheter - Catheter Legionella Antigen - Final Goal Trough: 15-20 mcg/mL Pharmacy Plan for Drug Dosing: Pharmacy Service will continue to monitor and adjust dosing as required. TROUGH 14.6 NO CHANGES Follow-Up Labs: Trough Vancomycin Labs to be done on [date and time ordered]: 02/26 @ 5285
--- NOTE | 2020-02-23 07:13 | PCM.PN.INT ---
Subjective: Patient did okay overnight. Patient did require BiPAP while sleeping, but was able to be placed on airVo this morning and appears to be tolerating well. Patient is not reporting any significant cough. COVID testing has come back negative. Repeat blood culture is still pending. Patient was able to tolerate p.o. medications with applesauce. Objective: Chest x-ray was personally reviewed and does show increasing infiltrates bilaterally General: Alert, Oriented x3, Cooperative, - - Mild to moderate conversational dyspnea. HEENT: Atraumatic, PERRLA, EOMI, Normocephalic, - - Large palomino. No scleral icterus or injection noted Oral: No Gingival or Mucosal Lesions/ Ulcerations, Dry Mucosa Neck: Supple, No JVD, No Nodes, Trachea Midline Lungs: No rhonchi, No wheeze, Diminished, Rales, - - Symmetric expansion. Cardiovascular: Regular rate, Regular Rhythm, Normal S1, Normal S2 Abdomen: Bowel Sounds Present, Soft, Non Tender, Distended - Slightly Extremities: No clubbing, No cyanosis, Edema Skin: No rashes, No breakdown Musculoskeletal: No Tenderness to Palpation of Joints or Extremities Lymphatic: No Cervical, Supraclavicular, or Inguinal Adenopathy Neurological: Cranial nerves II-XII grossly intact, Neuro grossly intact, Motor Exam 5/5 strength throughout Psych/Mental Status: Normal Affect, Appropriate Vital Signs Temp Pulse Resp BP Pulse Ox 37.5 C H 66 18 159/79 H 94 02/23/20 07:00 02/23/20 07:00 02/23/20 07:00 02/23/20 07:00 02/23/20 07:00 Oxygen Flow Rate (L/min) 4 Oxygen Delivery Method Bi-pap Weight: 82.6 kg Body Mass Index (BMI) 27.5 Intake and Output for Last 24 Hours 02/21/20 02/22/20 02/23/20 23:59 23:59 23:59 Intake Total 3157.18 / 3172.18 1597.08 / 1597.08 451.95 / 451.95 Output Total 1225 / 1225 3975 / 3975 500 / 500 Balance 1932.18 / 1947.18 -2377.92 / -2377.92 -48.05 / -48.05 Labs (Last 48 Hours) 02/19/20 02/21/20 02/21/20 17:45 10:30 12:47 WBC RBC Hgb Hct MCV MCH MCHC RDW Std Deviation RDW Coeff of Юлия Plt Count MPV Immature Gran % (Auto) Neut % (Auto) Lymph % (Auto) [place] % (Auto) Eos % (Auto) Baso % (Auto) Absolute Neuts (auto) Absolute Lymphs (auto) Nucleated RBC % APTT 61.4 H D-Dimer Quant (PE/DVT) Sodium Potassium Chloride Carbon Dioxide Anion Gap BUN Creatinine Estim Creat Clear Calc Est GFR (MDRD) Af Amer Est GFR (MDRD) Non-Af BUN/Creatinine Ratio Glucose Calcium Total Bilirubin AST ALT Alkaline Phosphatase Troponin I Total Protein Albumin Globulin Albumin/Globulin Ratio Vancomycin Trough COVID-19 (JET) Not Detected POC Glucose 213 H 02/21/20 02/21/20 02/22/20 17:25 23:45 04:55 WBC 10.4 RBC 2.86 L Hgb 8.6 L Hct 26.8 L MCV 93.7 MCH 30.1 MCHC 32.1 RDW Std Deviation 47.7 H RDW Coeff of Юлия 14.1 Plt Count 241 MPV 10.7 Immature Gran % (Auto) 0.800 Neut % (Auto) 74.6 H Lymph % (Auto) 11.9 L [place] % (Auto) 11.5 H Eos % (Auto) 1.0 Baso % (Auto) 0.2 Absolute Neuts (auto) 7.8 H Absolute Lymphs (auto) 1.24 Nucleated RBC % 0 APTT D-Dimer Quant (PE/DVT) Sodium Potassium Chloride Carbon Dioxide Anion Gap BUN Creatinine Estim Creat Clear Calc Est GFR (MDRD) Af Amer Est GFR (MDRD) Non-Af BUN/Creatinine Ratio Glucose Calcium Total Bilirubin AST ALT Alkaline Phosphatase Troponin I Total Protein Albumin Globulin Albumin/Globulin Ratio Vancomycin Trough COVID-19 (JET) POC Glucose 266 H 322 H 02/22/20 02/22/20 02/22/20 04:55 04:55 05:43 WBC RBC Hgb Hct MCV MCH MCHC RDW Std Deviation RDW Coeff of Юлия Plt Count MPV Immature Gran % (Auto) Neut % (Auto) Lymph % (Auto) [place] % (Auto) Eos % (Auto) Baso % (Auto) Absolute Neuts (auto) Absolute Lymphs (auto) Nucleated RBC % APTT 76.5 H D-Dimer Quant (PE/DVT) 1.16 H* Sodium 140 Potassium 4.1 Chloride 106 Carbon Dioxide 29.0 Anion Gap 5 BUN 60 H Creatinine 2.31 H Estim Creat Clear Calc 27.97 Est GFR (MDRD) Af Amer 36 L Est GFR (MDRD) Non-Af 30 L BUN/Creatinine Ratio 26.0 H Glucose 280 H Calcium 9.1 Total Bilirubin 0.30 AST 17 ALT 40 Alkaline Phosphatase 66 Troponin I Total Protein 6.1 L Albumin 2.3 L Globulin 3.8 Albumin/Globulin Ratio 0.6 L Vancomycin Trough COVID-19 (JET) POC Glucose 276 H 02/22/20 02/22/20 02/23/20 13:17 18:09 00:24 WBC RBC Hgb Hct MCV MCH MCHC RDW Std Deviation RDW Coeff of Юлия Plt Count MPV Immature Gran % (Auto) Neut % (Auto) Lymph % (Auto) [place] % (Auto) Eos % (Auto) Baso % (Auto) Absolute Neuts (auto) Absolute Lymphs (auto) Nucleated RBC % APTT D-Dimer Quant (PE/DVT) Sodium Potassium Chloride Carbon Dioxide Anion Gap BUN Creatinine Estim Creat Clear Calc Est GFR (MDRD) Af Amer Est GFR (MDRD) Non-Af BUN/Creatinine Ratio Glucose Calcium Total Bilirubin AST ALT Alkaline Phosphatase Troponin I Total Protein Albumin Globulin Albumin/Globulin Ratio Vancomycin Trough COVID-19 (JET) POC Glucose 309 H 301 H 214 H 02/23/20 02/23/20 02/23/20 01:28 04:11 04:11 WBC 13.6 H RBC 3.14 L Hgb 9.5 L Hct 29.4 L MCV 93.6 MCH 30.3 MCHC 32.3 RDW Std Deviation 47.6 H RDW Coeff of Юлия 14.2 Plt Count 274 MPV 11.0 Immature Gran % (Auto) 1.000 H Neut % (Auto) 77.2 H Lymph % (Auto) 11.1 L [place] % (Auto) 10.1 H Eos % (Auto) 0.4 Baso % (Auto) 0.2 Absolute Neuts (auto) 10.5 H Absolute Lymphs (auto) 1.51 Nucleated RBC % 0 APTT D-Dimer Quant (PE/DVT) Sodium 142 Potassium 4.4 Chloride 112 H Carbon Dioxide 25.0 Anion Gap 5 BUN 54 H Creatinine 1.85 H Estim Creat Clear Calc 34.92 Est GFR (MDRD) Af Amer 46 L Est GFR (MDRD) Non-Af 38 L BUN/Creatinine Ratio 29.2 H Glucose 216 H Calcium 9.4 Total Bilirubin 0.50 AST 28 ALT 44 Alkaline Phosphatase 67 Troponin I 0.748 H* Total Protein 6.4 Albumin 2.4 L Globulin 4.0 Albumin/Globulin Ratio 0.6 L Vancomycin Trough 14.6 COVID-19 (JET) POC Glucose 02/23/20 02/23/20 04:11 05:50 WBC RBC Hgb Hct MCV MCH MCHC RDW Std Deviation RDW Coeff of Юлия Plt Count MPV Immature Gran % (Auto) Neut % (Auto) Lymph % (Auto) [place] % (Auto) Eos % (Auto) Baso % (Auto) Absolute Neuts (auto) Absolute Lymphs (auto) Nucleated RBC % APTT 66.2 H D-Dimer Quant (PE/DVT) 1.55 H* Sodium Potassium Chloride Carbon Dioxide Anion Gap BUN Creatinine Estim Creat Clear Calc Est GFR (MDRD) Af Amer Est GFR (MDRD) Non-Af BUN/Creatinine Ratio Glucose Calcium Total Bilirubin AST ALT Alkaline Phosphatase Troponin I Total Protein Albumin Globulin Albumin/Globulin Ratio Vancomycin Trough COVID-19 (JET) POC Glucose 224 H Microbiology 02/19/20 19:00 Blood Culture (Wb) - Right Wrist Blood Culture - Preliminary No growth in 48 hours. 02/19/20 22:55 Sputum, Induced/Lukens Gram Stain - Final 02/19/20 22:55 Sputum, Induced/Lukens Respiratory Culture - Final 02/19/20 19:15 Blood Culture (Wb) - Anticubital Left Bacteria Detection (PCR) - Final Coag Negative Staph 02/19/20 19:15 Blood Culture (Wb) - Anticubital Left Blood Culture - Preliminary Coag Negative Staph Clinical Impression(s) from Imaging Studies Chest X-Ray 02/23/20 04:13 IMPRESSION: Pulmonary infiltration is slightly worsened from previous study. Central line is in stable position. Electronically Signed: Caesar Greer MD at 5:41 EDT , Service support , Medical Necessity - Tobacco Use Smoking Status: Heavy Smoker (>10/day) Tobacco Use: Cigarettes Assessment/Plan All Active Problems New onset of congestive heart failure (Acute) Elevated troponin I level (Acute) Respiratory failure with hypoxia (Acute) FREIDA (acute kidney injury) (Acute) Aortic valve stenosis (Acute) CHF (congestive heart failure) (Acute) Anemia (Acute) Sepsis (Acute) RECOMMENDATIONS: 1. Continue Airvo and wean FiO2 as tolerated. 2. Continue broad-spectrum antimicrobial coverage and empiric heparin infusion. 3. Continue with aggressive diuretic therapy 4. Continue bronchodilators. 5. Await repeat blood cultures 6. Continue appropriate ICU prophylaxis. IMPRESSIONS: 1. Acute combined respiratory failure Likely multifactorial with decompensated heart failure with pulmonary infectious etiologies contributing. The patient did require intubation, but later self extubated on the morning of February 21. Patient has required BiPAP versus Airvo throughout the evening and still has increased FiO2 requirements. Patient appears to have responded well to diuretic therapy yesterday. We will continue with this through the day today. No reason to continue with D-dimers. COVID testing has come back negative. 2. Septic shock Resolved. Most likely distributive (Septic) in nature. A component of his hypotension was also the consequence of the medication that was being utilized to sedate him while on the ventilator. The patient has since defervesced and has been weaned from vasopressor support. He is currently hemodynamically stable. Plan to continue current supportive measures along with broad-spectrum antimicrobials. Patient does have known aortic stenosis and has grown coag negative staph from his blood cultures. Cannot exclude an element of endocarditis. If repeat blood cultures are positive, may be necessary to proceed with a SANAM. 3. Acute kidney injury Most likely prerenal in etiology and related to ischemic ATN in the setting of numbers 1 and 2. Plan to continue current supportive measures. Continue to monitor urine output. There is no current indication for renal replacement therapy. Improvement following diuretic therapy is suggestive of prerenal etiology with decreased perfusion secondary to CHF. 4. Indeterminate cardiac enzymes/non-ST segment elevation W[place]/heart failure with preserved ejection fraction/aortic stenosis Most likely related to demand ischemia in the setting of numbers 1 and 2. We will continue with diuretic therapy. Cardiology has been consulted. Goal for -1 to 2 L by tomorrow. 5. Hypertension/hyperlipidemia/diabetes mellitus/anemia/GERD Complicates care, management, recovery and prognosis. Continue sliding scale insulin coverage. Physical therapy evaluation, once medically stabilized. TIME: 33 minutes of critical care time, independent of procedures, was spent addressing the patient's acute combined respiratory failure, multifactorial shock, acute kidney injury, troponin elevation, review of all data and collaboration with the care team. (6 AM to 7:20 AM) [id number] Critical care first hour
[2020-02-23] MEDS: Metoprolol Tartrate 50 MG Tablet PO ×2 (12:00→21:40)
[2020-02-23] MEDS: Furosemide 40 MG/4 ML Vial IV (12:00)
[2020-02-23] MEDS: Aspirin 81 MG TAB.CHEW PO (12:00)
[2020-02-23] MEDS: Allopurinol 300 MG Tablet PO (12:01)
--- NOTE | 2020-02-23 12:01 | PCM.PN.HOSP ---
Patient Problems: Active and Suspected Problems New onset of congestive heart failure (Acute) Elevated troponin I level (Acute) Respiratory failure with hypoxia (Acute) FREIDA (acute kidney injury) (Acute) Aortic valve stenosis (Acute) CHF (congestive heart failure) (Acute) Anemia (Acute) Sepsis (Acute) Reason for Visit: respiratory failure Subjective: Breathing well. Vitals/I&O's: Vital Signs Temp Pulse Resp BP Pulse Ox 37.4 C H 94 15 119/51 L 90 02/23/20 08:00 02/23/20 08:00 02/23/20 08:00 02/23/20 08:00 02/23/20 11:00 Oxygen Flow Rate (L/min) 8 Oxygen Delivery Method Nasal Cannula Weight: 82.6 kg Body Mass Index (BMI) 27.5 Intake and Output for Last 24 Hours 02/21/20 02/22/20 02/23/20 23:59 23:59 23:59 Intake Total 3157.18 / 3172.18 1597.08 / 1597.08 501.95 / 501.95 Output Total 1225 / 1225 3975 / 3975 500 / 500 Balance 1932.18 / 1947.18 -2377.92 / -2377.92 1.95 / 1.95 General: Alert, No apparent distress HEENT: Atraumatic, Normocephalic Oral: Moist Mucosa, No Gingival or Mucosal Lesions/ Ulcerations Neck: No Nodes, Trachea Midline Lungs: Clear to auscultation, Normal air movement, No rhonchi, No wheeze, No rales Cardiovascular: Regular rate, Regular Rhythm, Normal S1, Normal S2, - - 3/6 EULA Abdomen: Bowel Sounds Present, Soft, Non Tender, Non-Distended, No Hepato-splenomegaly Extremities: No edema, No Calf Tenderness Skin: No rashes, No breakdown Psych/Mental Status: Normal Affect, Appropriate Microbiology Past 72 Hours 02/21/20 07:55 Blood Culture (Wb) - Left Forearm Blood Culture - Preliminary No growth in 48 hours. 02/21/20 07:55 Blood Culture (Wb) - Central Line Blood Culture - Preliminary No growth in 48 hours. 02/19/20 19:00 Blood Culture (Wb) - Right Wrist Blood Culture - Preliminary No growth in 48 hours. 02/19/20 22:55 Sputum, Induced/Lukens Gram Stain - Final 02/19/20 22:55 Sputum, Induced/Lukens Respiratory Culture - Final 02/19/20 19:15 Blood Culture (Wb) - Anticubital Left Bacteria Detection (PCR) - Final Coag Negative Staph 02/19/20 19:15 Blood Culture (Wb) - Anticubital Left Blood Culture - Preliminary Coag Negative Staph Laboratory Results 02/22/20 13:17: POC Glucose 309 H 02/22/20 18:09: POC Glucose 301 H 02/23/20 00:24: POC Glucose 214 H 02/23/20 01:28: Vancomycin Trough 14.6 02/23/20 04:11: WBC 13.6 H, RBC 3.14 L, Hgb 9.5 L, Hct 29.4 L, MCV 93.6, MCH 30.3, MCHC 32.3, RDW Std Deviation 47.6 H, RDW Coeff of Юлия 14.2, Plt Count 274, MPV 11.0, Immature Gran % (Auto) 1.000 H, Neut % (Auto) 77.2 H, Lymph % (Auto) 11.1 L, [place] % (Auto) 10.1 H, Eos % (Auto) 0.4, Baso % (Auto) 0.2, Absolute Neuts (auto) 10.5 H, Absolute Lymphs (auto) 1.51, Nucleated RBC % 0 02/23/20 04:11: Sodium 142, Potassium 4.4, Chloride 112 H, Carbon Dioxide 25.0, Anion Gap 5, BUN 54 H, Creatinine 1.85 H, Estim Creat Clear Calc 34.92, Est GFR (MDRD) Af Amer 46 L, Est GFR (MDRD) Non-Af 38 L, BUN/Creatinine Ratio 29.2 H, Glucose 216 H, Calcium 9.4, Total Bilirubin 0.50, AST 28, ALT 44, Alkaline Phosphatase 67, Troponin I 0.748 H*, Total Protein 6.4, Albumin 2.4 L, Globulin 4.0, Albumin/Globulin Ratio 0.6 L 02/23/20 04:11: APTT 66.2 H, D-Dimer Quant (PE/DVT) 1.55 H* 02/23/20 05:50: POC Glucose 224 H Current Medications Acetaminophen (Tylenol Liquid) 650 mg GT Q6H PRN PRN PRN Reason: Pain Score 1-10/Temp > 100.7 F Albuterol/Ipratropium (Duoneb) 3 ml INHALATION Q6HWA.RT [facility] Last Admin: 02/22/20 18:29 Dose: 3 ml Documented by: Allopurinol (Zyloprim) 300 mg PO DAILY [facility] Aspirin (Aspirin, Baby) 81 mg PO 1000 [facility] Last Admin: 02/22/20 12:40 Dose: Not Given Documented by: Atorvastatin Calcium (Lipitor) 40 mg PO QHS [facility] Last Admin: 02/22/20 22:40 Dose: 40 mg Documented by: Dextrose (D50w Syringe) 0 gm IV X1 PRN; Protocol PRN Reason: Hypoglycemia Furosemide (Lasix) 40 mg IV DAILY [facility] Glucagon () 1 mg IM .X1 PRN PRN Reason: Hypoglycemia Heparin Sodium (Porcine) (Heparin Na) 0 unit IV UD PRN; Protocol Last Admin: 02/20/20 21:59 Dose: 1,000 unit Documented by: Heparin Sodium/Dextrose () 25,000 units in 250 mls @ 12 mls/hr IV .[id number] [facility]; Protocol Last Admin: 02/23/20 06:24 Dose: Not Given Documented by: Piperacillin Sod/Tazobactam (Sod 3.375 gm/ Sodium Chloride) 50 mls @ 12.5 mls/hr IV Q8 [facility] Last Infusion: 02/23/20 09:47 Dose: Infused Documented by: Sodium Chloride () 250 mls @ 15 mls/hr IV .[id number] PRN PRN Reason: Saline Flush Sodium Chloride () 250 mls @ 15 mls/hr IV .[id number] PRN PRN Reason: Additional IVPB Infusion Vancomycin IV Pharmacy to Dose (1 ea/ Sodium Chloride) 500 mls @ 250 mls/hr IV X1 PRN; Protocol PRN Reason: Rx to Dose Vancomycin HCl 750 mg/ Sodium (Chloride) 265 mls @ 250 mls/hr IV Q12H [facility] Last Infusion: 02/23/20 04:00 Dose: Infused Documented by: Insulin Human Lispro (Humalog Kwikpen (Bkc)) 0 unit SC ACHS [facility]; Protocol Metoprolol Tartrate (Lopressor (Beta Bismark)) 50 mg PO BID [facility] Last Admin: 02/22/20 22:40 Dose: 50 mg Documented by: Nitroglycerin (Nitrostat) 0.4 mg SUBLINGUAL Q5M PRN PRN Reason: CARDIAC/CHEST PAIN Ondansetron HCl (Zofran) 4 mg IV Q8H PRN PRN PRN Reason: NAUSEA/VOMITING Pantoprazole Sodium (Protonix) 20 mg PO DAILY [facility] Sodium Chloride () 10 - 40 ml IV UD PRN PRN Reason: SALINE FLUSH Last Admin: 02/23/20 01:24 Dose: 20 ml Documented by: STROKE Vital Signs/Narrative: Vital Signs Pulse Ox 02/23/20 11:00 90 02/23/20 08:59 94 Medical Necessity - Tobacco Use Smoking Status: Heavy Smoker (>10/day) Tobacco Use: Cigarettes Assessment/Plan All Active Problems New onset of congestive heart failure (Acute) Elevated troponin I level (Acute) Respiratory failure with hypoxia (Acute) FREIDA (acute kidney injury) (Acute) Aortic valve stenosis (Acute) CHF (congestive heart failure) (Acute) Anemia (Acute) Sepsis (Acute) 1. Acute hypoxic respiratory failure: improved Patient's status is rapidly gotten worse on admission. Intubated then self extubated COVID negative 2/2 CHF +/- pneumonia on pip/tazo and vanc 2.Acute HFpEF exacerbation: EF 50% Unclear what type at this time. Plan is to continue with IV furosemide, check echocardiogram, consult cardiology (discussed with Dr. Rodriguez). Check records from the [place] complicated by severe on furosemide IV 3. NSTEMI: on heparin gtt on ASA, metoprolol will require LHC at some point. May defer to having done at [place]. 4. 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 5. Diabetes mellitus type 2: A1c 7.4 We will hold on his oral agents. 6. Chronic kidney disease stage III: No baseline labs to compare to so this could be acute but I suspect is prime more chronic given patient's underlying diabetes and hypertension. 7. VTE prophylaxis: High risk. anticoagulated 8. Advanced care planning: Before the patient got worse, he stated he wished to be full CODE STATUS. Inpatient E&M: [id number] Subs Hosp L2
[2020-02-23] MEDS: Pantoprazole Sodium 20 MG Tablet PO (12:03)
[2020-02-23 12:26] LABS: Bedside Glucose 308 mg/dL (70-110)
--- NOTE | 2020-02-23 12:53 | NURSING ---
Called Nancy to update on status and that pt will be moving to PCU.
[2020-02-23] MEDS: Ipratropium/Albuterol Sulfate 3 ML AMPUL.NEB INHALATION ×2 (13:18→18:56)
--- NOTE | 2020-02-23 13:28 | CASEMGMT ---
This RN CM received message to call Bailey LOZANO at [facility] at the following number: [phone] ext [phone]. This RN CM attempted to reach Bailey without success at this time but message left on her voicemail to call this RN CM back when able. Jory LOZANO CM
[2020-02-23] MEDS: HEPARIN/D5w 25,000 UNITS 25,000 UNITS/250 ML IV.SOLN. 11 UNITS IV (14:08)
[2020-02-23 16:55] LABS: Bedside Glucose 231 mg/dL (70-110)
--- NOTE | 2020-02-23 18:02 | PN.CARD_ITS ---
Subjectve: The patient is now out of the ICU. He states he feels better overall. He has been able to maintain his oxygen saturation on nasal cannula. He denies any worsening chest discomfort, worsening breathing related issues, or recurrent peripheral pitting edema. Objective: Vital Signs Temp Pulse Resp BP Pulse Ox 98.2 F 65 20 H 126/56 H 96 02/23/20 16:12 02/23/20 16:12 02/23/20 16:12 02/23/20 16:12 02/23/20 16:12 Oxygen Flow Rate (L/min) 6 Oxygen Delivery Method Nasal Cannula Weight: 182 lb 1.629 oz Body Mass Index (BMI) 27.5 Intake and Output for Last 24 Hours 02/21/20 02/22/20 02/23/20 23:59 23:59 23:59 Intake Total 3157.18 / 3172.18 1597.08 / 1597.08 1950.90 / 1950.90 Output Total 1225 / 1225 3975 / 3975 1775 / 1775 Balance 1932.18 / 1947.18 -2377.92 / -2377.92 175.90 / 175.90 General: Awake, Alert, Oriented x 3, Cooperative, No Acute Distress HEENT: Atraumatic, Normocephalic, PERRL, EOMI, Sclera Non Icteric Oral: Moist Mucosa Neck: Supple, Good ROM, No JVD Lungs: Diminished Sunil Bases Cardiovascular: Regular Rhythm, Normal S1, Normal S2 Murmur Murmur: Grade 2/6, Harsh, Mid Systolic, LLSB, LVOT, Sternal [place] Abdomen: Bowel Sounds Present, Soft Extremities: No edema Psych/Mental Status: Appropriate 02/23/20 04:11: WBC 13.6 H, RBC 3.14 L, Hgb 9.5 L, Hct 29.4 L, MCV 93.6, MCH 30.3, MCHC 32.3, Plt Count 274, MPV 11.0, Immature Gran % (Auto) 1.000 H, Neut % (Auto) 77.2 H, Lymph % (Auto) 11.1 L, [place] % (Auto) 10.1 H, Eos % (Auto) 0.4, Baso % (Auto) 0.2, Absolute Neuts (auto) 10.5 H, Nucleated RBC % 0 02/23/20 04:11: Sodium 142, Potassium 4.4, Chloride 112 H, Carbon Dioxide 25.0, Anion Gap 5, BUN 54 H, Creatinine 1.85 H, Est GFR (MDRD) Af Amer 46 L, Est GFR (MDRD) Non-Af 38 L, BUN/Creatinine Ratio 29.2 H, Glucose 216 H, Calcium 9.4, Total Bilirubin 0.50, Troponin I 0.748 H* 02/23/20 04:11: APTT 66.2 H, D-Dimer Quant (PE/DVT) 1.55 H* Rhythm: Sinus rhythm; 1 approximate 6 beat wide-complex rhythm/tachycardia potentially compatible with nonsustained VT Chest x-ray: Question of increased pulmonary vascularity and/or infiltrate: Please see official report Medical Necessity - Tobacco Use Smoking Status: Heavy Smoker (>10/day) Tobacco Use: Cigarettes Assessment/Plan 1. Aortic Valve Stenosis The patient has been found by noninvasive studies to have findings compatible with severe aortic valve stenosis. This could contribute to his concern of chronic shortness of breath and dyspnea, development of CHF, and his subsequent clinical course superimposed upon separate concerns of an underlying infectious disease related issue. At the present time he will need, when he is able, future cardiovascular evaluation, if he so desires, which ideally would include an evaluation that would lead to aortic valve replacement. Such an evaluation would include studies such as diagnostic cardiac catheterization and a chest CT scan. However there is concern about proceeding in this manner at this time based upon his elevated temperature and his anemia and his acute renal insufficiency. Thus at the present time he would be followed and treated medically as best as possible. 2. CHF: acute diastolic mediated He does have a history and findings suggestive of underlying CHF. Again this could come from his aortic valve stenosis. His LV is wall motion and systolic function was reviewed. There is concern his CHF may be diastolic mediated. At the moment he does appear to be improved after he is undergone evaluation care including diuretic therapy. He will need continued monitoring of his CHF status. We will continue diuretic therapy. His renal function will need to be followed. 3. Abnormal TI levels He did have indeterminate troponin I levels. These may be a type II event secondary to supply demand mismatch brought on by his hypoxemia superimposed up on his aortic valve stenosis, etc. At some point in time, if and when he desires, and his renal function is stable, he should be considered for further evaluation with diagnostic cardiac catheterization to evaluate his coronary anatomy. This would also be used in preparation for future aortic valve replacement evaluation. 4. Hyperlipidemia He should continue risk factor evaluation care as deemed appropriate. 5. Hypertension His blood pressures will need to be followed. As they allow, as well as his renal function, aortic valve, etc. his medications can be adjusted in attempt to bring his blood pressures under better control. 6. Diabetes Mellitus He we will continue evaluation care per internal medicine. 7. Acute Renal Insufficiency He had the appearance of acute renal insufficiency. His baseline renal function is not clear. His creatinine level is improving. Will need to be followed as his clinical course continues. 8. Anemia He has been noted to be anemic upon arrival. His hemoglobin level appears to be somewhat improved. This will need to be followed. 9. Sepsis There were concerns of the patient had an underlying infectious disease etiology initially superimposed upon any cardiac condition. He did have 1+ blood culture. It is unclear whether it was a contaminant. Repeat blood cultures are pending. He had been treated medically. This has included antibiotic therapy. Again he appears to be improving overall with respect to his clinical status and hemodynamics. However, his temperature appears to be going up. He will need continued evaluation care by internal medicine, pulmonology/critical care medicine, and infectious disease as deemed appropriate. He will continue evaluation care per internal medicine and the pulmonology/critical care staff. This note was generated using a voice recognition system and there may be incorrect words, spelling or punctuation that were not noted when reviewing the office note prior to saving.
[2020-02-23] MEDS: Atorvastatin Calcium 40 MG Tablet PO (21:40)
[2020-02-23 22:00] LABS: Bedside Glucose 260 mg/dL (70-110)
[2020-02-24] VITALS (13 sets, daily range): BP systolic 115–133; BP diastolic 52–57; PULSE 54–72; RESP 12–18; TEMP 36.3–37.2; O2SAT 92–100
[2020-02-24] MEDS: 0.9% Saline Lock 10 ML Syringe IV ×2 (00:17→09:21)
[2020-02-24] MEDS: Ipratropium/Albuterol Sulfate 3 ML AMPUL.NEB INHALATION ×2 (06:32→13:08)
[2020-02-24] MEDS: Insulin Lispro 100 UNIT/ML INSULN.PEN SC ×3 (06:38→16:43)
[2020-02-24 06:46] LABS: Bedside Glucose 205 mg/dL (70-110)
[2020-02-24 08:03] LABS: Absolute Lymphocyte Count 1.77 X10^3/uL (0.83-4.51); Absolute Neutrophil Count 6.6 X10^3/uL (2.0-7.7); Basophil# 0.03 X10^3/uL; Basophil% 0.3 % (0-1); Eosinophil# 0.18 X10^3/uL; Eosinophils% 1.9 % (0-5); Hematocrit 24.3 % (40-54); Lymphocyte # 1.77 X10^3/ul (4.0); Lymphocyte % 18.3 % (19-41); Mean Corp Hgb Conc 32.9 g/dL (32-36); Mean Corpuscular Hgb 30.7 pg (27.0-32.0); Mean Corpuscular Volume 93.1 fL (80-94); Mean Platelet Vol. 10.8 fl (6.2-12.0); Monocyte% 10.3 % (0-10); NRBC Flagged by Analyzer 0 % (0-5); Neutrophil # 6.61 X10^3/uL (2.7-7.7); Neutrophil % 68.3 % (47-70); Platelet Count 232 K/mm3 (150-450); RBC Distribution Width CV 14.4 % (11.6-14.6); RBC Distribution Width SD 47.7 fl (35.1-43.9); Red Blood Count 2.61 M/mm3 (4.6-6.2); White Blood Count 9.7 K/mm3 (4.4-11.0)
--- NOTE | 2020-02-24 08:21 | PCM.PN.PUL ---
Patient Problems: Active and Suspected Problems New onset of congestive heart failure (Acute) Elevated troponin I level (Acute) Respiratory failure with hypoxia (Acute) FREIDA (acute kidney injury) (Acute) Aortic valve stenosis (Acute) CHF (congestive heart failure) (Acute) Anemia (Acute) Sepsis (Acute) Subjective: Patient transferred out of the intensive care unit yesterday. Patient appears to be doing well from his perspective. Patient did require BiPAP overnight, but is currently on 6 L nasal cannula. Patient is denying any productive cough, but did state that he drank a lot yesterday. - Physical Exam Vitals/I&O's: Vital Signs Temp Pulse Resp BP Pulse Ox 36.3 C L 68 12 115/57 L 100 02/24/20 03:27 02/24/20 06:49 02/24/20 03:27 02/24/20 03:27 02/24/20 03:27 Oxygen Flow Rate (L/min) 6 Oxygen Delivery Method Bi-pap Weight: 85.3 kg Body Mass Index (BMI) 27.5 Intake and Output for Last 24 Hours 02/22/20 02/23/20 02/24/20 23:59 23:59 23:59 Intake Total 1597.08 / 1597.08 2209.25 / 2209.25 315.00 / 315.00 Output Total 3975 / 3975 2125 / 2125 300 / 300 Balance -2377.92 / -2377.92 84.25 / 84.25 15.00 / 15.00 General: Alert, Oriented x3, Cooperative, - - Mild conversational dyspnea. Appears older than stated age. HEENT: Atraumatic, PERRLA, EOMI, Normocephalic, - - No scleral icterus or injection noted Oral: Moist Mucosa, No Gingival or Mucosal Lesions/ Ulcerations Neck: Supple, No Nodes, Trachea Midline, JVD, Right Lungs: No rhonchi, No wheeze, Diminished, Rales, - - Symmetric expansion. No dullness to percussion. Cardiovascular: Regular rate, Regular Rhythm, Normal S1, Normal S2, No murmurs, No rub noted, No Gallop Abdomen: Bowel Sounds Present, Soft, Non Tender, Non-Distended Extremities: No clubbing, No cyanosis, Edema - Trace lower extremity Skin: - - No change compared to yesterday Musculoskeletal: No Tenderness to Palpation of Joints or Extremities Lymphatic: No Cervical, Supraclavicular, or Inguinal Adenopathy Neurological: Cranial nerves II-XII grossly intact, Neuro grossly intact, Motor Exam 5/5 strength throughout Psych/Mental Status: Alert and oriented to time, place, person, mood and affect Microbiology Past 72 Hours 02/21/20 07:55 Blood Culture (Wb) - Left Forearm Blood Culture - Preliminary No growth in 48 hours. 02/21/20 07:55 Blood Culture (Wb) - Central Line Blood Culture - Preliminary No growth in 48 hours. 02/19/20 19:00 Blood Culture (Wb) - Right Wrist Blood Culture - Preliminary No growth in 48 hours. 02/19/20 22:55 Sputum, Induced/Lukens Gram Stain - Final 02/19/20 22:55 Sputum, Induced/Lukens Respiratory Culture - Final 02/19/20 19:15 Blood Culture (Wb) - Anticubital Left Bacteria Detection (PCR) - Final Coag Negative Staph 02/19/20 19:15 Blood Culture (Wb) - Anticubital Left Blood Culture - Preliminary Coag Negative Staph Laboratory Results 02/23/20 12:20: POC Glucose 308 H 02/23/20 16:29: POC Glucose 231 H 02/23/20 21:43: POC Glucose 260 H 02/24/20 06:29: POC Glucose 205 H 02/24/20 07:48: WBC 9.7, RBC 2.61 L, Hgb 8.0 L, Hct 24.3 L, MCV 93.1, MCH 30.7, MCHC 32.9, RDW Std Deviation 47.7 H, RDW Coeff of Юлия 14.4, Plt Count 232, MPV 10.8, Immature Gran % (Auto) 0.900, Neut % (Auto) 68.3, Lymph % (Auto) 18.3 L, [place] % (Auto) 10.3 H, Eos % (Auto) 1.9, Baso % (Auto) 0.3, Absolute Neuts (auto) 6.6, Absolute Lymphs (auto) 1.77, Nucleated RBC % 0 02/24/20 07:48: Sodium Pending, Potassium Pending, Chloride Pending, Carbon Dioxide Pending, Anion Gap Pending, BUN Pending, Creatinine Pending, Est GFR (MDRD) Af Amer Pending, Est GFR (MDRD) Non-Af Pending, BUN/Creatinine Ratio Pending, Glucose Pending, Calcium Pending, Total Bilirubin Pending, AST Pending, ALT Pending, Alkaline Phosphatase Pending, Troponin I Pending, Total Protein Pending, Albumin Pending 02/24/20 07:48: APTT Pending Current Medications Acetaminophen (Tylenol Liquid) 650 mg GT Q6H PRN PRN PRN Reason: Pain Score 1-10/Temp > 100.7 F Albuterol/Ipratropium (Duoneb) 3 ml INHALATION Q6HWA.RT [facility] Last Admin: 02/24/20 06:32 Dose: 3 ml Documented by: Allopurinol (Zyloprim) 300 mg PO DAILY [facility] Last Admin: 02/23/20 12:01 Dose: 300 mg Documented by: Aspirin (Aspirin, Baby) 81 mg PO 1000 [facility] Last Admin: 02/23/20 12:00 Dose: 81 mg Documented by: Atorvastatin Calcium (Lipitor) 40 mg PO QHS [facility] Last Admin: 02/23/20 21:40 Dose: 40 mg Documented by: Dextrose (D50w Syringe) 0 gm IV X1 PRN; Protocol PRN Reason: Hypoglycemia Furosemide (Lasix) 40 mg IV DAILY [facility] Last Admin: 02/23/20 12:00 Dose: 40 mg Documented by: Glucagon () 1 mg IM .X1 PRN PRN Reason: Hypoglycemia Heparin Sodium (Porcine) (Heparin Na) 0 unit IV UD PRN; Protocol Last Admin: 02/20/20 21:59 Dose: 1,000 unit Documented by: Heparin Sodium/Dextrose () 25,000 units in 250 mls @ 12 mls/hr IV .[id number] [facility]; Protocol Last Infusion: 02/23/20 23:59 Dose: 1,100 units/hr, 11 mls/hr Documented by: Piperacillin Sod/Tazobactam (Sod 3.375 gm/ Sodium Chloride) 50 mls @ 12.5 mls/hr IV Q8 [facility] Last Admin: 02/24/20 06:36 Dose: 12.5 mls/hr Documented by: Sodium Chloride () 250 mls @ 15 mls/hr IV .[id number] PRN PRN Reason: Saline Flush Sodium Chloride () 250 mls @ 15 mls/hr IV .[id number] PRN PRN Reason: Additional IVPB Infusion Vancomycin IV Pharmacy to Dose (1 ea/ Sodium Chloride) 500 mls @ 250 mls/hr IV X1 PRN; Protocol PRN Reason: Rx to Dose Vancomycin HCl 750 mg/ Sodium (Chloride) 265 mls @ 250 mls/hr IV Q12H [facility] Last Infusion: 02/24/20 03:35 Dose: Infused Documented by: Insulin Human Lispro (Humalog Kwikpen (Bkc)) 0 unit SC ACHS [facility]; Protocol Last Admin: 02/24/20 06:38 Dose: 4 units Documented by: Metoprolol Tartrate (Lopressor (Beta Bism[place])) 50 mg PO BID [facility] Last Admin: 02/23/20 21:40 Dose: 50 mg Documented by: Nitroglycerin (Nitrostat) 0.4 mg SUBLINGUAL Q5M PRN PRN Reason: CARDIAC/CHEST PAIN Ondansetron HCl (Zofran) 4 mg IV Q8H PRN PRN PRN Reason: NAUSEA/VOMITING Pantoprazole Sodium (Protonix) 20 mg PO DAILY [facility] Last Admin: 02/23/20 12:03 Dose: 20 mg Documented by: Sodium Chloride () 10 - 40 ml IV UD PRN PRN Reason: SALINE FLUSH Last Admin: 02/24/20 00:17 Dose: 10 ml Documented by: Medical Necessity - Tobacco Use Smoking Status: Heavy Smoker (>10/day) Tobacco Use: Cigarettes Assessment/Plan All Active Problems New onset of congestive heart failure (Acute) Elevated troponin I level (Acute) Respiratory failure with hypoxia (Acute) FREIDA (acute kidney injury) (Acute) Aortic valve stenosis (Acute) CHF (congestive heart failure) (Acute) Anemia (Acute) Sepsis (Acute) RECOMMENDATIONS: 1. Continue Airvo and wean FiO2 as tolerated. 2. Continue broad-spectrum antimicrobial coverage and empiric heparin infusion. 3. Increase diuretic therapy 4. Continue bronchodilators. 5. Await repeat blood cultures 6. Continue appropriate ICU prophylaxis. IMPRESSIONS: 1. Acute combined respiratory failure Likely multifactorial with decompensated heart failure with pulmonary infectious etiologies contributing. The patient did require intubation, but later self extubated on the morning of February 21. Patient appears to be doing okay at this time, but still requiring significant oxygen requirements to maintain appropriate saturations. Recommend increasing diuretic therapy. Await chemistries this morning to see if potassium supplementation will be required. 2. Septic shock Resolved. Most likely distributive (Septic) in nature. A component of his hypotension was also the consequence of the medication that was being utilized to sedate him while on the ventilator. The patient has since defervesced and has been weaned from vasopressor support. He is currently hemodynamically stable. Plan to continue current supportive measures along with broad-spectrum antimicrobials. Patient does have known aortic stenosis and has grown coag negative staph from his blood cultures. Cannot exclude an element of endocarditis. Repeat blood cultures are negative, so it is likely not necessary to proceed with a SANAM from my perspective 3. Acute kidney injury Labs currently pending. Most likely prerenal in etiology and related to ischemic ATN in the setting of numbers 1 and 2. Plan to continue current supportive measures. Continue to monitor urine output. There is no current indication for renal replacement therapy. Improvement following diuretic therapy is suggestive of prerenal etiology with decreased perfusion secondary to CHF. 4. Indeterminate cardiac enzymes/non-ST segment elevation CO/heart failure with preserved ejection fraction/aortic stenosis Most likely related to demand ischemia in the setting of numbers 1 and 2. We will continue with diuretic therapy. Cardiology has been consulted. Goal for -1 to 2 L by tomorrow. 5. Hypertension/hyperlipidemia/diabetes mellitus/anemia/GERD Complicates care, management, recovery and prognosis. Continue sliding scale insulin coverage. Physical therapy evaluation, once medically stabilized. Inpatient E&M: [id number] [facility] Hosp L3
--- NOTE | 2020-02-24 08:41 | PN_ITS ---
Patient Problems: Active and Suspected Problems New onset of congestive heart failure (Acute) Elevated troponin I level (Acute) Respiratory failure with hypoxia (Acute) FREIDA (acute kidney injury) (Acute) Aortic valve stenosis (Acute) CHF (congestive heart failure) (Acute) Anemia (Acute) Sepsis (Acute) Reason for Visit: CHF Subjective: No new issues. Still requiring 6 liters of oxygen. Vitals/I&O's: Vital Signs Temp Pulse Resp BP Pulse Ox 36.3 C L 68 18 133/56 H 95 02/24/20 08:36 02/24/20 08:36 02/24/20 08:36 02/24/20 08:36 02/24/20 08:36 Oxygen Flow Rate (L/min) 6 Oxygen Delivery Method Nasal Cannula Weight: 85.3 kg Body Mass Index (BMI) 27.5 Intake and Output for Last 24 Hours 02/22/20 02/23/20 02/24/20 23:59 23:59 23:59 Intake Total 1597.08 / 1597.08 2209.25 / 2209.25 315.00 / 315.00 Output Total 3975 / 3975 2125 / 2125 300 / 300 Balance -2377.92 / -2377.92 84.25 / 84.25 15.00 / 15.00 General: Alert, No apparent distress, - - disshevled HEENT: Atraumatic, Normocephalic Oral: Moist Mucosa, No Gingival or Mucosal Lesions/ Ulcerations Neck: No Nodes, Trachea Midline Lungs: Clear to auscultation, Normal air movement, No rhonchi, No wheeze, No rales Cardiovascular: Regular rate, Regular Rhythm, Normal S1, Normal S2, Murmur - 2/6 EULA Abdomen: Bowel Sounds Present, Soft, Non Tender, Non-Distended, No Hepato- splenomegaly Extremities: No edema, No Calf Tenderness Skin: No rashes, No breakdown Musculoskeletal: No Tenderness to Palpation of Joints or Extremities, No Muscle Wasting Psych/Mental Status: Normal Affect, Appropriate Microbiology Past 72 Hours 02/21/20 07:55 Blood Culture (Wb) - Left Forearm Blood Culture - Preliminary No growth in 48 hours. 02/21/20 07:55 Blood Culture (Wb) - Central Line Blood Culture - Preliminary No growth in 48 hours. 02/19/20 19:00 Blood Culture (Wb) - Right Wrist Blood Culture - Preliminary No growth in 48 hours. 02/19/20 22:55 Sputum, Induced/Lukens Gram Stain - Final 02/19/20 22:55 Sputum, Induced/Lukens Respiratory Culture - Final 02/19/20 19:15 Blood Culture (Wb) - Anticubital Left Bacteria Detection (PCR) - Final Coag Negative Staph 02/19/20 19:15 Blood Culture (Wb) - Anticubital Left Blood Culture - Preliminary Coag Negative Staph Laboratory Results 02/23/20 12:20: POC Glucose 308 H 02/23/20 16:29: POC Glucose 231 H 02/23/20 21:43: POC Glucose 260 H 02/24/20 06:29: POC Glucose 205 H 02/24/20 07:48: WBC 9.7, RBC 2.61 L, Hgb 8.0 L, Hct 24.3 L, MCV 93.1, MCH 30.7, MCHC 32.9, RDW Std Deviation 47.7 H, RDW Coeff of Юлия 14.4, Plt Count 232, MPV 10.8, Immature Gran % (Auto) 0.900, Neut % (Auto) 68.3, Lymph % (Auto) 18.3 L, Harney % (Auto) 10.3 H, Eos % (Auto) 1.9, Baso % (Auto) 0.3, Absolute Neuts (auto) 6.6, Absolute Lymphs (auto) 1.77, Nucleated RBC % 0 02/24/20 07:48: Sodium Pending, Potassium Pending, Chloride Pending, Carbon Dioxide Pending, Anion Gap Pending, BUN Pending, Creatinine Pending, Est GFR (MDRD) Af Amer Pending, Est GFR (MDRD) Non-Af Pending, BUN/Creatinine Ratio Pending, Glucose Pending, Calcium Pending, Total Bilirubin Pending, AST Pending, ALT Pending, Alkaline Phosphatase Pending, Troponin I Pending, Total Protein Pending, Albumin Pending 02/24/20 07:48: APTT Pending Current Medications Acetaminophen (Tylenol Liquid) 650 mg GT Q6H PRN PRN PRN Reason: Pain Score 1-10/Temp > 100.7 F Albuterol/Ipratropium (Duoneb) 3 ml INHALATION Q6HWA.RT ALO Last Admin: 02/24/20 06:32 Dose: 3 ml Documented by: Allopurinol (Zyloprim) 300 mg PO DAILY [facility] Last Admin: 02/23/20 12:01 Dose: 300 mg Documented by: Aspirin (Aspirin, Baby) 81 mg PO 1000 ALO Last Admin: 02/23/20 12:00 Dose: 81 mg Documented by: Atorvastatin Calcium (Lipitor) 40 mg PO QHS [facility] Last Admin: 02/23/20 21:40 Dose: 40 mg Documented by: Dextrose (D50w Syringe) 0 gm IV X1 PRN; Protocol PRN Reason: Hypoglycemia Furosemide (Lasix) 40 mg IV BID@1000,1800 ALO Glucagon () 1 mg IM .X1 PRN PRN Reason: Hypoglycemia Heparin Sodium (Porcine) (Heparin Na) 0 unit IV UD PRN; Protocol Last Admin: 02/20/20 21:59 Dose: 1,000 unit Documented by: Heparin Sodium/Dextrose () 25,000 units in 250 mls @ 12 mls/hr IV .[id number] [facility]; Protocol Last Infusion: 02/23/20 23:59 Dose: 1,100 units/hr, 11 mls/hr Documented by: Piperacillin Sod/Tazobactam (Sod 3.375 gm/ Sodium Chloride) 50 mls @ 12.5 mls/hr IV Q8 [facility] Last Admin: 02/24/20 06:36 Dose: 12.5 mls/hr Documented by: Sodium Chloride () 250 mls @ 15 mls/hr IV .[id number] PRN PRN Reason: Saline Flush Sodium Chloride () 250 mls @ 15 mls/hr IV .[id number] PRN PRN Reason: Additional IVPB Infusion Vancomycin IV Pharmacy to Dose (1 ea/ Sodium Chloride) 500 mls @ 250 mls/hr IV X1 PRN; Protocol PRN Reason: Rx to Dose Vancomycin HCl 750 mg/ Sodium (Chloride) 265 mls @ 250 mls/hr IV Q12H [facility] Last Infusion: 02/24/20 03:35 Dose: Infused Documented by: Insulin Human Lispro (Humalog Kwikpen (Bkc)) 0 unit SC ACHS [facility]; Protocol Last Admin: 02/24/20 06:38 Dose: 4 units Documented by: Metoprolol Tartrate (Lopressor (Beta Bismark)) 50 mg PO BID [facility] Last Admin: 02/23/20 21:40 Dose: 50 mg Documented by: Nitroglycerin (Nitrostat) 0.4 mg SUBLINGUAL Q5M PRN PRN Reason: CARDIAC/CHEST PAIN Ondansetron HCl (Zofran) 4 mg IV Q8H PRN PRN PRN Reason: NAUSEA/VOMITING Pantoprazole Sodium (Protonix) 20 mg PO DAILY [facility] Last Admin: 02/23/20 12:03 Dose: 20 mg Documented by: Sodium Chloride () 10 - 40 ml IV UD PRN PRN Reason: SALINE FLUSH Last Admin: 02/24/20 00:17 Dose: 10 ml Documented by: STROKE Vital Signs/Narrative: Vital Signs Temp Pulse Resp BP Pulse Ox 02/24/20 08:36 36.3 C L 68 18 133/56 H 95 02/24/20 06:49 68 Medical Necessity - Tobacco Use Smoking Status: Heavy Smoker (>10/day) Tobacco Use: Cigarettes Assessment/Plan All Active Problems New onset of congestive heart failure (Acute) Elevated troponin I level (Acute) Respiratory failure with hypoxia (Acute) FREIDA (acute kidney injury) (Acute) Aortic valve stenosis (Acute) CHF (congestive heart failure) (Acute) Anemia (Acute) Sepsis (Acute) 1. Acute hypoxic respiratory failure: * improved * Patient's status is rapidly gotten worse on admission. Intubated then self extubated * COVID negative * 2/2 CHF +/- pneumonia * on pip/tazo and vanc 2.Acute HFpEF exacerbation: * EF 50% * complicated by severe * on furosemide IV 3. NSTEMI: * on heparin gtt * on ASA, metoprolol * will require LHC at some point. May defer to having done at [facility]. 4. Shock * septic v other * off pressors * NOTEREADER on 1 blood culture from the , repeat cultures on the , so far negative. 5. Severe aortic stenosis * likely etiology of respiratory failure * DW Dr. Rodriguez, pt would need a valve replacement (TAVR v open), but would require a LHC beforehand 6. Diabetes mellitus type 2: * A1c 7.4 * We will hold on his oral agents. 6. Chronic kidney disease stage III: * No baseline labs to compare to so this could be acute but I suspect is prime more chronic given patient's underlying diabetes and hypertension. * Creatinine up slightly 7. VTE prophylaxis: * High risk. anticoagulated 8. Advanced care planning: * Before the patient got worse, he stated he wished to be full CODE STATUS. Patient prefers to have his cardiac work-up performed at the [facility]. Discussed with Dr. Rodriguez who advised patient be transferred to a facility where he could IV valve replacement as ultimately this could not be what he requires. [facility]. [facility] with the [facility] and the patient does not have travel benefits and so would be responsible for the ground transfer and he may also be responsible for an admission fee which is income based. Discussed hank with the charge nurse who will confer with case management about what those cost would be in to see if the patient would be willing to pay for those. Greater than 35 minutes of which greater than 50% of time was coronation patient's care about potential transfer to the [facility]. Inpatient E&M: [id number] [facility] L3
[2020-02-24 08:42] LABS: ALB/GLOB Ratio 0.6 RATIO (0.9-2.4); AST(SGOT) 28 U/L (15-37); Alanine Aminotransfer ALT/SGPT 46 U/L (16-61); Albumin, Serum 2.1 g/dL (3.2-5.0); Alkaline Phosphatase 51 U/L (45-117); Anion Gap 7 (5-15); BUN 62 mg/dL (7-18); BUN/Creat Ratio 30.2 RATIO (10-20); Chloride 112 mmol/L (98-107); Creatinine, Serum 2.05 mg/dL (0.70-1.30); EST Glomerular Filtration Rate 34 mL/min (>60); Est Glom Filt Rate - Afr Amer 41 mL/min (>60); Estimated Creatinine Clearance 31.51 ml/min; Globulin 3.7 g/dL (2.2-4.2); Glucose 188 mg/dL (74-106); Potassium 3.8 mmol/L (3.5-5.1); Protein, Total 5.8 g/dL (6.4-8.2); Sodium Level 143 mmol/L (136-145)
[2020-02-24 09:09] LABS: Partial Thromboplast Time 55.8 Seconds (24.1-36.2)
[2020-02-24] MEDS: Allopurinol 300 MG Tablet PO (09:20)
[2020-02-24] MEDS: Pantoprazole Sodium 20 MG Tablet PO (09:20)
[2020-02-24] MEDS: Aspirin 81 MG TAB.CHEW PO (09:20)
[2020-02-24] MEDS: Metoprolol Tartrate 50 MG Tablet PO (09:20)
[2020-02-24] MEDS: Furosemide 40 MG/4 ML Vial IV (09:21)
--- NOTE | 2020-02-24 09:33 | PCM.PN.CARD ---
Subjectve: The patient is awake and alert. He denies any ongoing chest discomfort. He states he has been doing reasonably well with his breathing on his O2 nasal cannula although he knows that his requirements were increased this morning. He states he had an episode of epistaxis this morning that was thought related to his O2 nasal cannula. Objective: Vital Signs Temp Pulse Resp BP Pulse Ox 97.4 F L 68 18 133/56 H 95 02/24/20 08:36 02/24/20 09:20 02/24/20 08:36 02/24/20 08:36 02/24/20 08:36 Oxygen Flow Rate (L/min) 6 Oxygen Delivery Method Nasal Cannula Weight: 188 lb 0.869 oz Body Mass Index (BMI) 27.5 Intake and Output for Last 24 Hours 02/22/20 02/23/20 02/24/20 23:59 23:59 23:59 Intake Total 1597.08 / 1597.08 2209.25 / 2209.25 315.00 / 315.00 Output Total 3975 / 3975 2125 / 2125 300 / 300 Balance -2377.92 / -2377.92 84.25 / 84.25 15.00 / 15.00 General: Awake, Alert, Oriented x 3, Cooperative HEENT: Atraumatic, Normocephalic, PERRL, EOMI, Sclera Non Icteric Oral: Moist Mucosa Neck: Supple, Good ROM, No JVD Lungs: Diminished Sunil Bases Cardiovascular: Regular Rhythm, Normal S1, Dimished A2 Murmur Murmur: Grade 2/6, Harsh, Mid Systolic, LLSB, LVOT, Sternal Notch Vascular: Radiation of Murmur to Carotid Arteries Abdomen: Bowel Sounds Present, Soft, Non Tender Extremities: No Cyanosis, No Clubbing, No edema Psych/Mental Status: Appropriate 02/24/20 07:48: WBC 9.7, RBC 2.61 L, Hgb 8.0 L, Hct 24.3 L, MCV 93.1, MCH 30.7, MCHC 32.9, Plt Count 232, MPV 10.8, Immature Gran % (Auto) 0.900, Neut % (Auto) 68.3, Lymph % (Auto) 18.3 L, Christian % (Auto) 10.3 H, Eos % (Auto) 1.9, Baso % (Auto) 0.3, Absolute Neuts (auto) 6.6, Nucleated RBC % 0 02/24/20 07:48: Sodium 143, Potassium 3.8, Chloride 112 H, Carbon Dioxide 24.0, Anion Gap 7, BUN 62 H, Creatinine 2.05 H, Est GFR (MDRD) Af Amer 41 L, Est GFR (MDRD) Non-Af 34 L, BUN/Creatinine Ratio 30.2 H, Glucose 188 H, Calcium 9.0, Total Bilirubin 0.30, Troponin I 0.216 H 02/24/20 07:48: APTT 55.8 H Rhythm: Sinus rhythm Medical Necessity - Tobacco Use Smoking Status: Heavy Smoker (>10/day) Tobacco Use: Cigarettes Assessment/Plan 1. Aortic Valve Stenosis The patient has been found by noninvasive studies to have findings compatible with severe aortic valve stenosis. This could contribute to his concern of chronic shortness of breath and dyspnea, development of CHF, and his subsequent clinical course superimposed upon separate concerns of an underlying infectious disease related issue. The patient does appear to be agreeable with proceeding with additional cardiovascular evaluation at this time. Ideally this would include diagnostic cardiac catheterization to assess his coronary anatomy. This would be in preparation for an upcoming aortic valve procedure. However, cardiac catheterization will need to be considered when he is able from a pulmonary standpoint, hematologic standpoint, renal standpoint, infectious disease standpoint, etc. Thus at the present time he would be followed and treated medically as best as possible. 2. CHF: acute diastolic mediated He does have a history and findings suggestive of underlying CHF. Again this could come from his aortic valve stenosis. His LV is wall motion and systolic function was reviewed. There is concern his CHF may be diastolic mediated. At the moment he does appear to be improved after he is undergone evaluation care including diuretic therapy. He will need continued monitoring of his CHF status. We will continue diuretic therapy. However his diuretics may have to be further adjusted based upon his now increasing creatinine level. 3. Abnormal TI levels He did have indeterminate troponin I levels. These may be a type II event secondary to supply demand mismatch brought on by his hypoxemia superimposed upon his aortic valve stenosis, etc. Again, when able, he is willing to proceed with evaluation with diagnostic cardiac catheterization to further assess his coronary anatomy. 4. Hyperlipidemia He should continue risk factor evaluation care as deemed appropriate. 5. Hypertension His blood pressures will need to be followed. As they allow, as well as his renal function, aortic valve, etc. his medications can be adjusted in attempt to bring his blood pressures under better control. 6. Diabetes Mellitus He we will continue evaluation care per internal medicine. 7. Acute Renal Insufficiency He had the appearance of acute renal insufficiency. His creatinine has started to increase again. Thus at the present time his diuretics will be adjusted. He will need to be followed with respect to his volume status and his creatinine level. 8. Anemia He has been noted to be anemic upon arrival. His hemoglobin level improved and now is declining again. At the moment his IV heparin will be discontinued. He may need alternative forms of DVT prophylaxis. His H&H will need to be followed. 9. Sepsis There were concerns of the patient had an underlying infectious disease etiology initially superimposed upon any cardiac condition. He did have 1+ blood culture. It is unclear whether it was a contaminant. His repeat blood cultures remain negative at this time. He was noted to have an increase in his temperature yesterday. There is some question as to the accuracy between the various temperature monitoring devices that were used to check his temperature. Today his temperature is down. He had been treated medically. This has included antibiotic therapy. Again he appears to be improving overall with respect to his clinical status and hemodynamics. He will need continued evaluation care by internal medicine, pulmonology/critical care medicine, and infectious disease as deemed appropriate. Overall, the present time, from a cardiovascular standpoint, the man would be for continued conservative medical management/support as he recuperates from his acute condition with further evaluation care as needed for his conditions such as pulmonary, hematologic/anemia, renal insufficiency, and infectious disease, with future plans when able to proceed with evaluation such as diagnostic cardiac catheterization to evaluate his coronary anatomy, and future plans for consideration for aortic valve replacement either catheter-based or surgical based. The patient still has concerns about his finances. He does request that the [facility] be contacted regarding his issue. He has stated that he would feel more financially secure if he was undergoing evaluation and care at the [facility], etc. The patient's case has been discussed and reviewed with the patient as well as Dr. Goodman. This note was generated using a voice recognition system and there may be incorrect words, spelling or punctuation that were not noted when reviewing the office note prior to saving.
--- NOTE | 2020-02-24 11:04 | CASEMGMT ---
Addendum entered by Sunitha Weldon 02/24/20 15:17: [facility] and report be called when pt leaves for transport. Viv, U container finisher, updated on all, voices understanding. Jory RN CM Addendum entered by Sunitha Weldon 02/24/20 15:06: Call back from Aileen at [facility] and she states that their network analyst would like to speak with Dr. Rodriguez at this time. Dr. Rodriguez aware and states he can speak with network analyst at this time. Dr. Rodriguez's cell provided to Aileen at this time so that she can call him and then conference call with their network analyst. Dr. Rodriguez then notified this RN CM that pt has been accepted and they will be calling [facility] to arrange transfer for pt at this time. Pt and Dr. Goodman updated on all at this time, voice understanding. Pt voices no further questions/concerns/needs at this time. Pt aware that he will be notified what time transport is set up for and that consent to transfer will need signed, voices understanding. Jory RN CM Addendum entered by Sunitha Weldon 02/24/20 13:08: [id number] Dr. Rodriguez came out of room and states is willing to transfer to [facility] at this time. He states that pt states concerns about 'needing to be up there so that it will be covered.' Pt states that someone called him from [facility] earlier and told him they have a bed available. Call to Aileen at [facility] transfer center and she is aware of pt's need for heart cath and future aortic valve replacement needed per Dr. Bales note and continued care at the [facility]. She states she will get old of cardiology subscription clerk and then call this RN CM back. Aileen provided with needed info at this time. She states she did not call pt in regards to bed but will check the chart for any notes. Dr. Goodman updated on all at this time, voices understanding. Jory RN CM Original Note: Per July LOZANO, pt is interested in going to [facility] for his cardiac work up. Dr. Goodman called the [facility] transfer center and pt does not have travel benefits so he will have to cover the transport to the [facility] and there also may be an admission fee at this time. Call to pt's room and he is updated on all at this time. Pt will not make a definitive decision on whether he wants to transfer or not at this time. Pt states he would like to wait until he speaks with Dr. Rodriguez again later today. CM to f/u. Jory LOZANO CM
[2020-02-24 11:36] LABS: Bedside Glucose 216 mg/dL (70-110)
--- NOTE | 2020-02-24 15:37 | PCM.DC.SUM ---
Discharge Date and Diagnosis - Problem List Patient Problems: Active and Suspected Problems New onset of congestive heart failure (Acute) Elevated troponin I level (Acute) Respiratory failure with hypoxia (Acute) FREIDA (acute kidney injury) (Acute) Aortic valve stenosis (Acute) CHF (congestive heart failure) (Acute) Anemia (Acute) Sepsis (Acute) Date of Admission: 02/19/20 Date of Discharge: 02/24/20 - Primary Discharge Diagnosis Active and Suspected Problems 1. Acute hypoxic respiratory failure: improved Patient's status is rapidly gotten worse on admission. Intubated then self extubated COVID negative 2/2 CHF +/- pneumonia on pip/tazo and vanc 2.Acute HFpEF exacerbation: EF 50% complicated by severe on furosemide IV 3. NSTEMI: on heparin gtt on ASA, metoprolol will require LHC at some point. May defer to having done at [facility]. 4. 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 5. Severe aortic stenosis likely etiology of respiratory failure DW Dr. Rodriguez, pt would need a valve replacement (TAVR v open), but would require a LHC beforehand 6. Diabetes mellitus type 2: A1c 7.4 We will hold on his oral agents. 6. Chronic kidney disease stage III: No baseline labs to compare to so this could be acute but I suspect is prime more chronic given patient's underlying diabetes and hypertension. Creatinine up slightly - Secondary Discharge Diagnosis Chronic Problems Hypertension (Chronic) Type 2 diabetes mellitus (Chronic) HLD (hyperlipidemia) (Chronic) Hospital Course and Treatment Imaging Results: Clinical Impression(s) from Imaging Studies Chest X-Ray 02/19/20 15:22 IMPRESSION: Findings suggestive of scarring at the lung bases with superimposed bibasilar atelectasis and mild degree of CHF. Blunting of both costophrenic angles slightly worse on the right side. Electronically Signed: Rafael Camilo, at 15:37 EDT , Service support , Chest X-Ray 02/19/20 18:34 Chest X-Ray 02/20/20 00:44 IMPRESSION: Ill-defined subpleural groundglass opacities are seen more prominent in the lung bases , may represent atypical pneumonia or viral pneumonia (COVID-19 ?). Electronically Signed: Johnnie Vaughan, at 1:31 EDT Tel , Service support , KUB X-Ray 02/20/20 04:50 IMPRESSION: An OG tube is seen stent is in the gastric lumen is in good position. Electronically Signed: Johnnie Vaughan, at 5:20 EDT Tel , Service support , Chest X-Ray 02/23/20 04:13 IMPRESSION: Pulmonary infiltration is slightly worsened from previous study. Central line is in stable position. Electronically Signed: Caesar Greer MD at 5:41 EDT , Service support , [facility] [place] Cardiology Operations: None Procedures: 2-D Echocardiogram - Mild segmental systolic dysfunction (see wall motion). The estimated ejection fraction is 50 %. The left atrium is mildly enlarged. There is mild mitral annular calcification. Mild (1+) mitral valve insufficiency. Trivial tricuspid valve insufficiency. Severe aortic stenosis. Mild (1+) aortic valve insufficiency. Calcified aortic root. Unable to estimate RV systolic pressure/pulmonary artery pressure due to technically difficult study. There is evidence of diastolic dysfunction., Intubation Summary of Care Provided: The patient is a 74 year old M Alexey with a worsening shortness of breath. While in the emergency room, the patient did get worse and was recommended the patient be intubated because of the concern for this being potentially COVID-19. Patient eventually did extubate himself and eventually did come back negative for COVID-19. Patient is overall course did steadily improve and is felt to be related with CHF and likely pounded by his severe aortic stenosis. As discussed with cardiology that patient be referred to a tertiary facility for aortic valve replacement. [facility]. Patient would be discharged to the [facility] in stable condition. Patient will likely require heart catheterization which would need to be done monitoring closely with his creatinine as his creatinine is elevated slightly but it also appears that he likely has chronic kidney disease as well. [] Patient Problems: Active and Suspected Problems New onset of congestive heart failure (Acute) Elevated troponin I level (Acute) Respiratory failure with hypoxia (Acute) FREIDA (acute kidney injury) (Acute) Aortic valve stenosis (Acute) CHF (congestive heart failure) (Acute) Anemia (Acute) Sepsis (Acute) - Physical Exam Vitals/I&O's: Vital Signs Temp Pulse Resp BP Pulse Ox 37.2 C 65 18 128/52 H 95 02/24/20 14:31 02/24/20 14:48 02/24/20 14:31 02/24/20 14:31 02/24/20 14:31 Oxygen Flow Rate (L/min) 4 Oxygen Delivery Method Nasal Cannula Weight: 85.3 kg Body Mass Index (BMI) 27.5 Intake and Output for Last 24 Hours 02/22/20 02/23/20 02/24/20 23:59 23:59 23:59 Intake Total 1597.08 / 1597.08 2209.25 / 2209.25 960.55 / 960.55 Output Total 3975 / 3975 2125 / 2125 750 / 750 Balance -2377.92 / -2377.92 84.25 / 84.25 210.55 / 210.55 Microbiology Past 72 Hours 02/21/20 07:55 Blood Culture (Wb) - Left Forearm Blood Culture - Preliminary No growth in 48 hours. 02/21/20 07:55 Blood Culture (Wb) - Central Line Blood Culture - Preliminary No growth in 48 hours. 02/19/20 19:00 Blood Culture (Wb) - Right Wrist Blood Culture - Preliminary No growth in 48 hours. 02/19/20 22:55 Sputum, Induced/Lukens Gram Stain - Final 02/19/20 22:55 Sputum, Induced/Lukens Respiratory Culture - Final Laboratory Results 02/23/20 16:29: POC Glucose 231 H 02/23/20 21:43: POC Glucose 260 H 02/24/20 06:29: POC Glucose 205 H 02/24/20 07:48: WBC 9.7, RBC 2.61 L, Hgb 8.0 L, Hct 24.3 L, MCV 93.1, MCH 30.7, MCHC 32.9, RDW Std Deviation 47.7 H, RDW Coeff of Юлия 14.4, Plt Count 232, MPV 10.8, Immature Gran % (Auto) 0.900, Neut % (Auto) 68.3, Lymph % (Auto) 18.3 L, [place] % (Auto) 10.3 H, Eos % (Auto) 1.9, Baso % (Auto) 0.3, Absolute Neuts (auto) 6.6, Absolute Lymphs (auto) 1.77, Nucleated RBC % 0 02/24/20 07:48: Sodium 143, Potassium 3.8, Chloride 112 H, Carbon Dioxide 24.0, Anion Gap 7, BUN 62 H, Creatinine 2.05 H, Estim Creat Clear Calc 31.51, Est GFR (MDRD) Af Amer 41 L, Est GFR (MDRD) Non-Af 34 L, BUN/Creatinine Ratio 30.2 H, Glucose 188 H, Calcium 9.0, Total Bilirubin 0.30, AST 28, ALT 46, Alkaline Phosphatase 51, Troponin I 0.216 H, Total Protein 5.8 L, Albumin 2.1 L, Globulin 3.7, Albumin/Globulin Ratio 0.6 L 02/24/20 07:48: APTT 55.8 H 02/24/20 11:01: POC Glucose 216 H Current Medications Acetaminophen (Tylenol Liquid) 650 mg GT Q6H PRN PRN PRN Reason: Pain Score 1-10/Temp > 100.7 F Albuterol/Ipratropium (Duoneb) 3 ml INHALATION Q6HWA.RT [facility] Last Admin: 02/24/20 13:08 Dose: 3 ml Documented by: Allopurinol (Zyloprim) 300 mg PO DAILY [facility] Last Admin: 02/24/20 09:20 Dose: 300 mg Documented by: Aspirin (Aspirin, Baby) 81 mg PO 1000 [facility] Last Admin: 02/24/20 09:20 Dose: 81 mg Documented by: Atorvastatin Calcium (Lipitor) 40 mg PO QHS [facility] Last Admin: 02/23/20 21:40 Dose: 40 mg Documented by: Dextrose (D50w Syringe) 0 gm IV X1 PRN; Protocol PRN Reason: Hypoglycemia Furosemide (Lasix) 40 mg IV DAILY [facility] Glucagon () 1 mg IM .X1 PRN PRN Reason: Hypoglycemia Heparin Sodium (Porcine) (Heparin Na) 0 unit IV UD PRN; Protocol Last Admin: 02/20/20 21:59 Dose: 1,000 unit Documented by: Piperacillin Sod/Tazobactam (Sod 3.375 gm/ Sodium Chloride) 50 mls @ 12.5 mls/hr IV Q8 [facility] Last Admin: 02/24/20 14:25 Dose: 12.5 mls/hr Documented by: Sodium Chloride () 250 mls @ 15 mls/hr IV .[id number] PRN PRN Reason: Saline Flush Sodium Chloride () 250 mls @ 15 mls/hr IV .[id number] PRN PRN Reason: Additional IVPB Infusion Vancomycin IV Pharmacy to Dose (1 ea/ Sodium Chloride) 500 mls @ 250 mls/hr IV X1 PRN; Protocol PRN Reason: Rx to Dose Vancomycin HCl 750 mg/ Sodium (Chloride) 265 mls @ 250 mls/hr IV Q12H [facility] Last Infusion: 02/24/20 14:21 Dose: Infused Documented by: Insulin Human Lispro (Humalog [place] (Bkc)) 0 unit SC ACHS [facility]; Protocol Last Admin: 02/24/20 11:03 Dose: 4 units Documented by: Metoprolol Tartrate (Lopressor (Beta [place])) 50 mg PO BID [facility] Last Admin: 02/24/20 09:20 Dose: 50 mg Documented by: Nitroglycerin (Nitrostat) 0.4 mg SUBLINGUAL Q5M PRN PRN Reason: CARDIAC/CHEST PAIN Ondansetron HCl (Zofran) 4 mg IV Q8H PRN PRN PRN Reason: NAUSEA/VOMITING Pantoprazole Sodium (Protonix) 20 mg PO DAILY [facility] Last Admin: 02/24/20 09:20 Dose: 20 mg Documented by: Sodium Chloride () 10 - 40 ml IV UD PRN PRN Reason: SALINE FLUSH Last Admin: 02/24/20 09:21 Dose: 10 ml Documented by: Discharge Diet: 6 Cup Fluid Restriction, 2000 mg Sodium Diet Home Medications: Medications to take at Discharge Allopurinol [Zyloprim] 300 mg PO DAILY 02/19/20 Alogliptin Benzoate [Alogliptin] 12.5 mg PO DAILY 02/19/20 Aspirin E.C. [Ecotrin] 81 mg PO DAILY@0800 02/19/20 Chlorthalidone 37.5 mg PO DAILY 02/19/20 Lisinopril 20 mg PO BID 02/19/20 Metoprolol Tartrate 50 mg PO BID 02/19/20 [place]-3 Fatty Acids/Fish Oil [Fish Oil 1,000 mg Capsule] 1 cap PO DAILY 02/19/20 glipiZIDE [Glucotrol] 10 mg PO DAILY 02/19/20 metFORMIN HCl [Glucophage] 500 mg PO BIDCM 02/19/20 [facility] - Disposition: Acute care Hospital Minutes spent on discharge:: 45 Patient Condition:: Stable Medical Necessity - Tobacco Use Smoking Status: Heavy Smoker (>10/day) Tobacco Use: Cigarettes Meaningful Use Info Meaningful Use Diagnoses (Choose all that apply): CHF - CHF MIGUEL/ARB ordered at discharge?: No Reason MIGUEL/ARB not ordered?: Worsening renal dysfunctn Documented LVEF (%): 50 Inpatient E&M: 92300 Disch Hosp
[2020-02-24 16:50] LABS: Bedside Glucose 311 mg/dL (70-110)
== END 2020-02-24 18:15 | disposition short-term general hospital (02) | DRG 871 ==
LOC: ED 14:51 → ICU 18:47 → PCU 02-23 14:52
PROVIDERS: Internal Medicine Critical Care Medicine; Emergency Provider Emergency Medicine; Visit Provider Family Medicine
DX: A41.9 Sepsis, unspecified organism (principal); J96.01 Acute respiratory failure with hypoxia; I50.33 Acute on chronic diastolic (congestive) heart failure; N17.0 Acute kidney failure with tubular necrosis; R65.21 Severe sepsis with septic shock; I21.A1 Myocardial infarction type 2; I13.0 Hypertensive heart and chronic kidney disease with heart failure and stage 1 through stage 4 chronic kidney disease, or unspecified chronic kidney disease; I08.0 Rheumatic disorders of both mitral and aortic valves; E11.22 Type 2 diabetes mellitus with diabetic chronic kidney disease; N18.3 Chronic kidney disease, stage 3 (moderate); F17.210 Nicotine dependence, cigarettes, uncomplicated; M10.9 Gout, unspecified; E78.5 Hyperlipidemia, unspecified; K21.9 Gastro-esophageal reflux disease without esophagitis; D64.9 Anemia, unspecified; I95.2 Hypotension due to drugs; T42.75XA Adverse effect of unspecified antiepileptic and sedative-hypnotic drugs, initial encounter
CPT/HCPCS: 31500; 31720; 36415; 36600; 71045; 74018; 80053; 80061; 80202; 82728; 82803; 82962; 83036; 83605; 83615; 83735; 83880; 84145; 84439; 84443; 84484; 85025; 85379; 85610; 85730; 86140; 87040; 87070; 87149; 87205; 87449; 87633; 87635; 87641; 93005; 93306; 94002; 94003; 94640; 94660; 96374; 96376; 97110; 97116; 97163; 97166; 97530; 97802; 99251; 99285; J7050; J7120; Q9957; A4216; C1751; C8929; G0463; J1940; U0004

== ENCOUNTER 2020-03-26 23:10 | Emergency (ER) | payer MEDICARE, OTHER, SELFPAY ==
[2020-02-20 10:11] VITALS: BMI 27.5
[2020-03-26 23:11] VITALS: BP 175/59; BP 189/62; PULSE 76; RESP 16; TEMP 36.8; O2SAT 99; BMI 27.7
[2020-03-26] MEDS: 0.9% Normal Saline 1,000 ML 150 ML IV (23:47)
[2020-03-26 23:52] LABS: Absolute Lymphocyte Count 1.29 X10^3/uL (0.83-4.51); Basophil# 0.03 X10^3/uL; Basophil% 0.4 % (0-1); Eosinophil# 0.18 X10^3/uL; Eosinophils% 2.2 % (0-5); Hematocrit 25.2 % (40-54); Hemoglobin 8.2 g/dL (13.0-16.5); Lymphocyte # 1.29 X10^3/ul (4.0); Lymphocyte % 15.7 % (19-41); Mean Corp Hgb Conc 32.5 g/dL (32-36); Mean Corpuscular Hgb 30.5 pg (27.0-32.0); Mean Corpuscular Volume 93.7 fL (80-94); Mean Platelet Vol. 10.1 fl (6.2-12.0); Monocyte# 0.74 X10^3/uL; NRBC Flagged by Analyzer 0 % (0-5); Neutrophil # 5.96 X10^3/uL (2.7-7.7); Neutrophil % 72.2 % (47-70); Platelet Count 329 K/mm3 (150-450); RBC Distribution Width CV 13.8 % (11.6-14.6); Red Blood Count 2.69 M/mm3 (4.6-6.2); White Blood Count 8.2 K/mm3 (4.4-11.0)
[2020-03-27 00:08] LABS: Anion Gap 6 (5-15); BUN 50 mg/dL (7-18); BUN/Creat Ratio 27.5 RATIO (10-20); Calcium,Total 8.9 mg/dL (8.5-10.1); Chloride 112 mmol/L (98-107); Creatinine, Serum 1.82 mg/dL (0.70-1.30); EST Glomerular Filtration Rate 39 mL/min (>60); Est Glom Filt Rate - Afr Amer 47 mL/min (>60); Estimated Creatinine Clearance 35.49 ml/min; Glucose 101 mg/dL (74-106); Potassium 5.3 mmol/L (3.5-5.1); Sodium Level 141 mmol/L (136-145)
--- NOTE | 2020-03-27 00:31 | NURSING ---
[facility] ABOUT [facility] AND WAS TOLD THEY WERE NOT TAKING ANY TRANSFERS THIS EVENING. THEY GOT THE PT'S INFO AND SAID THEY WILL CALL IN THE MORNING.
--- NOTE | 2020-03-27 01:23 | ED.VISSUMM ---
- ER Visit Summary Date of Service: 03/27/20 Chief Complaint: [Bleeding from right groin] History of Present Illness: The patient is a 74 M [presents to the emergency department with bleeding from his right groin puncture site that started yesterday. Patient states that 2-1/2 weeks ago he had a T AVR procedure performed at the [facility] at [facility] in [place]. Patient states that he was more active yesterday and then noticed some blood oozing from the groin site however it did stop and [facility] called the [facility] who then instructed him to discontinue his aspirin and Plavix. Tonight patient had an episode again of spontaneous bleeding with large amount of blood. Patient called EMS. He denies any pain to the area. He denies any fevers. He denies any cough or COVID-19 symptoms.] Physical Examination: [HEENT-PERRLA, EOMI. Cranial nerves II through XII grossly intact. TMs clear. Mucous membranes moist. No adenopathy. Cardiovascular-regular rate and rhythm without murmur or ectopy Lungs-clear to auscultation, chest wall stable without crepitus or subcu emphysema Abdomen-normoactive bowel sounds, soft, nontender, no rebound or rigidity, no peritoneal signs. Extremities-intact ?4, normal range of motion, normal pulses. Right groin-patient does have small puncture wound noted with small amount of active bright red bleeding noted from the wound site. On arrival he had a towel over the area that was saturated with blood and clot. Patient does have some fullness over the femoral artery. Normal distal pulses.] Test Results: [CBC with differential obtained showed a white count of 8.2, hemoglobin 8.2, hematocrit 25.2, platelets 329. Chemistries unremarkable other than a slightly elevated potassium of 5.3. BUN was 50 and creatinine 1.82.] I am unable to obtain a vascular study to evaluate for pseudoaneurysm. Given patient's kidney function I was hesitant about obtaining a CTA of the groin and after discussion with cardiology was felt that CTA of the groin would not be the ideal study. Emergency Department Course and Treatment: [Patient had direct pressure applied to the wound and had sandbag then applied as well. Bleeding was controlled. I did discuss case with our health care marketing manager who recommended transfer to the [facility] for further evaluation of the site. [facility] however they are not accepting any transfers tonight. [facility] their [facility] surgeon refused the transfer due to his lack of experience with these type of issues related to the TAVR procedure and recommended that we transfer patient to the main campus at [facility].] Discussed case with [facility] physicians who accepted transfer of patient. Treatment Plan: [Transfer] Disposition: [Transfer] Impression: [Postop bleeding from her right groin] This note was generated with [employer] dictation software. It may contain incorrect words, spelling, and punctuation that were not noted in review of the chart prior to signing ED Disposition - Plan for ED Patient: [facility] [Primary [facility] Provider] -
[2020-03-27 02:35] VITALS: BP 157/57; PULSE 70; RESP 16; TEMP 36.7; O2SAT 99
[2020-03-27 03:42] VITALS: BP 157/57; PULSE 70; RESP 16; O2SAT 99
== END 2020-03-27 03:50 | disposition short-term general hospital (02) ==
LOC: ED 03-27 00:07
PROVIDERS: Emergency Provider Emergency Medicine
DX: I97.618 Postprocedural hemorrhage of a circulatory system organ or structure following other circulatory system procedure (principal); E11.9 Type 2 diabetes mellitus without complications; E78.00 Pure hypercholesterolemia, unspecified; I50.9 Heart failure, unspecified; I11.0 Hypertensive heart disease with heart failure; Z79.82 Long term (current) use of aspirin; Z79.84 Long term (current) use of oral hypoglycemic drugs
CPT/HCPCS: 80048; 85025; 96360; 96361; 99285; J7030; A4216

== ENCOUNTER 2020-10-20 10:03 | Emergency (ER) | payer OTHER, SELFPAY ==
[2020-10-20] VITALS (15 sets, daily range): BP systolic 159–185; BP diastolic 55–70; PULSE 62–81; RESP 14–19; TEMP 35.9–36.4; O2SAT 95–100; BMI 25.3
--- NOTE | 2020-10-20 10:04 | CT_ITS ---
STUDY: CT HEAD STROKE PROTOCOL W/O CONTRAST INJECTION REASON FOR EXAM: Male, 75 years old. STROKE RADIATION DOSAGE (If Supplied By Facility): CTDIvol = ( 44.99 ) mGy, DLP = ( 796.11 ) mGycm TECHNIQUE: Transaxial CT imaging of the brain was performed without administration of intravenous contrast material. Individualized dose optimization techniques were used for this CT. COMPARISON: No relevant priors. FINDINGS: Normal soft tissue structures. Normal calvarium. There is mild cerebral atrophy with widening of the extra-axial spaces and ventricular dilatation. There are areas of decreased attenuation within the white matter tracts of the supratentorial brain, consistent with microvascular disease changes. Normal basal ganglia and thalami. Normal brainstem. Focal encephalomalacia in the left cerebellar hemisphere in keeping with a prior stroke. There is mild cerebellar atrophy. There is no intracranial hemorrhage. There are no findings of an acute ischemic infarction. Atherosclerotic calcification of the cavernous portions of the internal carotid arteries bilaterally. Normal visualized paranasal sinuses. CT/STROKE Brain/Head without Cont IMPRESSION: Chronic involutional changes of the brain. 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 N.B. : The above information has been verbally conveyed by Rafael Camilo to Lina uS on 10/20/2020 10:18:34 (ET). Electronically Signed: Rafael Camilo, at 10:19 EST , Service support ,
--- NOTE | 2020-10-20 10:17 | ED.VIS.STROK ---
History of Present Illness Chief Complaint: Neuro S/Sx Informant: Patient, Family, O And M Supervisor Onset: Today Quality and Location: Right Facial Droop, Right Arm Weakness, Right Leg Weakness, Slurred Speech, Expressive Aphasia Current Severity: Moderate Maximum Severity: Moderate Associated Symptoms: Negative for: Headache Narrative: Patient presents via EMS as a stroke alert. Patient reportedly went outside to smoke at 9 AM. He came back in the home short time later and daughter found him lying on the floor in his room. He had difficulty with speech. EMS noted speech difficulty and stated he was leaning to the side. Past history is significant for heart valve replacement approximately 1 year ago. He is on aspirin but I do not see any other anticoagulants. - Past Medical History (1) COPD (chronic obstructive pulmonary disease) Status: Chronic (2) CHF (congestive heart failure) Status: Chronic (3) HLD (hyperlipidemia) Status: Chronic (4) Hypertension Status: Chronic (5) Type 2 diabetes mellitus Status: Chronic Past Medical History - Allergies and Home Meds Allergies/Adverse Reactions: Allergies No Known Allergies Allergy (Verified 10/20/20 10:21) [facility] [place] - Surgical History: noncontributory Lives: With Family Smoking Status: Former smoker - Family History Maternal Family History: Reports: - - No CAD Review of Systems General: Denies: Fever Cardiovascular: Denies: Chest pain, Palpitations Respiratory: Denies: Dyspnea Musculoskeletal: Denies: Extremity Pain Neurological: Reports: Weakness. Denies: Headache STROKE Vital Signs/Narrative: Vital Signs Temp Pulse Resp BP Pulse Ox 10/20/20 10:15 81 19 H 159/70 H 97 10/20/20 10:09 97.5 F L 71 19 H 100 10/20/20 10:04 96.7 F L Inital Vital Signs reviewed: Yes General: Well nourished, Well developed Head: Normocephalic Eyes: EOMI ENT: Moist mucous membranes Cardiovascular: Regular rate, Regular rhythm Respiratory: No distress, CTA bilaterally Abdomen: Soft, Nontender Neurological: Alert, - - Patient has an NIH score of 7. He has right facial droop, right arm and right leg weakness, and expressive aphasia. Diagnostic/Tx/Re-eval Clinical Impression(s) from Imaging Studies Brain CT 10/20/20 10:04 IMPRESSION: Chronic involutional changes of the brain. 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 N.B. : The above information has been verbally conveyed by Rafael Camilo to Lina Perezine on 10/20/2020 10:18:34 (ET). Electronically Signed: Rafael Ton, at 10:19 EST , Service support , ADDENDUM: 10/20/20 1026 IMPRESSION: Chronic involutional changes of the brain. 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 N.B. : The above information has been verbally conveyed by Rafael Camilo to Lina Su on 10/20/2020 10:18:34 (ET). Electronically Signed: Rafael Camilo, at 10:19 EST , Service support , Head/Neck CTA 10/20/20 10:27 IMPRESSION: Atherosclerotic plaque formation at the origin of the right internal carotid artery causing greater than 70% narrowing. Atherosclerotic calcific plaques at the origin of the left internal carotid artery causing between 50 and 69% stenosis. Electronically Signed: Rafael Camilo, at 10:57 EST , Service support , Chest X-Ray 10/20/20 10:50 IMPRESSION: Residual infiltration in the right midlung and right lung base although this has improved as compared to prior study. Minimal residual changes at the left lung base. Electronically Signed: Rafael Camilo, at 11:08 EST , Service support , Chest X-Ray - ED: 1 View, Read by ED Physician, Chronic Changes - Old appearing right infiltrate, improved from prior study - EKG Initial EKG Interpretation: Sinus Rhythm - Sinus at 72 with no acute ischemia. - Medical Decision Making Stroke Team Activated: Yes Reviewed Inclusion/Exclusion criteria: Yes IV Alteplase (t-PA) Administered: Yes No contraindications for IV Alteplase (t-PA) administration.: Yes Alteplase (t-PA) risks, benefits, alternative discussed: Yes - Discussed with daughter at bedside and consent given. Stroke team was activated prior to patient arrival. Patient was taken immediately to CT scanner. I spoke with the [facility] neurology attending. We agreed that TPA would be a good treatment option in this patient. Consent form was thoroughly reviewed with daughter at bedside. She was given opportunity to ask questions. TPA was administered. Patient was sent back for CTA at request of [facility] neurologist. There is a 70% or greater narrowing of the right internal carotid and 50 to 70% on the left. I discussed the case again with [facility] neurology who did feel patient should have an angio to further evaluate this. Patient will be transferred to [facility] ER and met by their stroke team. Addendum: Patient was given TPA in the emergency room. Nursing staff did note some improvement in facial droop and right-sided strength, however on repeat checks noted this to be worsening again. Patient's blood pressure at one point did rise above 180 and was given a dose of labetalol. He was sent back to CT scan. Noncontrast head CT per my review does not show evidence of acute hemorrhage at this time. Transfer ambulance is currently at bedside to transport to [facility]. Family at bedside has been updated throughout. Critical care time (excluding procedures): Including time spent: - Critical care time equals 45 minutes. This includes time spent with patient and family providing direct patient care and education along with design consultant discussion and arranging transfer. ED Disposition - Plan for ED Patient: Disposition: [facility] Diagnosis: CVA (cerebral vascular accident) [facility] [[facility]] -
--- NOTE | 2020-10-20 10:18 | CM.ED ---
Social Work Consult: Stroke Alert Met with patient daughter, Daphney. This health care social worker collaborating with medical team and facilitating Daphney being in patient room. Per Daphney patient lives with Daphney and is independent with ambulation. Daphney reports to be Health Care Power of Knife Cutter for patient. Of note: HCPOA paperwork not on chart. This health care social worker to follow up to inquire about paperwork for HCPOA. Support provided to Daphney. Will continue to follow as needed. Cristina Arana MSW, [facility]
[2020-10-20 10:20] LABS: Absolute Lymphocyte Count 1.07 X10^3/uL (0.83-4.51); Absolute Neutrophil Count 2.2 X10^3/uL (2.0-7.7); Basophil# 0.01 X10^3/uL; Basophil% 0.3 % (0-1); Eosinophil# 0.02 X10^3/uL; Eosinophils% 0.5 % (0-5); Hematocrit 25.9 % (40-54); Hemoglobin 7.9 g/dL (13.0-16.5); Lymphocyte # 1.07 X10^3/ul (4.0); Lymphocyte % 28.5 % (19-41); Mean Corp Hgb Conc 30.5 g/dL (32-36); Mean Corpuscular Hgb 25.8 pg (27.0-32.0); Mean Corpuscular Volume 84.6 fL (80-94); Mean Platelet Vol. 11.5 fl (6.2-12.0); Monocyte# 0.39 X10^3/uL; Monocyte% 10.4 % (0-10); NRBC Flagged by Analyzer 0 % (0-5); Neutrophil # 2.23 X10^3/uL (2.7-7.7); Neutrophil % 59.2 % (47-70); Platelet Count 172 K/mm3 (150-450); RBC Distribution Width CV 14.6 % (11.6-14.6); RBC Distribution Width SD 45.2 fl (35.1-43.9); Red Blood Count 3.06 M/mm3 (4.6-6.2); White Blood Count 3.8 K/mm3 (4.4-11.0)
--- NOTE | 2020-10-20 10:27 | CT_ITS ---
STUDY: CTA HEAD AND NECK WITH CONTRAST REASON FOR EXAM: Male, 75 years old. CVA, right sided weakness, slurred speech. RADIATION DOSAGE (If Supplied By Facility): CTDIvol = ( 21.37 ) mGy, DLP = ( 701.16 ) mGycm TECHNIQUE: CT angiography was performed with a multi-detector CT scanner. Data acquisition was obtained from the skull base through the vertex following intravenous administration of IV 100mL [id number]. MIP images were reconstructed from the axial data set. Post-processing of the angiographic images was performed, with multiplanar reformation and 3D reconstruction. Individualized dose optimization techniques were used for this CT. COMPARISON: No relevant priors. FINDINGS: Normal bilateral petrous carotid arteries. There is calcified plaque formation of the right cavernous carotid artery, without a cross-sectional luminal stenosis. There is calcified plaque formation of the left cavernous carotid artery, without a cross-sectional luminal stenosis. Normal right A1 segments of the anterior cerebral artery. Normal left A1 segments of the anterior cerebral artery. Normal intact anterior communicating artery (ACOM). Normal bilateral A2 segments of the anterior cerebral arteries. Normal right M1 and M2 segments of the middle cerebral arteries, with a normal M1 bifurcation. Normal left M1 and M2 segments of the middle cerebral arteries, with a normal M1 bifurcation. Normal right posterior communicating artery (PCOM). Normal left posterior communicating artery (PCOM). Normal bilateral vertebral arteries. Normal basilar artery with a normal basilar bifurcation. The visualized bilateral superior cerebellar (SCA) arteries are normal. Normal bilateral P1, P2 and visualized P3 segments of the posterior cerebral arteries. There is no demonstrated aneurysm of the pamunkey of Arshad. AORTIC ARCH: There is atherosclerotic calcific plaque formation of the aortic arch and great vessels arising from the aortic arch, without a hemodynamically significant stenosis. There is a normal origin of the brachiocephalic, left common carotid, and left subclavian arteries. Atherosclerotic plaque formation at the origin of the left subclavian artery and right brachiocephalic artery. RIGHT CAROTID ARTERIES: There is atherosclerotic plaque formation of the common carotid artery, but without a hemodynamically significant stenosis. Normal right common carotid bulb. There is extensive atherosclerotic plaque formation of the origin of the right internal carotid artery with an estimated stenosis of greater than 70%. Normal visualized cervical portion of the right internal carotid artery. Normal origin of the right external carotid artery (ECA). LEFT CAROTID ARTERIES: There is atherosclerotic plaque formation of the common carotid artery, but without a hemodynamically significant stenosis. Normal left common carotid bulb. There is moderate atherosclerotic plaque formation of the origin of the left internal carotid artery with an estimated stenosis of 50-69% stenosis. Normal visualized cervical portion of the left internal carotid artery. Normal origin of the left external carotid artery (ECA). VERTEBRAL ARTERIES: Normal bilateral vertebral arteries. CT/CTA Head AND Neck W/ Contrast IMPRESSION: Atherosclerotic plaque formation at the origin of the right internal carotid artery causing greater than 70% narrowing. Atherosclerotic calcific plaques at the origin of the left internal carotid artery causing between 50 and 69% stenosis. Electronically Signed: Rafale Camilo, at 10:57 EST , Service support ,
[2020-10-20 10:31] LABS: Prothrombin Time (Protime)PT. 13.5 SECONDS (11.7-14.9)
[2020-10-20 10:33] LABS: International Normalized Ratio 1.1
[2020-10-20 10:34] LABS: Partial Thromboplast Time 32.8 Seconds (24.1-36.2)
[2020-10-20 10:36] LABS: Anion Gap 8 (5-15); BUN 56 mg/dL (7-18); Calcium,Total 7.9 mg/dL (8.5-10.1); Chloride 106 mmol/L (98-107); Creatinine, Serum 2.33 mg/dL (0.70-1.30); EST Glomerular Filtration Rate 29 mL/min (>60); Est Glom Filt Rate - Afr Amer 35 mL/min (>60); Estimated Creatinine Clearance 27.32 ml/min; Glucose 367 mg/dL (74-106); Potassium 4.9 mmol/L (3.5-5.1); Sodium Level 136 mmol/L (136-145)
--- NOTE | 2020-10-20 10:50 | RAD_ITS ---
STUDY: X-RAY CHEST REASON FOR EXAM: Male, 75 years old. SLURRED SPEECH AND LEANING TO THE RIGHT. -- CHF, COPD TECHNIQUE: Single AP portable view of the chest. COMPARISON: Comparison is made with prior study dated 02/23/2020. FINDINGS: EKG electrodes are seen. Persistent infiltration in the right midlung and right lower lobe although this has improved as compared to prior study. Minimal residual changes persist at the left lung base. There is no demonstrated pleural abnormality. Normal size heart. Normal mediastinum and sugey. Normal visualized pulmonary arteries. There is atherosclerotic calcification of the aortic arch with tortuosity. Normal visualized thoracic spine. Normal visualized ribs, clavicles, and shoulders. There is no demonstrated abnormality of the visualized soft tissue structures of the upper abdomen. RAD/Chest 1 View IMPRESSION: Residual infiltration in the right midlung and right lung base although this has improved as compared to prior study. Minimal residual changes at the left lung base. Electronically Signed: Rafael Camilo, at 11:08 EST , Service support ,
[2020-10-20] MEDS: 0.9% Normal Saline 1,000 ML 100 ML IV (10:57)
--- NOTE | 2020-10-20 11:08 | CM.ED ---
Social Work Following up with daughter for support. This social work faculty member inquired about HCPOA paperwork. Patient daughter confirms to have documents and plans to bring those in. Cristina Arana MSW, MARIBEL-S
--- NOTE | 2020-10-20 11:56 | CM.ED ---
Social Work Patient family requesting to speak with this neonatal social worker. Patient daughter reports we found the documents but they are not completed in regards to the HCPOA. This neonatal social worker provided patient daughter with rack card to set up advanced care planning meeting with social sciences department chair at [facility] to complete documents when patient is able to focus more. Patient is currently being transferred to [facility] for further medical management. Cristina AWAN, ARTURO
--- NOTE | 2020-10-20 12:05 | CT_ITS ---
STUDY: CT BRAIN WITHOUT CONTRAST REASON FOR EXAM: Male, 75 years old. Weakness right side, worsening neuro symptoms, patient was given TPA, CTA performed at 1030 RADIATION DOSAGE (If Supplied By Facility): CTDIvol = ( 44.99 ) mGy, DLP = ( 863.60 ) mGycm TECHNIQUE: Transaxial CT imaging of the brain was performed without administration of intravenous contrast material. Individualized dose optimization techniques were used for this CT. COMPARISON: Comparison is made with prior examination done earlier in the day. FINDINGS: Normal soft tissue structures. Normal calvarium. There is mild cerebral atrophy with widening of the extra-axial spaces and ventricular dilatation. There are areas of decreased attenuation within the white matter tracts of the supratentorial brain, consistent with microvascular disease changes. Normal basal ganglia and thalami. Normal brainstem. Stable encephalomalacia in the right cerebellar hemisphere. There is no intracranial hemorrhage. There are no findings of an acute ischemic infarction. Normal visualized paranasal sinuses. CT/Brain/Head without Contrast IMPRESSION: Chronic involutional changes of the brain. Stable examination. Electronically Signed: Rafael Camilo, at 12:25 EST , Service support ,
[2020-10-20] MEDS: Labetalol (Prefilled) 20 MG/4 ML IV (12:07)
--- NOTE | 2020-10-20 12:08 | NURSING ---
CALLED PHYSICIANS AT 1208 AND THEY SAID THEY WOULD BE HERE IN 5 MINUTES.
--- NOTE | 2020-10-20 12:28 | ED.RN ---
[facility] CALLED AND UPDATED ON PT STATUS: PTS SYMPTOMS WERE IMPROVING WHILE TPA WAS INFUSING. SHORTLY AFTER TPA FINISHED INFUSING PTS SYMPTOMS RETURNED. RIGHT FACIAL DROOP, RIGHT ARM WEAKNESS WITH NO ATTEMPT AGAINST GRAVITY, LITTLE ATTEMPT AGAINST GRAVITY FOR RIGHT LEG. [facility] NOTIFIED PT IS ENROUTE TO THEM.
== END 2020-10-20 12:35 | disposition short-term general hospital (02) ==
PROVIDERS: Emergency Provider Emergency Medicine
DX: I63.9 Cerebral infarction, unspecified (principal); E11.9 Type 2 diabetes mellitus without complications; I11.0 Hypertensive heart disease with heart failure; I50.9 Heart failure, unspecified; Z95.2 Presence of prosthetic heart valve; Z79.82 Long term (current) use of aspirin; Z79.84 Long term (current) use of oral hypoglycemic drugs
CPT/HCPCS: 51702; 70450; 70496; 70498; 71045; 80048; 84484; 85025; 85610; 85730; 93005; 96365; 96375; 99285; J2997; J7030; Q9967; A4216